=== PATIENT | male | born 1935 | race Caucasian/White ===

== ENCOUNTER 2020-01-20 09:15 | Inpatient (IN) | payer MEDICARE, OTHER ==
[2020-01-20] MEDS ORDERED: NALOXONE 0.4 MG/ML 1 ML VIAL IV PRN (17:38)
[2020-01-20] MEDS ORDERED: ACETAMINOPHEN TAB 500 MG TAB PO PRN (17:41)
[2020-01-20] MEDS ORDERED: IPRATROPIUM-ALBUTEROL 3 ML NEB INHALATION PRN (17:41)
[2020-01-20] MEDS ORDERED: HYDROmorphone 0.5 MG/0.5 ML SYRINGE IVP PRN (17:41)
--- NOTE | 2020-01-20 18:18 | XR ---
EXAMINATION TYPE: XR chest 1V portable DATE OF EXAM: 01/20/2020 COMPARISON: NONE HISTORY: Rib fractures. Pain TECHNIQUE: Single view FINDINGS: There is some pulmonary vascular congestion. Heart is enlarged. There are sternal wires. Th ere are chest leads. There is severe narrowing of the subacromial joint spaces. There is fracture of the lateral right eighth and ninth ribs. There is osteopenia. IMPRESSION: There is evidence of congestive heart failure. Right lower lateral nondisplaced rib fractures.
[2020-01-20 18:19] LABS: Anisocytosis Slight; Basophils % (A) 0 %; Eosinophils # (A) 0.1 k/uL (0-0.7); Eosinophils % (A) 0 %; HGB 7.9 gm/dL (13.0-17.5); Hypochromasia Marked; Lymphocytes # (A) 0.7 k/uL (1.0-4.8); Lymphocytes % (A) 5 %; MCH 21.2 pg (25.0-35.0); MCHC 28.2 g/dL (31.0-37.0); MCV 75.3 fL (80.0-100.0); Mean Platelet Volume 7.3; Microcytosis Slight; Monocytes # (A) 0.5 k/uL (0-1.0); Monocytes % (A) 4 %; Neutrophils # (A) 11.6 k/uL (1.3-7.7); Neutrophils % (A) 89 %; Platelet Count 377 k/uL (150-450); RBC 3.71 m/uL (4.30-5.90); RDW 17.7 % (11.5-15.5); WBC 13.1 k/uL (3.8-10.6)
[2020-01-20] MEDS: SODIUM CHLORIDE 0.9% 1,000 ML IV SCH (18:39)
[2020-01-20 18:44] LABS: Calcium 8.4 mg/dL (8.4-10.2); Magnesium 1.7 mg/dL (1.6-2.3); Phosphorus 4.2 mg/dL (2.5-4.5); Potassium 5.1 mmol/L (3.5-5.1); Total Bilirubin 0.3 mg/dL (0.2-1.3); Total Protein 6.9 g/dL (6.3-8.2)
[2020-01-20] MEDS: FUROSEMIDE 10 MG/ML 4 ML VIAL IV SCH (18:47)
--- NOTE | 2020-01-20 19:59 | P.CNPUL ---
History of Present Illness Consult date: 01/20/20 Chief complaint: rib fracture History of present illness: A very pleasant 62-year-old male patient with known history of dementia and addition to coronary artery disease with previous bypass surgery and previous stroke with left-sided weakness and diabetes mellitus and previous history of pulmonary embolism that occurred 2 years ago has limited on Xarelto on outpatient basis. The patient had a bout of fall yesterday. Apparently tried to go to the bathroom at around 5 AM and he was found on the floor. There is no reported loss of consciousness. He apparently tripped and fell and he landed on his right chest. he went into [facility] with a CAT scan of the chest was done. This was done with contrast. It reported a questionable right lower lobe pulmonary embolism. As background emphysema. In addition to that the patient had fractures extending from the fifth 2 the 10th rib. The chest x-ray showing increased pulmonary vascular congestion/edema. He is known to have CAD and CHF. No major edema lower extremities. Currently is on 3 L about 2 by nasal cannula. He is a bit confused. Is a poor historian. Most of the information obtained is from the . No hematoma across his right chest. No bleeding. Hemoglobin currently is at 7.9. Creatinine is at 1.3. Glucose at 232. Electrodes are within normal limits. White cell count at 13.1. The patient was started on IV Lasix. In regards to pain control, the patient is receiving Dilaudid 0.5 mg every 6 hours. Over the past 1 year, the patient had another episode of fall that left no injuries to his body. Of the Brain That Was Done and [facility] Showed No Acute Intracranial Hemorrhage and There Is No Acute Abnormalities. There Is a Old Stroke Involving the Right Insular White Matter. Review of Systems ROS unobtainable: due to mental status Eyes: denies as per HPI, denies blurred vision, denies bulging eye, denies decreased vision, denies diplopia, denies discharge, denies dry eye, denies irritation, denies itching, denies pain, denies photophobia, denies loss of per ipheral vision, denies loss of vision, denies tunnel vision/blind spots Ears: bilateral: decreased hearing, deny: ear discharge, earache, tinnitus Ears, nose, mouth and throat: Reports as per HPI Cardiovascular: Reports chest pain Respiratory: Reports as per HPI Gastrointestinal: Reports as per HPI Genitourinary: Reports as per HPI, Reports urinary frequency Musculoskeletal: Reports fractures, Reports frequent falls Musculoskeletal: absent: ankle pain, ankle stiffness, ankle swelling Integumentary: Reports as per HPI Neurological: Reports as per HPI Psychiatric: Reports as per HPI, Reports anxiety Endocrine: Reports as per HPI, Reports fatigue Hematologic/Lymphatic: Reports as per HPI Allergic/Immunologic: Reports as per HPI Past Medical History Past Medical History: Coronary Artery Disease (CAD), Chest Pain / Angina, CVA/TIA, Dementia, Diabetes Mellitus, Hyperlipidemia, Hypertension, Memory Impai rment, Myocardial Infarction (NM), Osteoarthritis (OA), Prostate Disorder, Pulmonary Embolus (PE) Additional Past Medical History / Comment(s): BPH, PE Last Myocardial Infarction Date:: 2007 History of Any Multi-Drug Resistant Organisms: None Reported Past Surgical History: Appendectomy, Coronary Bypass/CABG, Heart Catheterization With Stent, Tonsillectomy Additional Past Surgical History / Comment(s): TRKR, bilat rotator cuff surgery, Past Anesthesia/Blood Transfusion Reactions: Previous Problems w/ Anesthesia Additional Past Anesthesia/Blood Transfusion Reaction / Comment(s): difficult to wake up Date of Last Stent Placement:: 2007 Smoking Status: Former smoker - Past Family History Father Family Medical History: Cancer Additional Family Medical History / Comment(s): lung CA Mother Family Medical History: AICD/Pacemaker Medications and Allergies Home Medications Medication Instructions Recorded Confirmed Type Donepezil [Aricept] 5 mg PO HS 01/20/20 01/20/20 History Metoprolol Tartrate 25 mg PO DAILY 01/20/20 01/20/20 History Omeprazole 20 mg PO BID 01/20/20 01/20/20 History Oxybutynin Chloride [Ditropan] 5 mg PO BID 01/20/20 01/20/20 History Pravastatin Sodium [Pravachol] 40 mg PO HS 01/20/20 01/20/20 History Rivaroxaban [Xarelto] 20 mg PO HS 01/20/20 01/20/20 History Sertraline [Zoloft] 50 mg PO DAILY 01/20/20 01/20/20 History Tamsulosin [Flomax] 0.4 mg PO DAILY 01/20/20 01/20/20 History glipiZIDE [Glucotrol XL] 10 mg PO BID 01/20/20 01/20/20 History metFORMIN HCL 1,000 mg PO DAILY 01/20/20 01/20/20 History Allergies Allergy/AdvReac Type Severity Reaction Status Date / Time No Known Allergies Allergy Verified 01/20/20 18:06 Physical Exam Vitals: Vital Signs Temp Pulse Resp BP Pulse Ox 01/20/20 17:13 97.4 F L 90 17 135/72 89 L Intake and Output 01/20/20 01/20/20 01/20/20 06:59 14:59 22:59 Intake Total 240 Balance 240 Intake: Oral 240 Other: Weight 89 kg Gen. appearance, comfortable currently on 6 L of oxygen by nasal cannula. No significant respiratory distress at this point in time. He is a poor historian. Unable to volunteer detailed history. Head exam was generally normal. There was no scleral icterus or corneal arcus. Mucous membranes were moist. Neck was supple and without jugular venous distension, thyromegaly, or carotid bruits. Carotids were easily palpable bilaterally. There was no adenopathy. Lungs sounds are diminished and there are crackles in the mid and lower lung tsai bilaterally. There is also soreness across his right lateral chest area. This is sore to palpation. No hematoma. No major deformities. Cardiac exam revealed the PMI to be normally situated and sized. The rhythm was regular and no extrasystoles were noted during several minutes of auscultation. The first and second heart sounds were normal and physiologic splitting of the second heart sound was noted. There were no murmurs, rubs, clicks, or gallops. There is a thoracotomy scar over the anterior chest area which is dry clean and intact. Final abdomen Abdominal exam revealed normal bowel sounds. The abdomen was soft, non-tender, and without masses, organomegaly, or appreciable enlargement of the Examination of the extremities revealed easily palpable radial, femoral and pedal pulses. There was no cyanosis, clubbing or edema. Examination of the skin revealed no evidence of significant rashes, suspicious appearing nevi or other concerning lesions. Neurologically the patient has some limited impairment including memory. Is moving all 4 extremities without any limitation. Pupils are equal and reactive to light. He has some left-sided weakness. This is related to a previous CVA. Results - Laboratory Findings CBC and BMP: 01/20/20 17:58 01/20/20 17:58 ABG WBC 13.1 k/uL (3.8-10.6) H 01/20/20 17:58 RBC 3.71 m/uL (4.30-5.90) L 01/20/20 17:58 Hgb 7.9 gm/dL (13.0-17.5) L 01/20/20 17:58 Hct 28.0 % (39.0-53.0) L 01/20/20 17:58 MCV 75.3 fL (80.0-100.0) L 01/20/20 17:58 MCH 21.2 pg (25.0-35.0) L 01/20/20 17:58 MCHC 28.2 g/dL (31.0-37.0) L 01/20/20 17:58 RDW 17.7 % (11.5-15.5) H 01/20/20 17:58 Plt Count 377 k/uL (150-450) 01/20/20 17:58 Neutrophils % 89 % 01/20/20 17:58 Lymphocytes % 5 % 01/20/20 17:58 Monocytes % 4 % 01/20/20 17:58 Eosinophils % 0 % 01/20/20 17:58 Basophils % 0 % 01/20/20 17:58 Neutrophils # 11.6 k/uL (1.3-7.7) H 01/20/20 17:58 Lymphocytes # 0.7 k/uL (1.0-4.8) L 01/20/20 17:58 Monocytes # 0.5 k/uL (0-1.0) 01/20/20 17:58 Eosinophils # 0.1 k/uL (0-0.7) 01/20/20 17:58 Basophils # 0.0 k/uL (0-0.2) 01/20/20 17:58 Hypochromasia Marked 01/20/20 17:58 Anisocytosis Slight 01/20/20 17:58 Microcytosis Slight 01/20/20 17:58 Sodium 137 mmol/L (137-145) 01/20/20 17:58 Potassium 5.1 mmol/L (3.5-5.1) 01/20/20 17:58 Chloride 104 mmol/L (98-107) 01/20/20 17:58 Carbon Dioxide 23 mmol/L (22-30) 01/20/20 17:58 Anion Gap 10 mmol/L 01/20/20 17:58 BUN 20 mg/dL (9-20) 01/20/20 17:58 Creatinine 1.31 mg/dL (0.66-1.25) H 01/20/20 17:58 Est GFR (CKD-EPI)AfAm 58 (>60 ml/min/1.73 sqM) 01/20/20 17:58 Est GFR (CKD-EPI)NonAf 51 (>60 ml/min/1.73 sqM) 01/20/20 17:58 Glucose 232 mg/dL (74-99) H 01/20/20 17:58 Calcium 8.4 mg/dL (8.4-10.2) 01/20/20 17:58 Phosphorus 4.2 mg/dL (2.5-4.5) 01/20/20 17:58 Magnesium 1.7 mg/dL (1.6-2.3) 01/20/20 17:58 Total Bilirubin 0.3 mg/dL (0.2-1.3) 01/20/20 17:58 AST 23 U/L (17-59) 01/20/20 17:58 ALT 14 U/L (4-49) 01/20/20 17:58 Alkaline Phosphatase 65 U/L (38-126) 01/20/20 17:58 Troponin I 0.088 ng/mL (0.000-0.034) H* 01/20/20 17:58 NT-Pro-B Natriuret Pep 3180 pg/mL 01/20/20 18:08 Total Protein 6.9 g/dL (6.3-8.2) 01/20/20 17:58 Albumin 4.0 g/dL (3.5-5.0) 01/20/20 17:58 Abnormal lab findings: Abnormal Labs 01/20/20 01/20/20 01/20/20 17:58 17:58 17:58 WBC 13.1 H RBC 3.71 L Hgb 7.9 L Hct 28.0 L MCV 75.3 L MCH 21.2 L MCHC 28.2 L RDW 17.7 H Neutrophils # 11.6 H Lymphocytes # 0.7 L Creatinine 1.31 H Glucose 232 H Troponin I 0.088 H* - Diagnostic Findings Chest x-ray: image reviewed CT scan - chest: image reviewed Assessment and Plan Plan: 1 fall with traumatic right-sided fractures 5 through 10 2 skeletal chest wall pain involving the right lung/chest wall 3 acute hypoxic respiratory failure currently on 6 L of oxygen by nasal cannula. This is related to poor inspiratory effort secondary to pain in addition to a component of CHF/pulmonary edema. The patient has background COPD P I doubt pulmonary embolism is contributing to this as the patient was receiving anticoagulation with Xarelto on outpatient basis. No evidence of any motoric to this point in time 4 previous history of pulmonary embolism around 2 years ago and the patient is demented on long-term articulation with Xarelto 5 coronary artery disease with previous bypass surgery 6 history of CVA post carotid bypass surgery with some left-sided weakness 7 carotids artery disease 8 dementia 9 diabetes mellitus type 2 10 hyperlipidemia 11 BPH 12 anemia likely of a chronic in nature hemoglobin is at 7.9. Further monitored 13 history of falls 14 hypertension 15 impaired performance and functional status secondary to above-mentioned c omorbidities Plan Pain control with Dilaudid Provide the patient incentive spirometer Repeat chest x-ray in a.m. Obtain echocardiogram to assess LV function IV Lasix Wean off FiO2 as tolerated to maintain a saturation above 90% Inserted Martines catheter Watch for signs of delirium Monitor hemoglobin CODE STATUS is DNR/DNI Resume in the correlation with Xarelto. This is somewhat of a concern as the patient has had history of falls. Nevertheless, based on his previous history of pulmonary embolism and based on the small filling defect in the right lower lobe pulmonary artery branch, I is reasonable to resume anticoagulation for now with close monitoring of his hemoglobin and close monitoring to make sure there is no development of any pneumothorax or any other complications post fall. Res ume Xarelto 20 mg by mouth daily for now. Will follow
[2020-01-20 20:25] LABS: Appearance,Urine Clear (Clear); Bilirubin,Urine Negative (Negative); Blood,Urine Negative (Negative); Color,Urine Light Yellow; Glucose,Urine (UA) 1+ (Negative); Ketones,Urine Negative (Negative); Leukocyte Esterase,Urine Negative (Negative); Nitrite,Urine Negative (Negative); PH, Urine 5.5 (5.0-8.0); Protein,Urine Negative (Negative); Urobilinogen,Urine <2.0 mg/dL (<2.0)
[2020-01-20 20:32] LABS: Glucose,Whole Blood 256 mg/dL (75-99)
[2020-01-20] MEDS: IPRATROPIUM-ALBUTEROL 3 ML NEB INHALATION SCH (20:32)
[2020-01-20] MEDS: BUDESONIDE 1 MG/2 ML NEBU INHALATION SCH (20:32)
[2020-01-20] MEDS ORDERED: PRAVASTATIN SODIUM 40 MG TAB PO SCH (21:00)
[2020-01-20] MEDS ORDERED: HEPARIN SODIUM,PORCINE 5,000 UNIT/ML 1 ML VIAL SQ SCH (21:00)
[2020-01-20] MEDS: HYDROcodone/APAP 5-325MG 1 EACH TAB PO PRN (21:19)
[2020-01-20] MEDS: INSULIN ASPART (NovoLOG) 100 UNIT/ML VIAL SQ SCH (21:21)
[2020-01-20] MEDS: OXYBUTYNIN CHLORIDE 5 MG TAB PO SCH (21:28)
[2020-01-20] MEDS: DONEPEZIL 5 MG TAB PO SCH (21:29)
[2020-01-20] MEDS: glipiZIDE 10 MG TAB PO SCH (21:31)
[2020-01-20] MEDS: PANTOPRAZOLE 40 MG TABLET PO SCH (21:31)
[2020-01-20] MEDS: methylPREDNISolone SOD SUCCI 40 MG/ML 1 ML VIAL IV SCH ×2 (22:06→23:55)
[2020-01-20] MEDS: KETOROLAC 30 MG/ML 1 ML VIAL IVP SCH (23:47)
[2020-01-21] MEDS: FUROSEMIDE 10 MG/ML 4 ML VIAL IV SCH ×2 (00:04→09:00)
--- NOTE | 2020-01-21 00:08 | HP ---
HISTORY AND PHYSICAL CHIEF COMPLAINTS: Fall and right-sided chest pain. HISTORY OF PRESENT ILLNESS: This 84-year-old gentleman with a past medical history of multiple medical problems including left-sided hemiplegia, history of CAD, CVA, TIA, dementia, diabetes, hypertension, hyperlipidemia, history of memory impairment, history of CAD, CABG stent being followed by primary physician in the [place] area apparently had a fall and subsequently patient complaining of severe right-sided chest pain. Patient taken to [facility] and evaluation showed evidence of right 8th and 9th rib fracture and the patient also has a suspected small pulmonary embolism on the right side and the patient subsequently transferred to [facility] as a direct admission at this time. Currently the patient is confused, unable to give a coherent history. Most of the history taken from my discussion with staff and review of the chart at this time. Dr. Poe has evaluated the patient and recommended to continue the Xarelto at this time. Evaluation including a CT scan of the brain and CT scan of the chest done in the [facility] did not show any evidence of active bleeding. CT brain only showed features of old stroke on the right frontal area. Currently as mentioned earlier, patient has excruciating pain especially while moving on the chest. Otherwise, there is no history of fever, rigors or chills. No history of headache, loss of consciousness of seizures. Chest x-ray here showed possible fluid overload, possible pneumonia. White count is slightly elevated. Empiric antibiotics recommended at this time. Patient is started on IV Lasix also. Cardiology also has been consulted. The troponin was found to be 0.088, indeterminate. NT proBNP is 3182. Sugar is elevated. PAST MEDICAL HISTORY: History of CAD, history of CVA, dementia, history of diabetes, hypertension, hyperlipidemia, memory impairment, DJD, history of pulmonary embolism, history of BPH, history of CAD, CABG stent. MEDICATIONS: Home medications are as follows: 1. Xarelto 20 mg q.h.s. 2. Omeprazole 20 mg p.o. b.i.d. 3. Zoloft 50 mg p.o. daily. 4. Pravachol 40 mg q.h.s. 5. Ditropan 5 mg p.o. b.i.d. 6. Glucotrol 10 mg p.o. b.i.d. 7. Flomax 0.4 daily. 8. Metoprolol 25 mg p.o. 9. Aricept 5 mg at bedtime. 10.Metformin 1000 mg p.o. daily. ALLERGIES: None. Family history, social history and review of systems could not be taken because of the patient's change in mental status. Family history of lung cancer per chart. PHYSICAL EXAM: Patient is conscious, confused. Pulse is 90. Blood pressure 130/72, respirations 17, temperature 97.4, pulse ox 89 percent on 6 L. HEENT: Conjunctivae normal. Oral mucosa moist. Neck is no jugular venous distention. No carotid bruit. No lymph node enlargement. Cardiovascular system: S1, S2 muffled. Respirations: Breath sounds diminished in the bases. Bilateral scattered rhonchi and crackles. ABDOMEN: Soft, nontender. LEGS: No edema. No swelling. NERVOUS SYSTEM: Higher functions as mentioned earlier. Diffusely weak, left more than the right with severe excruciating tenderness in the right lower chest present. SKIN: No ulcers, no rashes and no bleeding. JOINTS: No active deforming arthropathy. LYMPHATICS: No lymph nodes palpable in the neck, axillae or groin. LAB STUDIES: WBC 13.2, hemoglobin 7.9, platelets are 377, MCV 75.3 creatinine is 1.31. Troponin 0.088. ASSESSMENT: 1. Fall and severe pain with the right lateral 8th and 9th rib fractures. 2. Possible congestive heart failure, acute exacerbation ejection fraction unknown. 3. Possible chronic obstructive pulmonary disease. 4. Possible bronchopneumonia versus aspiration pneumonia. 5. Increased WBC. 6. Anemia, microcytic, rule out blood loss anemia, etiology undetermined. 7. History of nicotine dependence. 8. Diabetes mellitus type 2 with hyperglycemia uncontrolled. 9. Increased creatinine with acute renal failure with acute tubular necrosis. 10.Troponin 0.088, indeterminate. Rule out acute bmr-[id number]-elevation myocardial infarction. 11.History of coronary artery disease. 12.History of angina. 13.Cerebrovascular accident, transient ischemic attack. 14.History of dementia. 15.Hyperlipidemia. 16.Hypertension. 17.History of diabetes type 2. 18.History of memory impairment. 19.History of degenerative joint disease. 20.History of pulmonary embolism. 21.History of prostate disorder. 22.History of benign prostatic hypertrophy. 23.History of coronary artery disease, coronary artery bypass grafting/stent. 24.History of anxiety, depression. 25.NO CODE, NO CPR, NO VENT. 26.Gait dysfunction. RECOMMENDATIONS AND DISCUSSION: In this 84-year-old gentleman who presented with multiple complex medical issues, at this time, I recommend to continue the current medications, possible COPD next. Recommend continue the current medications, management and symptomatic treatment. Continue with IV Lasix. Monitor fluid/electrolyte balance closely. Pain management. Otherwise, repeat labs. Monitor blood sugars closely. Resume the home medications. Dr. Poe recommends initiate Xarelto. We will continue to monitor. There is no evidence of active bleeding at this time. Prognosis guarded because of multiple complex medical issues. I would also recommend a course of empiric antibiotics as well as steroids also. Once again, the prognosis guarded. Further recommendations to follow. Also recommend PT/OT evaluation and explore the possibility of ECF rehab. The patient continues to be NO CODE. Further recommendations to follow. JOHAN / ADOLPHN: [id number] /
[2020-01-21] MEDS: HYDROmorphone 0.5 MG/0.5 ML SYRINGE IVP PRN ×2 (01:14→05:36)
[2020-01-21 03:48] LABS: Glucose,Whole Blood 367 mg/dL (75-99)
[2020-01-21] MEDS: HYDROcodone/APAP 5-325MG 1 EACH TAB PO PRN ×3 (03:58→23:59)
[2020-01-21] MEDS: PANTOPRAZOLE 40 MG TABLET PO SCH ×2 (05:34→17:15)
[2020-01-21] MEDS: glipiZIDE 10 MG TAB PO SCH ×2 (05:34→17:15)
[2020-01-21 06:07] LABS: Glucose,Whole Blood 392 mg/dL (75-99)
[2020-01-21] MEDS: INSULIN ASPART (NovoLOG) 100 UNIT/ML VIAL SQ SCH ×4 (06:30→20:38)
[2020-01-21] MEDS ORDERED: PANTOPRAZOLE 40 MG TABLET PO SCH (07:30)
--- NOTE | 2020-01-21 08:17 | XR ---
EXAMINATION TYPE: XR chest 1V DATE OF EXAM: 01/21/2020 COMPARISON: 01/20/2020 HISTORY: Pain post fall TECHNIQUE: Single frontal view of the chest is obtained. FINDINGS: A bilateral areas of consolidation and pleural effusion noted. Postoperative change noted. No sizable pneumothorax. Postsurgical change left shoulder. Arthropathy in the shoulders and diffuse osteopenia. Suggestion of rib deformities along the right lateral rib cage correlate for fracture. IMPRESSION: Bilateral consolidation pleural effusion correlate for mild venous congestion or chronic interstitial lung disease. No sizable pneumothorax. Right-sided rib fracture suspected.
[2020-01-21] MEDS ORDERED: metFORMIN 500 MG TAB PO SCH (09:00)
[2020-01-21] MEDS: methylPREDNISolone SOD SUCCI 40 MG/ML 1 ML VIAL IV SCH (09:00)
[2020-01-21] MEDS: TAMSULOSIN 0.4 MG CAP.ER.24H PO SCH (09:01)
[2020-01-21] MEDS: OXYBUTYNIN CHLORIDE 5 MG TAB PO SCH ×2 (09:01→20:39)
[2020-01-21] MEDS: SERTRALINE 50 MG TAB PO SCH (09:01)
[2020-01-21] MEDS: KETOROLAC 30 MG/ML 1 ML VIAL IVP SCH ×3 (09:01→23:08)
[2020-01-21] MEDS: METOPROLOL TARTRATE 25 MG TAB PO SCH (09:01)
[2020-01-21] MEDS: IPRATROPIUM-ALBUTEROL 3 ML NEB INHALATION SCH ×4 (09:09→20:27)
[2020-01-21] MEDS: BUDESONIDE 1 MG/2 ML NEBU INHALATION SCH ×2 (09:09→20:26)
[2020-01-21 11:27] LABS: Anisocytosis Slight; Basophils % (A) 0 %; Eosinophils % (A) 0 %; HCT 27.5 % (39.0-53.0); HGB 7.6 gm/dL (13.0-17.5); Hypochromasia Marked; Lymphocytes # (A) 0.3 k/uL (1.0-4.8); Lymphocytes % (A) 2 %; MCH 21.1 pg (25.0-35.0); MCHC 27.7 g/dL (31.0-37.0); MCV 76.2 fL (80.0-100.0); Mean Platelet Volume 7.4; Microcytosis Slight; Monocytes # (A) 0.5 k/uL (0-1.0); Monocytes % (A) 4 %; Neutrophils # (A) 11.7 k/uL (1.3-7.7); Neutrophils % (A) 92 %; Platelet Count 341 k/uL (150-450); RBC 3.61 m/uL (4.30-5.90); RDW 17.7 % (11.5-15.5); WBC 12.7 k/uL (3.8-10.6)
--- NOTE | 2020-01-21 11:27 | P.CRDCN ---
History of Present Illness Consult date: 01/21/20 Requesting physician: Brandon E Sheet Consult reason: sycope Chief complaint: Syncope History of present illness: This is a pleasant 84-year-old gentleman with known history of coronary artery disease and prior bypass surgery, hypertension, diabetes, hyperlipidemia, prior pulmonary embolism, prostate enlargement, prior CVA, mild dementia, transferred here from [facility]. According to the patient, he was walking into the bathroom to urinate, he stood in front of the toilet, and the next thing he recalls is waking up on the floor. He denies any dizziness or lightheadedness, denies any chest discomfort, no palpitations, and no shortness of breath. CAT scan of the brain was performed at [facility], no acute intracranial hemorrhage or midline shift. There is a border zone infarct between the right anterior and middle cerebral arteries, this involves a large portion of the right frontal and parietal lobe. Old listener infarct noted significant white matter changes. CTA of the chest was also performed it did reveal pulmonary embolus located at the right lower lobe pulmonary artery cardiomegaly and a patient that has history of placement of left atrial appendage occluder also history of bypass. Multiple right lateral rib fractures involving the fifth and 10th ribs. Sodium 137, potassium 4.4, BUN 18, creatinine 1.6. White blood cell count 16.7, hemoglobin 7.1, platelet count 396. His home medications include metformin thousand milligrams twice a day, Glucotrol 10 mg twice a day, metoprolol 25 mg daily, Flomax, pravastatin 40 mg daily, Zoloft 50 mg daily, and xarelto 20 mg daily. Chest x-ray on arrival here showed evidence of congestive cardiac failure. Right lower lateral nondisplaced rib fractures. Repeat chest x-ray this morning showed bilateral consolidation and pleural effusion and mild venous congestion. Blood pressure 132/80 with a heart rate in the 90s, 96% on 10 L high flow. White blood cell count 13.1, hemoglobin 7.9, platelet count 377. Sodium 137, potassium 5.1, BUN 20, creatinine 1.3. BNP level 3180. Troponins 0.088, 0.121, 0.147. Influenza A and B-. A shunt seen and examined this morning, sitting up in bed, denies any chest discomfort or breathing difficulty. Past Medical History Past Medical History: Coronary Artery Disease (CAD), Chest Pain / Angina, CVA/TIA, Dementia, Diabetes Mellitus, Hyperlipidemia, Hypertension, Memory Impairment, Myocardial Infarction ([place]), Osteoarthritis (OA), Prostate Disorder, Pulmonary Embolus ([place]) Additional Past Medical History / Comment(s): BPH, PE Last Myocardial Infarction Date:: 2007 History of Any Multi-Drug Resistant Organisms: None Reported Past Surgical History: Appendectomy, Coronary Bypass/CABG, Heart Catheterization With Stent, Tonsillectomy Additional Past Surgical History / Comment(s): TRKR, bilat rotator cuff surgery, Past Anesthesia/Blood Transfusion Reactions: Previous Problems w/ Anesthesia Additional Past Anesthesia/Blood Transfusion Reaction / Comment(s): difficult to wake up Date of Last Stent Placement:: 2007 Smoking Status: Former smoker - Past Family History Father Family Medical History: Cancer Additional Family Medical History / Comment(s): lung CA Mother Family Medical History: AICD/Pacemaker Medications and Allergies Home Medications Medication Instructions Recorded Confirmed Type Donepezil [Aricept] 5 mg PO HS 01/20/20 01/20/20 History Metoprolol Tartrate 25 mg PO DAILY 01/20/20 01/20/20 History Omeprazole 20 mg PO BID 01/20/20 01/20/20 History Oxybutynin Chloride [Ditropan] 5 mg PO BID 01/20/20 01/20/20 History Pravastatin Sodium [Pravachol] 40 mg PO HS 01/20/20 01/20/20 History Rivaroxaban [Xarelto] 20 mg PO HS 01/20/20 01/20/20 History Sertraline [Zoloft] 50 mg PO DAILY 01/20/20 01/20/20 History Tamsulosin [Flomax] 0.4 mg PO DAILY 01/20/20 01/20/20 History glipiZIDE [Glucotrol XL] 10 mg PO BID 01/20/20 01/20/20 History metFORMIN HCL 1,000 mg PO DAILY 01/20/20 01/20/20 History Allergies Allergy/AdvReac Type Severity Reaction Status Date / Time No Known Allergies Allergy Verified 01/20/20 18:06 Physical Exam Vitals: Vital Signs Temp Pulse Pulse Resp BP Pulse Ox 01/21/20 09:21 88 01/21/20 09:09 84 01/21/20 08:58 16 96 01/21/20 08:10 97.6 F 96 16 132/80 96 01/21/20 04:38 98.2 F 93 18 157/89 92 L 01/21/20 00:18 97 01/21/20 00:08 97.6 F 116 H 22 136/75 90 L 01/20/20 20:43 91 18 01/20/20 20:32 90 18 01/20/20 17:13 97.4 F L 90 17 135/72 89 L Intake and Output 01/20/20 01/21/20 01/21/20 22:59 06:59 14:59 Intake Total 240 480 Output Total 900 1125 Balance -660 -1125 480 Intake: Oral 240 480 Output: Urine 900 1125 Other: Voiding Method Indwelling Catheter Indwelling Catheter Indwelling Catheter Weight 89 kg 88 kg PHYSICAL EXAMINATION: GENERAL: 84-year-old gentleman in no acute distress at the time of my examination HEENT: Head is atraumatic, normocephalic. Pupils equal, round. Sclera anicteric. Conjunctiva are clear. Mucous membranes of the mouth are moist. Neck is supple. There is no elevated jugular venous pressure. No carotid bruit is heard. HEART EXAMINATION: Heart S1 S2 1 systolic murmur is heard CHEST EXAMINATION: And's or diminished bilaterally with crackles heard bilaterally, there is also some tenderness noted in the right lateral chest and rib area. ABDOMEN: Soft, nontender. Bowel sounds are heard. No organomegaly noted. EXTREMITIES: 2+ peripheral pulses with no evidence of peripheral edema and no calf tenderness noted. NEUROLOGIC patient is awake, alert and oriented 3, he does however have some limited memory impairment. . . Results 01/20/20 17:58 01/20/20 17:58 Cardiac Enzymes 01/20/20 01/20/20 01/20/20 Range/Units 17:58 17:58 23:40 AST 23 (17-59) U/L Troponin I 0.088 H* 0.121 H* (0.000-0.034) ng/mL 01/21/20 Range/Units 06:09 AST (17-59) U/L Troponin I 0.147 H* (0.000-0.034) ng/mL CBC 01/20/20 Range/Units 17:58 WBC 13.1 H (3.8-10.6) k/uL RBC 3.71 L (4.30-5.90) m/uL Hgb 7.9 L (13.0-17.5) gm/dL Hct 28.0 L (39.0-53.0) % Plt Count 377 (150-450) k/uL Comprehensive Metabolic Panel 01/20/20 Range/Units 17:58 Sodium 137 (137-145) mmol/L Potassium 5.1 (3.5-5.1) mmol/L Chloride 104 (98-107) mmol/L Carbon Dioxide 23 (22-30) mmol/L BUN 20 (9-20) mg/dL Creatinine 1.31 H (0.66-1.25) mg/dL Glucose 232 H (74-99) mg/dL Calcium 8.4 (8.4-10.2) mg/dL AST 23 (17-59) U/L ALT 14 (4-49) U/L Alkaline Phosphatase 65 (38-126) U/L Total Protein 6.9 (6.3-8.2) g/dL Albumin 4.0 (3.5-5.0) g/dL Current Medications Generic Name Dose Route Start Last Admin Trade Name Freq PRN Reason Stop Dose Admin Acetaminophen 500 mg 01/20/20 17:41 Tylenol Tab PO Q6HR PRN Fever and/ or Pain Hydrocodone Bitart/Acetaminophen 1 each 01/20/20 17:41 01/21/20 03:58 [place] 5-325 PO 1 each Q6HR PRN Administration Pain Albuterol/Ipratropium 3 ml 01/20/20 20:00 01/21/20 09:09 Duoneb 0.5 Mg-3 Mg/3 Ml Soln INHALATION 3 ml RT-QID SONIDO Administration Albuterol/Ipratropium 3 ml 01/20/20 17:41 Duoneb 0.5 Mg-3 Mg/3 Ml Soln INHALATION RT-QID PRN Shortness Of Breath Or Wheezing Alprazolam 0.25 mg 01/20/20 17:41 Xanax PO TID PRN Anxiety Budesonide 1 mg 01/20/20 20:00 01/21/20 09:09 Pulmicort INHALATION 1 mg RT-BID SONIDO Administration Donepezil HCl 5 mg 01/20/20 21:00 01/20/20 21:29 Aricept PO 5 mg HS SONIDO Administration Furosemide 40 mg 01/20/20 18:30 01/21/20 09:00 Lasix IV 40 mg Q8HR SONIDO Administration Glipizide 10 mg 01/20/20 21:00 01/21/20 05:34 Glucotrol PO 10 mg BID-W/MEALS SONIDO Administration Hydromorphone HCl 0.5 mg 01/20/20 21:34 01/21/20 05:36 Dilaudid IVP 0.5 mg Q3HR PRN Administration Severe Pain Sodium Chloride 1,000 mls @ 20 mls/hr 01/20/20 17:45 01/20/20 18:39 Saline 0.9% IV 20 mls/hr .Q24H SONIDO Administration Ceftriaxone Sodium 1 gm/ 50 mls @ 100 mls/hr 01/20/20 21:30 01/20/20 22:07 Sodium Chloride IVPB 100 mls/hr Q24H SONIDO Administration Insulin Aspart 0 unit 01/21/20 12:30 Novolog SQ ACHS SONIDO Protocol Ketorolac Tromethamine 15 mg 01/21/20 00:00 01/21/20 09:01 Toradol IVP 01/24/20 21:33 15 mg Q8HR SONIDO Administration Metformin HCl 1,000 mg 01/21/20 09:00 01/21/20 09:02 Glucophage PO 1,000 mg DAILY SONIDO Administration Methylprednisolone Sodium Succinate 40 mg 01/20/20 21:32 01/21/20 09:00 Solu-Medrol IV 40 mg Q8HR SONIDO Administration Metoprolol Tartrate 25 mg 01/21/20 09:00 01/21/20 09:01 Lopressor PO 25 mg DAILY SONIDO Administration Naloxone HCl 0.2 mg 01/20/20 17:38 Narcan IV Q2M PRN Opioid Reversal Oxybutynin Chloride 5 mg 01/20/20 21:00 01/21/20 09:01 Ditropan PO 5 mg BID SONIDO Administration Pantoprazole Sodium 40 mg 01/20/20 21:00 01/21/20 05:34 Protonix PO 40 mg AC-BID SONIDO Administration Pravastatin Sodium 40 mg 01/20/20 21:00 01/20/20 21:28 Pravachol PO 40 mg HS SONIDO Administration Rivaroxaban 20 mg 01/21/20 17:30 Xarelto PO W/SUPPER SONIDO Sertraline HCl 50 mg 01/21/20 09:00 01/21/20 09:01 Zoloft PO 50 mg DAILY SONIDO Administration Tamsulosin HCl 0.4 mg 01/21/20 09:00 01/21/20 09:01 Flomax PO 0.4 mg DAILY SONIDO Administration Intake and Output 01/20/20 01/21/20 01/21/20 22:59 06:59 14:59 Intake Total 240 480 Output Total 900 1125 Balance -660 -1125 480 Intake: Oral 240 480 Output: Urine 900 1125 Other: Voiding Method Indwelling Catheter Indwelling Catheter Indwelling Catheter Weight 89 kg 88 kg 01/20/20 17:58 01/20/20 17:58 EKG Interpretations (text) EKG shows a sinus tachycardia with a first-degree AV block, LVH strain pattern. Assessment and Plan Plan: Assessment and plan #1 syncope, possible micturition syncope, rule out cardiac causes. #2 right-sided rib fractures #3 acute on chronic respiratory failure, possible component of congestive heart failure, and COPD. #4 history of pulmonary embolism 2 years ago, on anticoagulation with xarelto #5 history of CVA #6 coronary artery disease with prior bypass surgery #7 dementia #8 diabetes #9 hyperlipidemia #10 hypertension #11 anemia #12 chronic anemia #13 COPD #14 abnormal troponin, could be secondary to abnormal renal function and hypoxia. Cannot completely rule out acute coronary syndrome. Plan We will obtain an echocardiogram with Doppler study. We will continue to monitor for any significant tachycardia or bradycardia arrhythmias. Continue Xarelto for recent diagnosis of pulmonary embolism, monitoring hemoglobin closely. Check orthostatic heart rate and blood pressure every shift. Further recommendations to follow. DNP note has been reviewed, I agree with a documented findings and plan of care. Patient was seen and examined.
[2020-01-21 11:41] LABS: Glucose,Whole Blood 508 mg/dL (75-99)
--- NOTE | 2020-01-21 11:44 | ECHOF ---
Referral Reason:chf MEASUREMENTS -------- HEIGHT: 172.7 cm WEIGHT: 88.0 kg BP: 157/89 RVIDd: 3.0 cm (< 3.3) IVSd: 1.1 cm (0.6 - 1.1) LVIDd: 5.0 cm (3.9 - 5.3) LVPWd: 1.3 cm (0.6 - 1.1) IVSs: 1.8 cm LVIDs: 1.3 cm LVPWs: 1.7 cm LAESV Index (A-L): 69.78 ml/m Ao Diam: 4.0 cm (2.0 - 3.7) AV Cusp: 1.3 cm (1.5 - 2.6) LA Diam: 4.8 cm (2.7 - 3.8) MV EXCURSION: 14.230 mm (> 18.000) MV EF SLOPE: 32 mm/s (70 - 150) EPSS: 1.5 cm MV E Nba: 1.42 m/s MV DecT: 173 ms MV A Nba: 1.26 m/s MV E/A Ratio: 1.13 AV maxP.52 mmHg AV meanP.51 mmHg RAP: 5.00 mmHg RVSP: 20.59 mmHg FINDINGS -------- Sinus rhythm. This was a technically difficult study with suboptimal views. The left ventricular size is normal. There is mild concentric left ventricular hypertrophy. Overa ll left ventricular systolic function is mildly impaired with, an EF between 45 - 50 %. Increased L AP Grade 3 Diastolic Dysfunction. Basal inferolateral hypokinesis. The right ventricle is normal in size. LA is severely dilated >40 ml/m2 The right atrial size is normal. Lumason used Aortic valve is trileaflet and is mildly thickened. There is mild aortic stenosis present. Peak/m gail gradient across the Aortic Valve is 19.52mmHg / 11.51mmHg. Can't exclude possible Bicuspid Aov. The mitral valve is normal. The mitral valve leaflets are mildly thickened. Mild mitral annular c alcification present. There is trace mitral regurgitation. The tricuspid valve appears structurally normal. Trace tricuspid regurgitation present. Right shonda tricular systolic pressure is normal at < 35 mmHg. There is no pulmonic regurgitation present. 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 IVC Not well visulized. There is no pericardial effusion. CONCLUSIONS -------- 1. Sinus rhythm. 2. This was a technically difficult study with suboptimal views. 3. The left ventricular size is normal. 4. There is mild concentric left ventricular hypertrophy. 5. Overall left ventricular systolic function is mildly impaired with, an EF between 45 - 50 %. 6. Increased LAP Grade 3 Diastolic Dysfunction. 7. Basal inferolateral hypokinesis. 8. The right ventricle is normal in size. 9. LA is severely dilated >40 ml/m2 10. The right atrial size is normal. 11. Lumason used 12. Aortic valve is trileaflet and is mildly thickened. 13. There is mild aortic stenosis present. 14. Peak/mean gradient across the Aortic Valve is 19.52mmHg / 11.51mmHg. 15. Can't exclude possible Bicuspid Aov. 16. The mitral valve is normal. 17. The mitral valve leaflets are mildly thickened. 18. Mild mitral annular calcification present. 19. There is trace mitral regurgitation. 20. The tricuspid valve appears structurally normal. 21. Trace tricuspid regurgitation present. 22. Right ventricular systolic pressure is normal at < 35 mmHg. 23. There is no pulmonic regurgitation present. 24. 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 25. IVC Not well visulized. 26. There is no pericardial effusion. INSTRUMENT TECHNOLOGIST: Jannet Plummer ELMIRA
[2020-01-21 11:45] LABS: Calcium 8.7 mg/dL (8.4-10.2)
[2020-01-21] MEDS ORDERED: INSULIN ASPART (NovoLOG) 100 UNIT/ML VIAL SQ ONE (11:46)
--- NOTE | 2020-01-21 12:18 | P.GSCN ---
History of Present Illness Consult date: 01/21/20 Reason for Consult: trauma Requesting physician: Lloyd Anthony History of present illness: CHIEF COMPLAINT: Trauma HISTORY OF PRESENT ILLNESS: 84-year-old male who is transferred from [facility] secondary to fall. General surgery was consulted for further evaluatio n. Patient examined at the bedside. Son present. Patient states he lives with his . He was walking to the bathroom. He got to the bathroom and the next thing he knew he was on the ground. He does not remember much of the events surrounding his fall. He reports pain to right chest wall. Denies any other concerns or complaints. PAST MEDICAL HISTORY: See list. PAST SURGICAL HISTORY: See list. SOCIAL HISTORY: No illicit drug use. REVIEW OF SYSTEMS: CONSTITUTIONAL: Denies fever or chills. HEENT: Denies blurred vision, vision changes, or eye pain. Denies hemoptysis CARDIOVASCULAR: Denies chest pain or pressure. RESPIRATORY: No shortness of breath. GASTROINTESTINAL: Refer to [facility] for pertinent findings HEMATOLOGIC: Denies bleeding disorders. GENITOURINARY: Denies any blood in urine. SKIN: Denies pruitis. Denies rash. PHYSICAL EXAM: VITAL SIGNS: Reviewed. GENERAL: Well-developed in no acute distress. HEENT: No sclera icterus. Extraocular movements grossly intact. Moist buccal mucosa. Head is atraumatic, normocephalic. ABDOMEN: Soft. Nondistended. Nontender. NEUROLOGIC: Alert and oriented. Cranial nerves II through XII grossly intact. LABORATORY DATA: WBC 13.1. Hemoglobin 7.9. Platelet count 377. Sodium 137. Potassium 5.1. BUN 20. Creatinine 1.31. Magnesium 1.7. BNP 3180. Troponin 0.088. 0.121. 0.147. IMAGING: -CAT scan performed at outside facility revealed questionable right lower lobe pulmonary embolism. Right Rib fractures of ribs 5 through 10. -Chest x-ray this morning reveals bilateral consolidation and pleural effusion. Correlate for mild venous congestion or chronic interstitial lung disease. No sizable pneumothorax. Right-sided rib fracture suspected. ASSESSMENT: 1. Fall 2. Right-sided rib fractures, 5-10 3. History of PE, maintained on long-term anticoagulation with Xarelto PLAN: -Pulmonary management per Dr. Poe. -Incentive spirometer -Monitor hemoglobin -Medical management per [facility] -No surgical intervention recommended Nurse practitioner note has been reviewed by physician. Signing provider agrees with the documented findings, assessment, and plan of care. Past Medical History Past Medical History: Coronary Artery Disease (CAD), Chest Pain / Angina, CVA/TIA, Dementia, Diabetes Mellitus, Hyperlipidemia, Hypertension, Memory Impairment, Myocardial Infarction ([place]), Osteoarthritis (OA), Prostate Disorder, Pulmonary Embolus (PE) Additional Past Medical History / Comment(s): BPH, PE Last Myocardial Infarction Date:: 2007 History of Any Multi-Drug Resistant Organisms: None Reported Past Surgical History: Appendectomy, Coronary Bypass/CABG, Heart Catheterization With Stent, Tonsillectomy Additional Past Surgical History / Comment(s): TRKR, bilat rotator cuff surgery, Past Anesthesia/Blood Transfusion Reactions: Previous Problems w/ Anesthesia Additional Past Anesthesia/Blood Transfusion Reaction / Comm: difficult to wake up Date of Last Stent Placement:: 2007 Smoking Status: Former smoker - Past Family History Father Family Medical History: Cancer Additional Family Medical History / Comment(s): lung CA Mother Family Medical History: AICD/Pacemaker Medications and Allergies Home Medications Medication Instructions Recorded Confirmed Type Donepezil [Aricept] 5 mg PO HS 01/20/20 01/20/20 History Metoprolol Tartrate 25 mg PO DAILY 01/20/20 01/20/20 History Omeprazole 20 mg PO BID 01/20/20 01/20/20 History Oxybutynin Chloride [Ditropan] 5 mg PO BID 01/20/20 01/20/20 History Pravastatin Sodium [Pravachol] 40 mg PO HS 01/20/20 01/20/20 History Rivaroxaban [Xarelto] 20 mg PO HS 01/20/20 01/20/20 History Sertraline [Zoloft] 50 mg PO DAILY 01/20/20 01/20/20 History Tamsulosin [Flomax] 0.4 mg PO DAILY 01/20/20 01/20/20 History glipiZIDE [Glucotrol XL] 10 mg PO BID 01/20/20 01/20/20 History metFORMIN HCL 1,000 mg PO DAILY 01/20/20 01/20/20 History Allergies Allergy/AdvReac Type Severity Reaction Status Date / Time No Known Allergies Allergy Verified 01/20/20 18:06 Surgical - Exam Vital Signs Temp Pulse Resp BP Pulse Ox 97.4 F L 90 17 135/72 89 L 01/20/20 17:13 01/20/20 17:13 01/20/20 17:13 01/20/20 17:13 01/20/20 17:13 Results - Labs 01/21/20 11:08 01/22/20 06:46 Abnormal Lab Results - Last 24 Hours (Table) 01/20/20 01/20/20 01/20/20 Range/Units 17:58 17:58 17:58 WBC 13.1 H (3.8-10.6) k/uL RBC 3.71 L (4.30-5.90) m/uL Hgb 7.9 L (13.0-17.5) gm/dL Hct 28.0 L (39.0-53.0) % MCV 75.3 L (80.0-100.0) fL MCH 21.2 L (25.0-35.0) pg MCHC 28.2 L (31.0-37.0) g/dL RDW 17.7 H (11.5-15.5) % Neutrophils # 11.6 H (1.3-7.7) k/uL Lymphocytes # 0.7 L (1.0-4.8) k/uL Creatinine 1.31 H (0.66-1.25) mg/dL Glucose 232 H (74-99) mg/dL POC Glucose (mg/dL) (75-99) mg/dL Troponin I 0.088 H* (0.000-0.034) ng/mL Urine Glucose (UA) (Negative) 01/20/20 01/20/20 01/20/20 Range/Units 19:50 20:30 23:40 WBC (3.8-10.6) k/uL RBC (4.30-5.90) m/uL Hgb (13.0-17.5) gm/dL Hct (39.0-53.0) % MCV (80.0-100.0) fL MCH (25.0-35.0) pg MCHC (31.0-37.0) g/dL RDW (11.5-15.5) % Neutrophils # (1.3-7.7) k/uL Lymphocytes # (1.0-4.8) k/uL Creatinine (0.66-1.25) mg/dL Glucose (74-99) mg/dL POC Glucose (mg/dL) 256 H (75-99) mg/dL Troponin I 0.121 H* (0.000-0.034) ng/mL Urine Glucose (UA) 1+ H (Negative) 01/21/20 01/21/20 01/21/20 Range/Units 03:46 06:04 06:09 WBC (3.8-10.6) k/uL RBC (4.30-5.90) m/uL Hgb (13.0-17.5) gm/dL Hct (39.0-53.0) % MCV (80.0-100.0) fL MCH (25.0-35.0) pg MCHC (31.0-37.0) g/dL RDW (11.5-15.5) % Neutrophils # (1.3-7.7) k/uL Lymphocytes # (1.0-4.8) k/uL Creatinine (0.66-1.25) mg/dL Glucose (74-99) mg/dL POC Glucose (mg/dL) 367 H 392 H (75-99) mg/dL Troponin I 0.147 H* (0.000-0.034) ng/mL Urine Glucose (UA) (Negative) Diabetes panel 01/20/20 Range/Units 17:58 Sodium 137 (137-145) mmol/L Potassium 5.1 (3.5-5.1) mmol/L Chloride 104 (98-107) mmol/L Carbon Dioxide 23 (22-30) mmol/L BUN 20 (9-20) mg/dL Creatinine 1.31 H (0.66-1.25) mg/dL Glucose 232 H (74-99) mg/dL Calcium 8.4 (8.4-10.2) mg/dL AST 23 (17-59) U/L ALT 14 (4-49) U/L Alkaline Phosphatase 65 (38-126) U/L Total Protein 6.9 (6.3-8.2) g/dL Albumin 4.0 (3.5-5.0) g/dL Calcium panel 01/20/20 Range/Units 17:58 Calcium 8.4 (8.4-10.2) mg/dL Phosphorus 4.2 (2.5-4.5) mg/dL Albumin 4.0 (3.5-5.0) g/dL Pituitary panel 01/20/20 Range/Units 17:58 Sodium 137 (137-145) mmol/L Potassium 5.1 (3.5-5.1) mmol/L Chloride 104 (98-107) mmol/L Carbon Dioxide 23 (22-30) mmol/L BUN 20 (9-20) mg/dL Creatinine 1.31 H (0.66-1.25) mg/dL Glucose 232 H (74-99) mg/dL Calcium 8.4 (8.4-10.2) mg/dL Adrenal panel 01/20/20 Range/Units 17:58 Sodium 137 (137-145) mmol/L Potassium 5.1 (3.5-5.1) mmol/L Chloride 104 (98-107) mmol/L Carbon Dioxide 23 (22-30) mmol/L BUN 20 (9-20) mg/dL Creatinine 1.31 H (0.66-1.25) mg/dL Glucose 232 H (74-99) mg/dL Calcium 8.4 (8.4-10.2) mg/dL Total Bilirubin 0.3 (0.2-1.3) mg/dL AST 23 (17-59) U/L ALT 14 (4-49) U/L Alkaline Phosphatase 65 (38-126) U/L Total Protein 6.9 (6.3-8.2) g/dL Albumin 4.0 (3.5-5.0) g/dL
[2020-01-21] MEDS: ASPIRIN 81 MG PO SCH (12:30)
--- NOTE | 2020-01-21 12:56 | P.PN ---
Subjective Progress Note Date: 01/21/20 A very pleasant 62-year-old male patient with known history of dementia and addition to coronary artery disease with previous bypass surgery and previous stroke with left-sided weakness and diabetes mellitus and previous history of pulmonary embolism that occurred 2 years ago has limited on Xarelto on ou tpatient basis. The patient had a bout of fall yesterday. Apparently tried to go to the bathroom at around 5 AM and he was found on the floor. There is no reported loss of consciousness. He apparently tripped and fell and he landed on his right chest. he went into [facility] with a CAT scan of the chest was done. This was done with contrast. It reported a questionable right lower lobe pulmonary embolism. As background emphysema. In addition to that the patient had fractures extending from the fifth 2 the 10th rib. The chest x-ray showing increased pulmonary vascular congestion/edema. He is known to have CAD and CHF. No major edema lower extremities. Currently is on 3 L about 2 by nasal cannula. He is a bit confused. Is a poor historian. Most of the information obtained is from the . No hematoma across his right chest. No bleeding. Hemoglobin currently is at 7.9. Creatinine is at 1.3. Glucose at 232. Electrodes are within normal limits. White cell count at 13.1. The patient was started on IV Lasix. In regards to pain control, the patient is receiving Dilaudid 0.5 mg every 6 hours. Over the past 1 year, the patient had another episode of fall that left no injuries to his body. Of the Brain That Was Done and [facility] Showed No Acute Intracranial Hemorrhage and There Is No Acute Abnormalities. There Is a Old Stroke Involving the Right Insular White Matter. On today's evaluation of the 2019, the patient is reporting that he is not having any significant pain along his right chest. He is on oxygen at 6 L per minute nasal cannula. He is using incentive spirometer and is pulling approximately 1500 mL. He is back on his Xarelto. No signs of any bleeding. A repeat chest x-ray was done today and it showed CHF which is gradually improving as the patient is being diuresed. The patient has signs of previous sternotomy in place. No other complaints otherwise for now. The labs from today shows a hemoglobin of 7.6. Creatinine is up to 1.8. Troponins are positive with levels of 0.1, 0.1 and 0.08 respectively 3 and cardiology is on consult. The patient remains on Lasix and he was taken off the IV Lasix and was switched to 20 mg of Lasix orally. He is in a negative fluid balance of 1.7 L and pulse ox is 92% 60 Suboxone by nasal cannula. Objective - Vital Signs Vital signs: Vital Signs Temp 97.6 F 01/21/20 08:10 Pulse 90 01/21/20 11:50 Resp 18 01/21/20 11:15 BP 114/69 01/21/20 11:15 Pulse Ox 92 L 01/21/20 11:15 Intake & Output 01/20/20 01/21/20 01/21/20 18:59 06:59 18:59 Intake Total 240 480 Output Total 2024 Balance -1784 480 Weight 89 kg 88 kg Intake: Oral 240 480 Output: Urine 2024 Other: Voiding Method Indwelling Catheter Indwelling Catheter - Exam Gen. appearance, comfortable currently on 6 L of oxygen by nasal cannula. No significant respiratory distress at this point in time. He is a poor historian. Unable to volunteer detailed history. Head exam was generally normal. There was no scleral icterus or corneal arcus. Mucous membranes were moist. Neck was supple and without jugular venous distension, thyromegaly, or carotid bruits. Carotids were easily palpable bilaterally. There was no adenopathy. Lungs sounds are diminished and there are crackles in the mid and lower lung tsai bilaterally. There is also soreness across his right lateral chest area. This is sore to palpation. No hematoma. No major deformities. Cardiac exam revealed the PMI to be normally situated and sized. The rhythm was regular and no extrasystoles were noted during several minutes of auscultation. The first and second heart sounds were normal and physiologic splitting of the second heart sound was noted. There were no murmurs, rubs, clicks, or gallops. There is a thoracotomy scar over the anterior chest area which is dry clean and intact. Final abdomen Abdominal exam revealed normal bowel sounds. The abdomen was soft, non-tender, and without masses, organomegaly, or appreciable enlargement of the Examination of the extremities revealed easily palpable radial, femoral and pedal pulses. There was no cyanosis, clubbing or edema. Examination of the skin revealed no evidence of significant rashes, suspicious appearing nevi or other concerning lesions. Neurologically the patient has some limited impairment including memory. Is moving all 4 extremities without any limitation. Pupils are equal and reactive to light. He has some left-sided weakness. This is related to a previous CVA. - Labs CBC & Chem 7: 01/21/20 11:08 01/21/20 11:08 Labs: Abnormal Lab Results - Last 24 Hours (Table) 01/20/20 01/20/20 01/20/20 Range/Units 17:58 17:58 17:58 WBC 13.1 H (3.8-10.6) k/uL RBC 3.71 L (4.30-5.90) m/uL Hgb 7.9 L (13.0-17.5) gm/dL Hct 28.0 L (39.0-53.0) % MCV 75.3 L (80.0-100.0) fL MCH 21.2 L (25.0-35.0) pg MCHC 28.2 L (31.0-37.0) g/dL RDW 17.7 H (11.5-15.5) % Neutrophils # 11.6 H (1.3-7.7) k/uL Lymphocytes # 0.7 L (1.0-4.8) k/uL Sodium (137-145) mmol/L BUN (9-20) mg/dL Creatinine 1.31 H (0.66-1.25) mg/dL Glucose 232 H (74-99) mg/dL POC Glucose (mg/dL) (75-99) mg/dL Troponin I 0.088 H* (0.000-0.034) ng/mL Urine Glucose (UA) (Negative) 01/20/20 01/20/20 01/20/20 Range/Units 19:50 20:30 23:40 WBC (3.8-10.6) k/uL RBC (4.30-5.90) m/uL Hgb (13.0-17.5) gm/dL Hct (39.0-53.0) % MCV (80.0-100.0) fL MCH (25.0-35.0) pg MCHC (31.0-37.0) g/dL RDW (11.5-15.5) % Neutrophils # (1.3-7.7) k/uL Lymphocytes # (1.0-4.8) k/uL Sodium (137-145) mmol/L BUN (9-20) mg/dL Creatinine (0.66-1.25) mg/dL Glucose (74-99) mg/dL POC Glucose (mg/dL) 256 H (75-99) mg/dL Troponin I 0.121 H* (0.000-0.034) ng/mL Urine Glucose (UA) 1+ H (Negative) 01/21/20 01/21/20 01/21/20 Range/Units 03:46 06:04 06:09 WBC (3.8-10.6) k/uL RBC (4.30-5.90) m/uL Hgb (13.0-17.5) gm/dL Hct (39.0-53.0) % MCV (80.0-100.0) fL MCH (25.0-35.0) pg MCHC (31.0-37.0) g/dL RDW (11.5-15.5) % Neutrophils # (1.3-7.7) k/uL Lymphocytes # (1.0-4.8) k/uL Sodium (137-145) mmol/L BUN (9-20) mg/dL Creatinine (0.66-1.25) mg/dL Glucose (74-99) mg/dL POC Glucose (mg/dL) 367 H 392 H (75-99) mg/dL Troponin I 0.147 H* (0.000-0.034) ng/mL Urine Glucose (UA) (Negative) 01/21/20 01/21/20 01/21/20 Range/Units 11:08 11:08 11:38 WBC 12.7 H (3.8-10.6) k/uL RBC 3.61 L (4.30-5.90) m/uL Hgb 7.6 L (13.0-17.5) gm/dL Hct 27.5 L (39.0-53.0) % MCV 76.2 L (80.0-100.0) fL MCH 21.1 L (25.0-35.0) pg MCHC 27.7 L (31.0-37.0) g/dL RDW 17.7 H (11.5-15.5) % Neutrophils # 11.7 H (1.3-7.7) k/uL Lymphocytes # 0.3 L (1.0-4.8) k/uL Sodium 134 L (137-145) mmol/L BUN 27 H (9-20) mg/dL Creatinine 1.88 H (0.66-1.25) mg/dL Glucose 470 H (74-99) mg/dL POC Glucose (mg/dL) 508 H (75-99) mg/dL Troponin I (0.000-0.034) ng/mL Urine Glucose (UA) (Negative) Assessment and Plan Plan: 1 fall with traumatic right-sided fractures 5 through 10, pain is under better control 2 skeletal chest wall pain involving the right lung/chest wall, pain is under better control 3 acute hypoxic respiratory failure currently on 6 L of oxygen by nasal cannula. This is related to poor inspiratory effort secondary to pain in addition to a component of CHF/pulmonary edema. The patient has background COPD P I doubt pulmonary embolism is contributing to this as the patient was receiving anticoagulation with Xarelto on outpatient basis. 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 Further monitored 13 history of falls 14 hypertension 15 acute kidney injury with a creatinine being up to 1.8 and the patient was taken off the IV diuretics and the patient is currently on oral Lasix. 15 impaired performance and functional status secondary to above-mentioned comorbidities Plan Pain control with Dilaudid, patient was improved Provide the patient incentive spirometer, pulling approximately 1500 Repeat chest x-ray in a.m. Obtain echocardiogram to assess LV function, awaiting results Lasix 20 mg by mouth twice a day Wean off FiO2 as tolerated to maintain a saturation above 90% Inserted Martines catheter Watch for signs of delirium Monitor hemoglobin continue Xarelto This continued IV Solu-Medrol CODE STATUS is DNR/DNI Will follow
[2020-01-21] MEDS: FUROSEMIDE 20 MG TAB PO SCH (15:57)
--- NOTE | 2020-01-21 16:41 | P.PN ---
Subjective Progress Note Date: 01/21/20 Principal diagnosis: This is an 84-year-old male who was recently admitted for recent fall with multiple right-sided rib fractures with some right-sided chest pain and is being closely monitored. Patient was a direct admit from [facility] with suspected small pulmonary embolism on the right side. Cardiology along with surgery and pulmonary are following. Patient's mentation is improved as he was confused initially yesterday. Patient continues to have some mild generalized pain and discomfort in the rib area. Anticoagulation of Xarelto has been resumed. Patient's repeat chest x-ray today shows CHF and is currently maintained on oral diuresis. Patient underwent an echo which is currently pending at this time. Patient remains on bronchodilators along with IV antibiotics in the form of ceftriaxone and will continue at this time. No reports of chest pain or palpitations. Shortness of breath slightly improved. Patient is afebrile. No reports of nausea or vomiting and patient is tolerating diet. Objective - Vital Signs Vital signs: Vital Signs Temp 97.6 F 01/21/20 08:10 Pulse 86 01/21/20 15:33 Resp 16 01/21/20 14:20 BP 116/53 01/21/20 14:20 Pulse Ox 96 01/21/20 14:20 Intake & Output 01/20/20 01/21/20 01/21/20 18:59 06:59 18:59 Intake Total 240 720 Output Total 2024 650 Balance -178 70 Weight 89 kg 88 kg Intake: Oral 240 720 Output: Urine 2024 650 Other: Voiding Method Indwelling Catheter Indwelling Catheter - Exam Gen: This is a 84-year-old male sitting up in the chair awake, alert and oriented 2, well-developed, well-nourished. Temp is 97.6F, pulse is 96, resp irations are 16, blood pressure is 132/80, oxygen saturation is 96% on 10 L high flow this morning and currently down to 5 L high flow with continuous weaning. HEENT: Head is atraumatic, normocephalic. Pupils equal, round. Sclerae is anicteric. NECK: Supple. No JVD. No lymphadenopathy. No thyromegaly. LUNGS: To manage breath sounds at the bases with some scattered rhonchi and crackles noted. No intercostal retractions. HEART: S1, S2 are muffled ABDOMEN: Soft. Bowel sounds are present. No masses. No tenderness. EXTREMITIES: No pedal edema. No calf tenderness. NEUROLOGICAL: Patient is awake, alert and oriented x2-3. Diffuse weakness noted - Labs CBC & Chem 7: 01/21/20 11:08 01/21/20 11:08 Labs: Abnormal Lab Results - Last 24 Hours (Table) 01/20/20 01/20/20 01/20/20 Range/Units 17:58 17:58 17:58 WBC 13.1 H (3.8-10.6) k/uL RBC 3.71 L (4.30-5.90) m/uL Hgb 7.9 L (13.0-17.5) gm/dL Hct 28.0 L (39.0-53.0) % MCV 75.3 L (80.0-100.0) fL MCH 21.2 L (25.0-35.0) pg MCHC 28.2 L (31.0-37.0) g/dL RDW 17.7 H (11.5-15.5) % Neutrophils # 11.6 H (1.3-7.7) k/uL Lymphocytes # 0.7 L (1.0-4.8) k/uL Sodium (137-145) mmol/L BUN (9-20) mg/dL Creatinine 1.31 H (0.66-1.25) mg/dL Glucose 232 H (74-99) mg/dL POC Glucose (mg/dL) (75-99) mg/dL Troponin I 0.088 H* (0.000-0.034) ng/mL Urine Glucose (UA) (Negative) 01/20/20 01/20/20 01/20/20 Range/Units 19:50 20:30 23:40 WBC (3.8-10.6) k/uL RBC (4.30-5.90) m/uL Hgb (13.0-17.5) gm/dL Hct (39.0-53.0) % MCV (80.0-100.0) fL MCH (25.0-35.0) pg MCHC (31.0-37.0) g/dL RDW (11.5-15.5) % Neutrophils # (1.3-7.7) k/uL Lymphocytes # (1.0-4.8) k/uL Sodium (137-145) mmol/L BUN (9-20) mg/dL Creatinine (0.66-1.25) mg/dL Glucose (74-99) mg/dL POC Glucose (mg/dL) 256 H (75-99) mg/dL Troponin I 0.121 H* (0.000-0.034) ng/mL Urine Glucose (UA) 1+ H (Negative) 01/21/20 01/21/20 01/21/20 Range/Units 03:46 06:04 06:09 WBC (3.8-10.6) k/uL RBC (4.30-5.90) m/uL Hgb (13.0-17.5) gm/dL Hct (39.0-53.0) % MCV (80.0-100.0) fL MCH (25.0-35.0) pg MCHC (31.0-37.0) g/dL RDW (11.5-15.5) % Neutrophils # (1.3-7.7) k/uL Lymphocytes # (1.0-4.8) k/uL Sodium (137-145) mmol/L BUN (9-20) mg/dL Creatinine (0.66-1.25) mg/dL Glucose (74-99) mg/dL POC Glucose (mg/dL) 367 H 392 H (75-99) mg/dL Troponin I 0.147 H* (0.000-0.034) ng/mL Urine Glucose (UA) (Negative) 01/21/20 01/21/20 01/21/20 Range/Units 11:08 11:08 11:38 WBC 12.7 H (3.8-10.6) k/uL RBC 3.61 L (4.30-5.90) m/uL Hgb 7.6 L (13.0-17.5) gm/dL Hct 27.5 L (39.0-53.0) % MCV 76.2 L (80.0-100.0) fL MCH 21.1 L (25.0-35.0) pg MCHC 27.7 L (31.0-37.0) g/dL RDW 17.7 H (11.5-15.5) % Neutrophils # 11.7 H (1.3-7.7) k/uL Lymphocytes # 0.3 L (1.0-4.8) k/uL Sodium 134 L (137-145) mmol/L BUN 27 H (9-20) mg/dL Creatinine 1.88 H (0.66-1.25) mg/dL Glucose 470 H (74-99) mg/dL POC Glucose (mg/dL) 508 H (75-99) mg/dL Troponin I (0.000-0.034) ng/mL Urine Glucose (UA) (Negative) Assessment and Plan Assessment: Fall and severe pain with right lateral eighth and ninth rib fractures Possible congestive heart failure, acute exacerbation ejection fraction unknown Possible chronic obstructive pulmonary disease Possible bronchopneumonia versus aspiration pneumonia Increased WBC Anemia, microcytic, rule out blood loss anemia, etiology undetermined History of nicotine dependence next line diabetes mellitus 2 with hyperglycemia uncontrolled Increased creatinine with acute renal failure with acute tubular necrosis Troponin 0.088, indeterminate. Rule out acute non-ST segment elevation myocardial infarction History of coronary artery disease history of angina Cerebrovascular accident, TIA history of dementia Hyperlipidemia hypertension History of diabetes mellitus type 2 History of memory impairment history of degenerative joint disease history of pulmonary embolism history of prostate disorder History of benign prostatic hypertrophy History of coronary artery disease, CABG with stents History of anxiety, depression no code, no CPR, no vent Gait dysfunction Recommendations and discussion: Recommend to continue current medications, management, and symptomatic treatment. Will continue with IV antibiotics at this time. Lasix transitioned oral Lasix and will continue at this time. Will repeat a.m. labs. Continue to monitor blood sugars closely as they have been elevated. Resumed Xarelto. Will continue to attempt to wean FiO2. Patient currently remains on high flow 5 L via nasal cannula. Patient encouraged to continue using incentive spirometer at least 10 times every hour while awake. PT/OT to evaluate for possible ECF rehab upon discharge. Due to multiple complex medical issues, prognosis is guarded. Further recommendations to follow.
[2020-01-21 16:51] LABS: Glucose,Whole Blood 350 mg/dL (75-99)
[2020-01-21] MEDS ORDERED: RIVAROXABAN 20 MG TAB PO SCH (17:30)
[2020-01-21] MEDS: SODIUM CHLORIDE 0.9% 1,000 ML IV SCH (19:49)
[2020-01-21 20:18] LABS: Glucose,Whole Blood 239 mg/dL (75-99)
[2020-01-21] MEDS: DONEPEZIL 5 MG TAB PO SCH (20:38)
[2020-01-21] MEDS: INSULIN DETEMIR (LEVEMIR) 100 UNIT/ML SYR SQ SCH (20:38)
[2020-01-21] MEDS: ATORVASTATIN 40 MG TAB PO SCH (20:39)
[2020-01-22 06:07] LABS: Glucose,Whole Blood 401 mg/dL (75-99)
[2020-01-22] MEDS: PANTOPRAZOLE 40 MG TABLET PO SCH ×2 (06:15→17:28)
[2020-01-22] MEDS: glipiZIDE 10 MG TAB PO SCH ×2 (06:15→17:28)
[2020-01-22] MEDS: INSULIN ASPART (NovoLOG) 100 UNIT/ML VIAL SQ SCH ×6 (06:19→20:55)
[2020-01-22 08:30] LABS: Calcium 8.7 mg/dL (8.4-10.2); Potassium 5.8 mmol/L (3.5-5.1)
[2020-01-22] MEDS: ASPIRIN 81 MG PO SCH (08:59)
[2020-01-22] MEDS: KETOROLAC 30 MG/ML 1 ML VIAL IVP SCH (08:59)
[2020-01-22] MEDS: FUROSEMIDE 20 MG TAB PO SCH (08:59)
[2020-01-22] MEDS: TAMSULOSIN 0.4 MG CAP.ER.24H PO SCH (09:00)
[2020-01-22] MEDS: OXYBUTYNIN CHLORIDE 5 MG TAB PO SCH ×2 (09:00→20:53)
[2020-01-22] MEDS: METOPROLOL TARTRATE 25 MG TAB PO SCH (09:00)
[2020-01-22] MEDS: SERTRALINE 50 MG TAB PO SCH (09:00)
[2020-01-22] MEDS: IPRATROPIUM-ALBUTEROL 3 ML NEB INHALATION SCH ×4 (09:29→20:03)
[2020-01-22] MEDS: BUDESONIDE 1 MG/2 ML NEBU INHALATION SCH ×2 (09:29→20:03)
[2020-01-22 09:51] LABS: Anisocytosis Slight; HCT 27.8 % (39.0-53.0); HGB 7.8 gm/dL (13.0-17.5); Hypochromasia Marked; MCH 21.4 pg (25.0-35.0); MCV 76.5 fL (80.0-100.0); Mean Platelet Volume 7.8; Microcytosis Slight; Platelet Count 348 k/uL (150-450); RBC 3.63 m/uL (4.30-5.90); RDW 17.9 % (11.5-15.5); WBC 17.9 k/uL (3.8-10.6)
--- NOTE | 2020-01-22 10:22 | P.PN ---
Subjective Progress Note Date: 01/22/20 CHIEF COMPLAINT: Trauma HISTORY OF PRESENT ILLNESS: Patient examined at the bedside. He states he is feeling well today. Denies abdominal pain. Denies nausea or vomiting. Tolerating diet. WBC 17.9. Hemoglobin 7.8. Vital signs stable. He is afebrile. PHYSICAL EXAM: VITAL SIGNS: Reviewed. GENERAL: Well-developed in no acute distress. HEENT: No sclera icterus. Extraocular movements grossly intact. Moist buccal mucosa. Head is atraumatic, normocephalic. ABDOMEN: Soft. Nondistended. Nontender. NEUROLOGIC: Alert and oriented. Cranial nerves II through XII grossly intact. ASSESSMENT: 1. Fall 2. Right-sided rib fractures, 5-10 3. History of PE, maintained on long-term anticoagulation with Xarelto PLAN: -Pulmonary management per Dr. Poe. -Incentive spirometer -Monitor hemoglobin -Medical management per [facility] -No surgical intervention recommended -We will sign off. Please reconsult if needed. Nurse practitioner note has been reviewed by physician. Signing provider agrees with the documented findings, assessment, and plan of care. Objective - Vital Signs Vital signs: Vital Signs Temp 98.2 F 01/22/20 04:00 Pulse 92 01/22/20 09:43 Resp 18 01/22/20 04:00 BP 132/72 01/22/20 04:00 Pulse Ox 95 01/22/20 04:00 Intake & Output 01/21/20 01/22/20 01/22/20 18:59 06:59 18:59 Intake Total 980 210 120 Output Total 650 350 Balance 330 -140 120 Weight 87.5 kg Intake: Oral 980 210 120 Output: Urine 650 350 Other: Voiding Method Indwelling Catheter Indwelling Catheter - Labs CBC & Chem 7: 01/22/20 06:46 01/22/20 06:46 Labs: Abnormal Lab Results - Last 24 Hours (Table) 01/21/20 01/21/20 01/21/20 Range/Units 11:08 11:08 11:38 WBC 12.7 H (3.8-10.6) k/uL RBC 3.61 L (4.30-5.90) m/uL Hgb 7.6 L (13.0-17.5) gm/dL Hct 27.5 L (39.0-53.0) % MCV 76.2 L (80.0-100.0) fL MCH 21.1 L (25.0-35.0) pg MCHC 27.7 L (31.0-37.0) g/dL RDW 17.7 H (11.5-15.5) % Neutrophils # 11.7 H (1.3-7.7) k/uL Lymphocytes # 0.3 L (1.0-4.8) k/uL Sodium 134 L (137-145) mmol/L Potassium (3.5-5.1) mmol/L Chloride (98-107) mmol/L Carbon Dioxide (22-30) mmol/L BUN 27 H (9-20) mg/dL Creatinine 1.88 H (0.66-1.25) mg/dL Glucose 470 H (74-99) mg/dL POC Glucose (mg/dL) 508 H (75-99) mg/dL 01/21/20 01/21/20 01/22/20 Range/Units 16:34 20:17 06:05 WBC (3.8-10.6) k/uL RBC (4.30-5.90) m/uL Hgb (13.0-17.5) gm/dL Hct (39.0-53.0) % MCV (80.0-100.0) fL MCH (25.0-35.0) pg MCHC (31.0-37.0) g/dL RDW (11.5-15.5) % Neutrophils # (1.3-7.7) k/uL Lymphocytes # (1.0-4.8) k/uL Sodium (137-145) mmol/L Potassium (3.5-5.1) mmol/L Chloride (98-107) mmol/L Carbon Dioxide (22-30) mmol/L BUN (9-20) mg/dL Creatinine (0.66-1.25) mg/dL Glucose (74-99) mg/dL POC Glucose (mg/dL) 350 H 239 H 401 H (75-99) mg/dL 01/22/20 01/22/20 Range/Units 06:46 06:46 WBC 17.9 H (3.8-10.6) k/uL RBC 3.63 L (4.30-5.90) m/uL Hgb 7.8 L (13.0-17.5) gm/dL Hct 27.8 L (39.0-53.0) % MCV 76.5 L (80.0-100.0) fL MCH 21.4 L (25.0-35.0) pg MCHC 28.0 L (31.0-37.0) g/dL RDW 17.9 H (11.5-15.5) % Neutrophils # (1.3-7.7) k/uL Lymphocytes # (1.0-4.8) k/uL Sodium 133 L (137-145) mmol/L Potassium 5.8 H (3.5-5.1) mmol/L Chloride 97 L (98-107) mmol/L Carbon Dioxide 15 L (22-30) mmol/L BUN 38 H (9-20) mg/dL Creatinine 2.68 H (0.66-1.25) mg/dL Glucose 338 H (74-99) mg/dL POC Glucose (mg/dL) (75-99) mg/dL
[2020-01-22 12:03] LABS: Glucose,Whole Blood 327 mg/dL (75-99)
[2020-01-22] MEDS: HYDROcodone/APAP 5-325MG 1 EACH TAB PO PRN ×2 (12:32→21:06)
--- NOTE | 2020-01-22 14:16 | P.PN ---
Subjective Progress Note Date: 01/22/20 On 01/22/2020 patient is seen in follow-up on selective care unit. He is resting comfortably in bed, slightly more sleepy on today's exam, he is on 4 L of oxygen with a pulse ox of 95%, his been afebrile, hemodynamically stable, lung sounds reveal crackles at the right base, respirations are nonlabored, his pain is 4 out of 10, seems to be fairly well controlled on current pain medications. Patient is receiving oral [place]'s and the Dilaudid for breakthrough pain, on today's labs patient's creatinine had increased to 2.6, his IV Lasix has been discontinued and will be switched over to oral Lasix at 20 mg daily starting tomorrow. Nephrology been consulted, no nausea vomiting or diarrhea, patient is passing urine without difficulty. Today's labs have been reviewed, with blood cell, 17.9, hemoglobin is 7.8, sodium is 133, potassium is 5.8, chloride is 97, CO2 is 15, B1 is 38 and creatinine is 2.68. Patient is working on incentive spirometer, he is achieving 750-1,000 mL today Objective - Vital Signs Vital signs: Vital Signs Temp 98.2 F 01/22/20 04:00 Pulse 90 01/22/20 13:15 Resp 18 01/22/20 04:00 BP 132/72 01/22/20 04:00 Pulse Ox 95 01/22/20 04:00 Intake & Output 01/21/20 01/22/20 01/22/20 18:59 06:59 18:59 Intake Total 980 210 120 Output Total 650 350 Balance 330 -140 120 Weight 87.5 kg Intake: Oral 980 210 120 Output: Urine 650 350 Other: Voiding Method Indwelling Catheter Indwelling Catheter - Exam GENERAL EXAM: Alert, pleasant, 84-year-old white male, on 4 L of oxygen with a pulse ox of 96% comfortable in no apparent distress. HEAD: Normocephalic/atraumatic. EYES: Normal reaction of pupils, equal size. Conjunctiva pink, sclera white. NOSE: Clear with pink turbinates. THROAT: No erythema or exudates. NECK: No masses, no JVD, no thyroid enlargement, no adenopathy. CHEST: No chest wall deformity. Symmetrical expansion. Chest wall tenderness over right chest related to multiple fractures LUNGS: Equal air entry with right basilar crackles but no wheeze, rhonchi or dullness. CVS: Regular rate and rhythm, normal S1 and S2, no gallops, no murmurs, no rubs ABDOMEN: Soft, nontender. No hepatosplenomegaly, normal bowel sounds, no guarding or rigidity. EXTREMITIES: No clubbing, no edema, no cyanosis, 2+ pulses and upper and lower extremities. MUSCULOSKELETAL: Muscle strength and tone normal. SPINE: No scoliosis or deformity SKIN: No rashes CENTRAL NERVOUS SYSTEM: Alert and oriented -2. No focal deficits, tone is normal in all 4 extremities. PSYCHIATRIC: Alert and oriented -2. Appropriate affect. Intact judgment and insight. - Labs CBC & Chem 7: 01/22/20 06:46 01/22/20 06:46 Labs: Abnormal Lab Results - Last 24 Hours (Table) 01/21/20 01/21/20 01/22/20 Range/Units 16:34 20:17 06:05 WBC (3.8-10.6) k/uL RBC (4.30-5.90) m/uL Hgb (13.0-17.5) gm/dL Hct (39.0-53.0) % MCV (80.0-100.0) fL MCH (25.0-35.0) pg MCHC (31.0-37.0) g/dL RDW (11.5-15.5) % Sodium (137-145) mmol/L Potassium (3.5-5.1) mmol/L Chloride (98-107) mmol/L Carbon Dioxide (22-30) mmol/L BUN (9-20) mg/dL Creatinine (0.66-1.25) mg/dL Glucose (74-99) mg/dL POC Glucose (mg/dL) 350 H 239 H 401 H (75-99) mg/dL 01/22/20 01/22/20 01/22/20 Range/Units 06:46 06:46 11:55 WBC 17.9 H (3.8-10.6) k/uL RBC 3.63 L (4.30-5.90) m/uL Hgb 7.8 L (13.0-17.5) gm/dL Hct 27.8 L (39.0-53.0) % MCV 76.5 L (80.0-100.0) fL MCH 21.4 L (25.0-35.0) pg MCHC 28.0 L (31.0-37.0) g/dL RDW 17.9 H (11.5-15.5) % Sodium 133 L (137-145) mmol/L Potassium 5.8 H (3.5-5.1) mmol/L Chloride 97 L (98-107) mmol/L Carbon Dioxide 15 L (22-30) mmol/L BUN 38 H (9-20) mg/dL Creatinine 2.68 H (0.66-1.25) mg/dL Glucose 338 H (74-99) mg/dL POC Glucose (mg/dL) 327 H (75-99) mg/dL Assessment and Plan Plan: Assessment: 1 fall with traumatic right-sided fractures 5 through 10, pain is under better control 2 skeletal chest wall pain involving the right lung/chest wall, pain is under better control 3 acute hypoxic respiratory failure currently on 6 L of oxygen by nasal cannula. This is related to poor inspiratory effort secondary to pain in addition to a component of CHF/pulmonary edema. The patient has background COPD P I doubt pulmonary embolism is contributing to this as the patient was receiving an ticoagulation with Xarelto on outpatient basis. 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 Further monitored 13 history of falls 14 hypertension 15 acute kidney injury with a creatinine being up to 1.8 and the patient was taken off the IV diuretics and the patient is currently on oral Lasix. On today's labs on 01/22/2020 there has been a further increase in patient's creatinine, and nephrology has been consulted 15 impaired performance and functional status secondary to above-mentioned comorbidities Plan: Maintain pain control, deep breathing and coughing, encourage incentive spirometry use, increase activity as tolerated, FiO2 is down to 4 L, patient has been diuresed, however there is been further increase in patient's creatinine, nephrology has been consulted, no nausea or vomiting. Follow-up chest x-ray in the morning, maintain safety precautions, cardiology is following, diuretics have been adjusted. We'll continue to follow I performed a history & physical examination of the patient and discussed their management with my nurse practitioner, Sherrie Jacobson. I reviewed the nurse practitioner's note and agree with the documented findings and plan of care. Lung sounds are positive for diminished breath sounds at the bases. The findings and the impression was discussed with the patient. I attest to the documentation by the nurse practitioner. Time with Patient: Less than 30
--- NOTE | 2020-01-22 14:42 | P.PN ---
Subjective Progress Note Date: 01/22/20 His pulse 84-year-old gentleman with a history of CAD and prior bypass surgery, hypertension, diabetes, hyperlipidemia, prior PE, prostate enlargement, prior CVA, mild dementia. He was transferred here from [facility]. Apparently he was walking into the bathroom to urinate, he stood in from the toilet and the next thing he recalls waking up on the floor. 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 Computed tomography scan of the chest with contrast showed pulmonary embolism located in the right lower lobe pulmonary artery. Patient is anticoagulated on Xarelto. Echocardiogram done yesterday revealed mildly impaired LV systolic function with an ejection fraction between 45-50%, grade 3 diastolic dysfunction, basal inferolateral hypokinesis, severely dilated LA, mild aortic stenosis, trace MR and trace TR. Upon examination this morning patient is resting comfortably in bed. He denies any complaints of dizziness, lightheadedness, shortness of breath, palpitations, orthopnea, or PND. Complains of rib and abdominal discomfort at the site of injury from fall. Labs this morning show stable hemoglobin, white blood cell count of 17,900, potassium 5.8, BUN up to 38 and creatinine up to 2.68. Objective - Vital Signs Vital signs: Vital Signs Temp 98.2 F 01/22/20 04:00 Pulse 90 01/22/20 13:15 Resp 18 01/22/20 04:00 BP 132/72 01/22/20 04:00 Pulse Ox 95 01/22/20 04:00 Intake & Output 01/21/20 01/22/20 01/22/20 18:59 06:59 18:59 Intake Total 980 210 120 Output Total 650 350 Balance 330 -140 120 Weight 87.5 kg Intake: Oral 980 210 120 Output: Urine 650 350 Other: Voiding Method Indwelling Catheter Indwelling Catheter - Exam PHYSICAL EXAMINATION: HEENT: Head is atraumatic, normocephalic. Pupils equal, round. Neck is supple. There is no elevated jugular venous pressure. HEART EXAMINATION: Heart sounds regular, S1 and S2 with a systolic ejection murmur at the base. CHEST EXAMINATION: Lungs reveal diminished air entry bilaterally. Tenderness noted in the right lateral chest and rib area. ABDOMEN: Soft, nontender. Bowel sounds are heard. No organomegaly noted. EXTREMITIES: 2+ peripheral pulses with no evidence of peripheral edema and no calf tenderness noted. NEUROLOGIC patient is awake, alert and oriented x2. . - Labs CBC & Chem 7: 01/22/20 06:46 01/22/20 06:46 Labs: Abnormal Lab Results - Last 24 Hours (Table) 01/21/20 01/21/20 01/22/20 Range/Units 16:34 20:17 06:05 WBC (3.8-10.6) k/uL RBC (4.30-5.90) m/uL Hgb (13.0-17.5) gm/dL Hct (39.0-53.0) % MCV (80.0-100.0) fL MCH (25.0-35.0) pg MCHC (31.0-37.0) g/dL RDW (11.5-15.5) % Sodium (137-145) mmol/L Potassium (3.5-5.1) mmol/L Chloride (98-107) mmol/L Carbon Dioxide (22-30) mmol/L BUN (9-20) mg/dL Creatinine (0.66-1.25) mg/dL Glucose (74-99) mg/dL POC Glucose (mg/dL) 350 H 239 H 401 H (75-99) mg/dL 01/22/20 01/22/20 01/22/20 Range/Units 06:46 06:46 11:55 WBC 17.9 H (3.8-10.6) k/uL RBC 3.63 L (4.30-5.90) m/uL Hgb 7.8 L (13.0-17.5) gm/dL Hct 27.8 L (39.0-53.0) % MCV 76.5 L (80.0-100.0) fL MCH 21.4 L (25.0-35.0) pg MCHC 28.0 L (31.0-37.0) g/dL RDW 17.9 H (11.5-15.5) % Sodium 133 L (137-145) mmol/L Potassium 5.8 H (3.5-5.1) mmol/L Chloride 97 L (98-107) mmol/L Carbon Dioxide 15 L (22-30) mmol/L BUN 38 H (9-20) mg/dL Creatinine 2.68 H (0.66-1.25) mg/dL Glucose 338 H (74-99) mg/dL POC Glucose (mg/dL) 327 H (75-99) mg/dL Assessment and Plan Assessment: #1 syncope #2 right sided rib fractures #3 acute on chronic respiratory failure with possible component of CHF as well as COPD #4 mildly impaired LV systolic function #5 history of CVA #6 CAD with prior bypass surgery #7 dementia #8 diabetes mellitus #9 pulmonary embolism anticoagulated on the roto- #10 hyperlipidemia #11 hypertension #12 chronic anemia #13 acute kidney injury on chronic renal insufficiency #14 abnormal troponin, could be secondary to abnormal renal function and hypoxia but cannot completely rule out acute coronary syndrome #15 COPD Plan: From cardiology's perspective, we will decrease Xarelto to 15 mg daily and stop aspirin. We will decrease Lasix dose. Continue to follow renal function electrolytes as well as taken output and daily weights. We'll continue to follow the patient provide further recommendations accordingly. BUOY TENDER note has been reviewed, I agree with a documented findings and plan of care. Patient was seen and examined.
[2020-01-22 15:01] LABS: Hemoglobin A1C 7.6 % (4.0-6.0)
[2020-01-22 17:08] LABS: Glucose,Whole Blood 274 mg/dL (75-99)
[2020-01-22] MEDS: RIVAROXABAN 15 MG TAB PO SCH (17:28)
[2020-01-22] MEDS: SODIUM CHLORIDE 0.9% 1,000 ML IV SCH (17:30)
[2020-01-22 20:44] LABS: Glucose,Whole Blood 169 mg/dL (75-99)
[2020-01-22] MEDS: ATORVASTATIN 40 MG TAB PO SCH (20:53)
[2020-01-22] MEDS: SODIUM BICARBONATE TAB 650 MG TAB PO SCH (20:53)
[2020-01-22] MEDS: INSULIN DETEMIR (LEVEMIR) 100 UNIT/ML SYR SQ SCH (21:06)
[2020-01-22] MEDS: DONEPEZIL 5 MG TAB PO SCH (21:06)
--- NOTE | 2020-01-23 01:08 | CONS ---
CONSULTATION REASON FOR CONSULT: Renal failure. HISTORY OF PRESENT ILLNESS: Patient is an 84-year-old male who was admitted to the hospital with a history of fall. He did sustain rib fractures. The patient is maintained on Toradol for his pain and serum creatinine has slowly been increasing from 1.3 on initial admission to 2.68 now. We do not have any other previous labs available for comparison. Potassium was also elevated at 5.8 today. The patient has an indwelling Martines catheter. 24 hour urine output about 1 L. Blood pressure has been around 120-130 mmHg systolic. No recent IV contrast. PAST MEDICAL HISTORY: Significant for coronary artery disease, chest pain, angina, CVA, TIA, dementia, type 2 diabetes, hyperlipidemia, history of [place]. PE. PAST SURGICAL HISTORY: Appendectomy, coronary artery bypass surgery, coronary stent placement, bilateral rotator cuff surgery, total right knee arthroplasty. MEDICATIONS: Medications prior to this admission include Aricept, metoprolol, omeprazole, Ditropan, Pravachol, Xarelto, Zoloft, Flomax, Glucotrol, metformin. ALLERGIES: None. SOCIAL HISTORY: Patient is a former smoker. No history of drug abuse or alcohol abuse. PHYSICAL EXAMINATION: On examination, patient is currently comfortable. He is awake, not in any acute distress. Blood pressure is 132/72, heart rate 85 per minute, he is afebrile. Examination of the heart S1, S2. Examination of the lungs, bilateral breath sounds are heard. Decreased breath sounds at bases. ABDOMEN: Soft, nontender. Examination of lower extremities shows no evidence of significant edema. TWISTER OPERATOR exam is grossly intact. LAB: Show sodium 133, potassium 5.8, chloride 97, CO2 is 15, BUN 38, serum creatinine 2.68, blood sugar was 401. ASSESSMENT: 1. Acute kidney injury secondary to NSAIDs, nonoliguric, currently with indwelling Martines catheter. Previous UA was quite benign with no evidence of hematuria or proteinuria or pyuria. 2. Hyperkalemia associated with acute kidney injury, metabolic acidosis, and NSAIDs. Expect improvement with improvement in acidosis and discontinuation of NSAIDs. We also need to control the blood sugars as blood sugar was 401 earlier. 3. Metabolic acidosis associated with renal failure. Add sodium bicarb. 4. Status post fall and rib fractures. PLAN: Add oral sodium bicarb. May continue with the p.o. Lasix for now. Repeat potassium this evening. Control blood sugars. DC Toradol. Thank you for this consultation. We will continue to follow the patient with you during his hospitalization. MMODL / IJN: [id number] /
[2020-01-23] MEDS: IPRATROPIUM-ALBUTEROL 3 ML NEB INHALATION SCH ×4 (07:22→19:47)
[2020-01-23] MEDS: BUDESONIDE 1 MG/2 ML NEBU INHALATION SCH ×2 (07:22→19:47)
[2020-01-23 08:01] LABS: Glucose,Whole Blood 205 mg/dL (75-99)
[2020-01-23] MEDS: glipiZIDE 10 MG TAB PO SCH ×2 (08:16→18:16)
[2020-01-23] MEDS: FUROSEMIDE 20 MG TAB PO SCH (08:17)
[2020-01-23] MEDS: PANTOPRAZOLE 40 MG TABLET PO SCH ×2 (08:17→18:16)
[2020-01-23] MEDS: OXYBUTYNIN CHLORIDE 5 MG TAB PO SCH ×2 (08:17→21:48)
[2020-01-23] MEDS: METOPROLOL TARTRATE 25 MG TAB PO SCH (08:17)
[2020-01-23] MEDS: SODIUM BICARBONATE TAB 650 MG TAB PO SCH ×2 (08:17→21:47)
[2020-01-23] MEDS: SERTRALINE 50 MG TAB PO SCH (08:17)
[2020-01-23] MEDS: TAMSULOSIN 0.4 MG CAP.ER.24H PO SCH (08:17)
[2020-01-23] MEDS: INSULIN ASPART (NovoLOG) 100 UNIT/ML VIAL SQ SCH ×7 (08:19→22:25)
--- NOTE | 2020-01-23 08:20 | P.PN ---
Subjective Progress Note Date: 01/22/20 Principal diagnosis: This is an 84-year-old male who was recently admitted for recent fall with multiple right-sided rib fractures with some right-sided chest pain and is being closely monitored. Patient was a direct admit from [facility] with suspected small pulmonary embolism on the right side. Cardiology along with surgery and pulmonary are following. Patient's mentation is improved as he was confused initially yesterday. Patient continues to have some mild generalized pain and discomfort in the rib area. Anticoagulation of Xarelto has been resumed. Patient's repeat chest x-ray today shows CHF and is currently maintained on oral diuresis. Patient underwent an echo which is currently pending at this time. Patient remains on bronchodilators along with IV antibiotics in the form of ceftriaxone and will continue at this time. No reports of chest pain or palpitations. Shortness of breath slightly improved. Patient is afebrile. No reports of nausea or vomiting and patient is tolerating diet. 01/22/2020 Patient is seen and evaluated in follow-up today and appears quite lethargic family at the bedside. Patient states he is having an extreme amount of right- sided rib pain and needs continuous encouragement on using incentive spirometer. Cardiology and pulmonary are following. Nephrology was consulted as creatinine is elevated even more so at 2.68 today. Could be a component of ketorolac which will be discontinued. Per patient's family member at the bedside the patient will be going to ECF upon discharge due to weakness for strength and mobility with PT. No reports of palpitations or shortness of breath. Patient remains on O2 but is titrated down to 4 L. No reports of nausea or vomiting and patient is tolerating diet. Will continue to monitor closely. Review of systems: Cardiovascular: Reports right-sided rib and chest pain, no reports palpitations Respiratory: Reports some shortness of breath GI: No reports of nausea, vomiting, or diarrhea : No reports of dysuria or retention, indwelling Martines catheter is placed Constitutional: No reports of fevers, reports generalized fatigue and weakness Active Medications Acetaminophen (Tylenol Tab) 500 mg PO Q6HR PRN PRN Reason: Fever and/ or Pain Hydrocodone Bitart/Acetaminophen ([place] 5-325) 1 each PO Q6HR PRN PRN Reason: Pain Last Admin: 01/22/20 21:06 Dose: 1 each Documented by: Albuterol/Ipratropium (Duoneb 0.5 Mg-3 Mg/3 Ml Soln) 3 ml INHALATION RT-QID [facility] Last Admin: 01/23/20 07:22 Dose: 3 ml Documented by: Albuterol/Ipratropium (Duoneb 0.5 Mg-3 Mg/3 Ml Soln) 3 ml INHALATION RT-QID PRN PRN Reason: Shortness Of Breath Or Wheezing Alprazolam (Xanax) 0.25 mg PO TID PRN PRN Reason: Anxiety Atorvastatin Calcium (Lipitor) 40 mg PO [facility] Last Admin: 01/22/20 20:53 Dose: 40 mg Documented by: Budesonide (Pulmicort) 1 mg INHALATION RT-BID [facility] Last Admin: 01/23/20 07:22 Dose: 1 mg Documented by: Donepezil HCl (Aricept) 5 mg PO [facility] Last Admin: 01/22/20 21:06 Dose: 5 mg Documented by: Furosemide (Lasix) 20 mg PO DAILY [facility] Glipizide (Glucotrol) 10 mg PO BID-W/MEALS [facility] Last Admin: 01/22/20 17:28 Dose: 10 mg Documented by: Hydromorphone HCl (Dilaudid) 0.5 mg IVP Q3HR PRN PRN Reason: Severe Pain Last Admin: 01/21/20 05:36 Dose: 0.5 mg Documented by: Sodium Chloride (Saline 0.9%) 1,000 mls @ 20 mls/hr IV .Q24H [facility] Last Admin: 01/22/20 17:30 Dose: 20 mls/hr Documented by: Ceftriaxone Sodium 1 gm/ (Sodium Chloride) 50 mls @ 100 mls/hr IVPB Q24H [facility] Last Admin: 01/22/20 20:57 Dose: 100 mls/hr Documented by: Insulin Aspart (Novolog) 0 unit SQ ACHS [facility]; Protocol Last Admin: 01/22/20 20:55 Dose: 3 unit Documented by: Insulin Aspart (Novolog) 5 unit SQ AC-TID [facility] Last Admin: 01/22/20 17:29 Dose: 5 unit Documented by: Insulin Detemir (Levemir) 10 unit SQ [facility] Last Admin: 01/22/20 21:06 Dose: 10 unit Documented by: Metoprolol Tartrate (Lopressor) 25 mg PO DAILY [facility] Last Admin: 01/22/20 09:00 Dose: 25 mg Documented by: Naloxone HCl (Narcan) 0.2 mg IV Q2M PRN PRN Reason: Opioid Reversal Oxybutynin Chloride (Ditropan) 5 mg PO BID [facility] Last Admin: 01/22/20 20:53 Dose: 5 mg Documented by: Pantoprazole Sodium (Protonix) 40 mg PO AC-BID [facility] Last Admin: 01/22/20 17:28 Dose: 40 mg Documented by: Rivaroxaban (Xarelto) 15 mg PO W/SUPPER [facility] Last Admin: 01/22/20 17:28 Dose: 15 mg Documented by: Sertraline HCl (Zoloft) 50 mg PO DAILY [facility] Last Admin: 01/22/20 09:00 Dose: 50 mg Documented by: Sodium Bicarbonate (Sodium Bicarbonate Tab) 650 mg PO BID [facility] Last Admin: 01/22/20 20:53 Dose: 650 mg Documented by: Tamsulosin HCl (Flomax) 0.4 mg PO DAILY [facility] Last Admin: 01/22/20 09:00 Dose: 0.4 mg Documented by: Objective - Vital Signs Vital signs: Vital Signs Temp 98.2 F 01/22/20 04:00 Pulse 88 01/22/20 16:45 Resp 18 01/22/20 04:00 BP 132/72 01/22/20 04:00 Pulse Ox 95 01/22/20 04:00 Intake & Output 01/21/20 01/22/20 01/22/20 18:59 06:59 18:59 Intake Total 980 210 360 Output Total 650 350 Balance 330 -140 360 Weight 87.5 kg Intake: Oral 980 210 360 Output: Urine 650 350 Other: Voiding Method Indwelling Catheter Indwelling Catheter # Voids 1 - Exam Gen: This is a 84-year-old male sitting up in the bed awake, alert and oriented 2, well-developed, well-nourished. Temp is 97.4F, pulse is 92, respirations are 18, blood pressure is 118/63, oxygen saturation is 94% on 4 L via nasal cannula HEENT: Head is atraumatic, normocephalic. Pupils equal, round. Sclerae is anicteric. NECK: Supple. No JVD. No lymphadenopathy. No thyromegaly. LUNGS: Diminished breath sounds at the bases with some scattered rhonchi and crackles noted. No intercostal retractions. HEART: S1, S2 are muffled ABDOMEN: Soft. Bowel sounds are present. No masses. No tenderness. EXTREMITIES: No pedal edema. No calf tenderness. NEUROLOGICAL: Patient is awake, alert and oriented x2. Diffuse weakness noted - Labs CBC & Chem 7: 01/22/20 06:46 01/22/20 17:16 Labs: Abnormal Lab Results - Last 24 Hours (Table) 01/21/20 01/22/20 01/22/20 Range/Units 20:17 06:05 06:46 WBC (3.8-10.6) k/uL RBC (4.30-5.90) m/uL Hgb (13.0-17.5) gm/dL Hct (39.0-53.0) % MCV (80.0-100.0) fL MCH (25.0-35.0) pg MCHC (31.0-37.0) g/dL RDW (11.5-15.5) % Sodium (137-145) mmol/L Potassium (3.5-5.1) mmol/L Chloride (98-107) mmol/L Carbon Dioxide (22-30) mmol/L BUN (9-20) mg/dL Creatinine (0.66-1.25) mg/dL Glucose (74-99) mg/dL POC Glucose (mg/dL) 239 H 401 H (75-99) mg/dL Hemoglobin A1c 7.6 H (4.0-6.0) % 01/22/20 01/22/20 01/22/20 Range/Units 06:46 06:46 11:55 WBC 17.9 H (3.8-10.6) k/uL RBC 3.63 L (4.30-5.90) m/uL Hgb 7.8 L (13.0-17.5) gm/dL Hct 27.8 L (39.0-53.0) % MCV 76.5 L (80.0-100.0) fL MCH 21.4 L (25.0-35.0) pg MCHC 28.0 L (31.0-37.0) g/dL RDW 17.9 H (11.5-15.5) % Sodium 133 L (137-145) mmol/L Potassium 5.8 H (3.5-5.1) mmol/L Chloride 97 L (98-107) mmol/L Carbon Dioxide 15 L (22-30) mmol/L BUN 38 H (9-20) mg/dL Creatinine 2.68 H (0.66-1.25) mg/dL Glucose 338 H (74-99) mg/dL POC Glucose (mg/dL) 327 H (75-99) mg/dL Hemoglobin A1c (4.0-6.0) % 01/22/20 Range/Units 17:01 WBC (3.8-10.6) k/uL RBC (4.30-5.90) m/uL Hgb (13.0-17.5) gm/dL Hct (39.0-53.0) % MCV (80.0-100.0) fL MCH (25.0-35.0) pg MCHC (31.0-37.0) g/dL RDW (11.5-15.5) % Sodium (137-145) mmol/L Potassium (3.5-5.1) mmol/L Chloride (98-107) mmol/L Carbon Dioxide (22-30) mmol/L BUN (9-20) mg/dL Creatinine (0.66-1.25) mg/dL Glucose (74-99) mg/dL POC Glucose (mg/dL) 274 H (75-99) mg/dL Hemoglobin A1c (4.0-6.0) % Assessment and Plan Assessment: Fall and severe pain with right lateral eighth and ninth rib fractures Possible congestive heart failure, acute exacerbation ejection fraction unknown Possible chronic obstructive pulmonary disease Possible bronchopneumonia versus aspiration pneumonia Increased WBC Anemia, microcytic, rule out blood loss anemia, etiology undetermined History of nicotine dependence next line diabetes mellitus 2 with hyperglycemia uncontrolled Increased creatinine with acute renal failure with acute tubular necrosis Troponin 0.088, indeterminate. Rule out acute non-ST segment elevation myocardial infarction History of coronary artery disease history of angina Cerebrovascular accident, TIA history of dementia Hyperlipidemia hypertension History of diabetes mellitus type 2 History of memory impairment history of degenerative joint disease history of pulmonary embolism history of prostate disorder History of benign prostatic hypertrophy History of coronary artery disease, CABG with stents History of anxiety, depression no code, no CPR, no vent Gait dysfunction Recommendations and discussion: Recommend to continue current medications, management, and symptomatic treatment. Will continue with IV antibiotics at this time. Will continue with oral Lasix and gentle IV fluids at 20 mL per hour. Will discontinue ketorolac. Nephrology now following. Sodium bicarbonate tablets admitted to the medication regimen. Will repeat a.m. labs. Continue to monitor blood sugars closely as they continue to be elevated. Will continue to attempt to wean FiO2. Patient is currently now down to 4 L via nasal cannula. Patient needs constant encouragement to continue using incentive spirometer at least 10 times every hour while awake. PT/OT to evaluate for possible ECF rehab upon discharge. The plan is for possible [place] once the patient is stabilized. Due to multiple complex medical issues, prognosis is guarded. Further recommendations to follow. Possible discharge in 24-48 hours.
[2020-01-23 10:35] LABS: Calcium 8.3 mg/dL (8.4-10.2); Potassium 4.8 mmol/L (3.5-5.1)
[2020-01-23] MEDS: HYDROmorphone 0.5 MG/0.5 ML SYRINGE IVP PRN (11:15)
[2020-01-23 11:21] LABS: Glucose,Whole Blood 183 mg/dL (75-99)
[2020-01-23 12:17] LABS: Anisocytosis Slight; Basophils % (A) 0 %; Eosinophils # (A) 0.1 k/uL (0-0.7); Eosinophils % (A) 1 %; HCT 24.2 % (39.0-53.0); HGB 7.3 gm/dL (13.0-17.5); Hypochromasia Marked; Lymphocytes # (A) 0.9 k/uL (1.0-4.8); Lymphocytes % (A) 8 %; MCHC 30.2 g/dL (31.0-37.0); MCV 72.8 fL (80.0-100.0); Mean Platelet Volume 8.3; Microcytosis Moderate; Monocytes # (A) 0.7 k/uL (0-1.0); Monocytes % (A) 6 %; Neutrophils # (A) 9.2 k/uL (1.3-7.7); Neutrophils % (A) 82 %; Platelet Count 372 k/uL (150-450); RBC 3.32 m/uL (4.30-5.90); RDW 17.5 % (11.5-15.5); WBC 11.3 k/uL (3.8-10.6)
[2020-01-23 12:43] LABS: Poikilocytosis (M) Present
--- NOTE | 2020-01-23 12:43 | P.PN ---
Subjective Progress Note Date: 01/23/20 The patient is seen today 01/23/2020 in follow-up on the regular medical floor. He is currently resting comfortably in bed. He denies any worsening shortness of breath. Trying to maintain a balance for pain control versus excessive sleepiness. Currently maintaining O2 saturations in the 90's on 3 L/m per nasal cannula. White count 11.3. Hemoglobin 7.3. Sodium 134. Potassium 4.8. Creatinine 2.87. Chest x-ray pending. Remains on ceftriaxone, bronchodilators. Anticoagulated with Xarelto. Objective - Vital Signs Vital signs: Vital Signs Temp 98.3 F 01/23/20 05:21 Pulse 88 01/23/20 11:35 Resp 16 01/23/20 05:21 BP 143/87 01/23/20 05:21 Pulse Ox 93 L 01/23/20 07:25 Intake & Output 01/22/20 01/23/20 01/23/20 18:59 06:59 18:59 Intake Total 720 Output Total 650 Balance 720 -650 Intake: Oral 720 Output: Urine 650 Other: Voiding Method Indwelling Catheter Indwelling Catheter # Voids 1 # Bowel Movements 1 - Exam GENERAL EXAM: Alert, pleasant, 84-year-old white male, on 3 L of oxygen with a pulse ox of 93% comfortable in no apparent distress. HEAD: Normocephalic/atraumatic. EYES: Normal reaction of pupils, equal size. Conjunctiva pink, sclera white. NOSE: Clear with pink turbinates. THROAT: No erythema or exudates. NECK: No masses, no JVD, no thyroid enlargement, no adenopathy. CHEST: No chest wall deformity. Symmetrical expansion. Chest wall tenderness over right chest related to multiple fractures LUNGS: Equal air entry with right basilar crackles but no wheeze, rhonchi or dullness. CVS: Regular rate and rhythm, normal S1 and S2, no gallops, no murmurs, no rubs ABDOMEN: Soft, nontender. No hepatosplenomegaly, normal bowel sounds, no guarding or rigidity. EXTREMITIES: No clubbing, no edema, no cyanosis, 2+ pulses and upper and lower extremities. MUSCULOSKELETAL: Muscle strength and tone normal. SPINE: No scoliosis or deformity SKIN: No rashes CENTRAL NERVOUS SYSTEM: Alert and oriented -2. No focal deficits, tone is normal in all 4 extremities. PSYCHIATRIC: Alert and oriented -2. Appropriate affect. Intact judgment and insight. - Labs CBC & Chem 7: 01/23/20 11:20 01/23/20 09:51 Labs: Abnormal Lab Results - Last 24 Hours (Table) 01/22/20 01/22/20 01/22/20 Range/Units 06:46 17:01 20:43 WBC (3.8-10.6) k/uL RBC (4.30-5.90) m/uL Hgb (13.0-17.5) gm/dL Hct (39.0-53.0) % MCV (80.0-100.0) fL MCH (25.0-35.0) pg MCHC (31.0-37.0) g/dL RDW (11.5-15.5) % Sodium (137-145) mmol/L Chloride (98-107) mmol/L BUN (9-20) mg/dL Creatinine (0.66-1.25) mg/dL Glucose (74-99) mg/dL POC Glucose (mg/dL) 274 H 169 H (75-99) mg/dL Hemoglobin A1c 7.6 H (4.0-6.0) % Calcium (8.4-10.2) mg/dL 01/23/20 01/23/20 01/23/20 Range/Units 08:00 09:51 11:18 WBC (3.8-10.6) k/uL RBC (4.30-5.90) m/uL Hgb (13.0-17.5) gm/dL Hct (39.0-53.0) % MCV (80.0-100.0) fL MCH (25.0-35.0) pg MCHC (31.0-37.0) g/dL RDW (11.5-15.5) % Sodium 134 L (137-145) mmol/L Chloride 97 L (98-107) mmol/L BUN 62 H (9-20) mg/dL Creatinine 2.87 H (0.66-1.25) mg/dL Glucose 182 H (74-99) mg/dL POC Glucose (mg/dL) 205 H 183 H (75-99) mg/dL Hemoglobin A1c (4.0-6.0) % Calcium 8.3 L (8.4-10.2) mg/dL 01/23/20 Range/Units 11:20 WBC 11.3 H (3.8-10.6) k/uL RBC 3.32 L (4.30-5.90) m/uL Hgb 7.3 L (13.0-17.5) gm/dL Hct 24.2 L (39.0-53.0) % MCV 72.8 L (80.0-100.0) fL MCH 22.0 L (25.0-35.0) pg MCHC 30.2 L (31.0-37.0) g/dL RDW 17.5 H (11.5-15.5) % Sodium (137-145) mmol/L Chloride (98-107) mmol/L BUN (9-20) mg/dL Creatinine (0.66-1.25) mg/dL Glucose (74-99) mg/dL POC Glucose (mg/dL) (75-99) mg/dL Hemoglobin A1c (4.0-6.0) % Calcium (8.4-10.2) mg/dL Assessment and Plan Assessment: 1 fall with traumatic right-sided fractures 5 through 10, pain is under better control 2 skeletal chest wall pain involving the right lung/chest wall, pain is under better control 3 acute hypoxic respiratory failure currently on 3 L of oxygen by nasal cannula. This is related to poor inspiratory effort secondary to pain in addition to a component of CHF/pulmonary edema. The patient has background COPD P I doubt pulmonary embolism is contributing to this as the patient was receiving anticoagulation with Xarelto on outpatient basis. 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 Further monitored 13 history of falls 14 hypertension 15 acute kidney injury with a creatinine being up to 1.8 and the patient was taken off the IV diuretics and the patient is currently on oral Lasix. On today's labs on 01/22/2020 there has been a further increase in patient's creati nine, and nephrology has been consulted 15 impaired performance and functional status secondary to above-mentioned comorbidities Plan: Seen and evaluated by Dr. Poe Chest x-ray pending Adequate pain control Encouraging incentive spirometer Continue to follow I, the cosigning physician, performed a history & physical examination of the patient. Lungs sounds with crackles in the right base. Maintaining good O2 saturations in the 90s on 3 liters nasal cannula. I discussed the assessment and plan of care with my nurse practitioner, Esme Mata. I attest to the above note as dictated by her.
--- NOTE | 2020-01-23 13:31 | P.PN ---
Subjective This is a pleasant 84-year-old male past medical history significant for coronary artery disease status post bypass grafting, hypertension, diabetes mellitus, dyslipidemia and history of PE in the past, prior CVA and mild dementia. He is seen and examined resting comfortably lying flat in bed in no acute distress. He is complaining of significant pain to the right rib/torso region. He denies precordial chest pain, shortness of breath, dizziness or palpitations. Orthostatic blood pressures this morning reveal supine pressure of 143/87 and standing 95/55 heart rate of 84 afebrile maintaining oxygen saturation on nasal cannula. Laboratory data reviewed, WBC 11.3, hemoglobin 7.3, platelets 372, sodium 134, potassium 4.8, creatinine 2.87. Currently maintained on atorvastatin 40 mg at bedtime, Lasix 20 mg daily, metoprolol 25 mg daily and Xarelto 15 mg daily. Echocardiogram obtained on admission reveals impaired LV systolic function with ejection fraction 45-50%, grade 3 diastolic dysfunction, basal inferolateral hypokinesia, severely dilated left atrium, mild aortic stenosis with a mean gradient of 11 mmHg. Family is at the bedside. GENERAL: Well-appearing, well-nourished and in no acute distress. NECK: Supple without JVD or thyromegaly. LUNGS: Breath sounds clear to auscultation bilaterally. Respiration equal and unlabored. No wheezes, rales or rhonchi. Diminished bilaterally. Ongoing tenderness to the right thoracic region. HEART: Regular rate and rhythm with systolic ejection murmur at the left sternal border, no rubs or gallops. S1 and S2 heard. EXTREMITIES: Normal range of motion, no edema. No clubbing or cyanosis. Peripheral pulses intact. ASSESSMENT Syncope Rib fracture, right Acute kidney injury Coronary artery disease s/p bypass grafting Abnormal troponin Anemia History of PE in the past maintained on long-term anticoagulation Diabetes mellitus Hypertension Dyslipidemia PLAN Continue current medical regimen. Stable from a cardiac perspective on current medical regimen. Follow up in the office with Dr. Mcdowell upon discharge, we will continue to follow as needed. Nurse Practitioner note has been reviewed, I agree with a documented findings and plan of care. Patient was seen and examined. Objective - Vital Signs Vital signs: Vital Signs Temp 98.3 F 01/23/20 05:21 Pulse 88 01/23/20 11:35 Resp 16 01/23/20 05:21 BP 143/87 01/23/20 05:21 Pulse Ox 93 L 01/23/20 07:25 Intake & Output 01/22/20 01/23/20 01/23/20 18:59 06:59 18:59 Intake Total 720 Output Total 650 Balance 720 -650 Intake: Oral 720 Output: Urine 650 Other: Voiding Method Indwelling Catheter Indwelling Catheter # Voids 1 # Bowel Movements 1 - Labs CBC & Chem 7: 01/23/20 11:20 01/23/20 09:51 Labs: Abnormal Lab Results - Last 24 Hours (Table) 01/22/20 01/22/20 01/22/20 Range/Units 06:46 17:01 20:43 WBC (3.8-10.6) k/uL RBC (4.30-5.90) m/uL Hgb (13.0-17.5) gm/dL Hct (39.0-53.0) % MCV (80.0-100.0) fL MCH (25.0-35.0) pg MCHC (31.0-37.0) g/dL RDW (11.5-15.5) % Neutrophils # (1.3-7.7) k/uL Lymphocytes # (1.0-4.8) k/uL Sodium (137-145) mmol/L Chloride (98-107) mmol/L BUN (9-20) mg/dL Creatinine (0.66-1.25) mg/dL Glucose (74-99) mg/dL POC Glucose (mg/dL) 274 H 169 H (75-99) mg/dL Hemoglobin A1c 7.6 H (4.0-6.0) % Calcium (8.4-10.2) mg/dL 01/23/20 01/23/20 01/23/20 Range/Units 08:00 09:51 11:18 WBC (3.8-10.6) k/uL RBC (4.30-5.90) m/uL Hgb (13.0-17.5) gm/dL Hct (39.0-53.0) % MCV (80.0-100.0) fL MCH (25.0-35.0) pg MCHC (31.0-37.0) g/dL RDW (11.5-15.5) % Neutrophils # (1.3-7.7) k/uL Lymphocytes # (1.0-4.8) k/uL Sodium 134 L (137-145) mmol/L Chloride 97 L (98-107) mmol/L BUN 62 H (9-20) mg/dL Creatinine 2.87 H (0.66-1.25) mg/dL Glucose 182 H (74-99) mg/dL POC Glucose (mg/dL) 205 H 183 H (75-99) mg/dL Hemoglobin A1c (4.0-6.0) % Calcium 8.3 L (8.4-10.2) mg/dL 01/23/20 Range/Units 11:20 WBC 11.3 H (3.8-10.6) k/uL RBC 3.32 L (4.30-5.90) m/uL Hgb 7.3 L (13.0-17.5) gm/dL Hct 24.2 L (39.0-53.0) % MCV 72.8 L (80.0-100.0) fL MCH 22.0 L (25.0-35.0) pg MCHC 30.2 L (31.0-37.0) g/dL RDW 17.5 H (11.5-15.5) % Neutrophils # 9.2 H (1.3-7.7) k/uL Lymphocytes # 0.9 L (1.0-4.8) k/uL Sodium (137-145) mmol/L Chloride (98-107) mmol/L BUN (9-20) mg/dL Creatinine (0.66-1.25) mg/dL Glucose (74-99) mg/dL POC Glucose (mg/dL) (75-99) mg/dL Hemoglobin A1c (4.0-6.0) % Calcium (8.4-10.2) mg/dL
--- NOTE | 2020-01-23 14:57 | PN ---
PROGRESS NOTE Patient is seen for followup for acute kidney injury which was associated with use of NSAIDs. Patient was admitted with a fall and hip fractures and was maintained on Toradol. His serum creatinine had gone up to 2.6 from 1.3 on initial admission. Blood pressure had been low, Toradol was discontinued yesterday. Today the creatinine is again up at 2.8. Patient denies any significant complaints. Blood pressure remains on the lower side. I do see a systolic of 95 mmHg. The patient has an indwelling Martiens catheter, 24 hour urine output documented at about 2 L. PHYSICAL EXAMINATION: On examination, blood pressure 95/55, heart rate 87 per minute, he is afebrile. Examination of the heart S1, S2. Examination of the lungs, bilateral breath sounds are heard. Abdomen is soft, nontender. Examination of the lower extremities shows edema 1+ bilaterally. PSYCHOLOGIST MILITARY PERSONNEL exam grossly intact. LABS: Show sodium 134, potassium 4.8, chloride 97, CO2 is 27, BUN 62, creatinine 2.87, hemoglobin 7.3 g/dL. ASSESSMENT: 1. Acute kidney injury associated with hypotension, hypoperfusion and use of NSAIDs. Patient has good urine output, he is off the NSAID. No other nephrotoxic agents on board. Lasix is at a very small dose at 20 mg daily, which we can continue. Repeat labs in a.m. 2. Status post fall with rib fractures, stable currently and improved. 3. Hyperkalemia associated with acute kidney injury, metabolic acidosis and use of NSAIDs, now improved. 4. Chronic kidney disease stage III. Previous creatinine 1.3 on initial admission. Previous labs not available for comparison. PLAN: Check ultrasound of the kidneys. Continue off Toradol. Repeat labs in a.m. Continue to avoid nephrotoxic agents. MMODL / IJN: [id number] /
[2020-01-23] MEDS: HYDROcodone/APAP 5-325MG 1 EACH TAB PO PRN ×2 (15:03→21:48)
--- NOTE | 2020-01-23 15:20 | P.PN ---
Subjective Progress Note Date: 01/23/20 Principal diagnosis: This is an 84-year-old male who was recently admitted for recent fall with multiple right-sided rib fractures with some right-sided chest pain and is being closely monitored. Patient was a direct admit from [facility] with suspected small pulmonary embolism on the right side. Cardiology along with surgery and pulmonary are following. Patient's mentation is improved as he was confused initially yesterday. Patient continues to have some mild generalized pain and discomfort in the rib area. Anticoagulation of Xarelto has been resumed. Patient's repeat chest x-ray today shows CHF and is currently maintained on oral diuresis. Patient underwent an echo which is currently pending at this time. Patient remains on bronchodilators along with IV antibiotics in the form of ceftriaxone and will continue at this time. No reports of chest pain or palpitations. Shortness of breath slightly improved. Patient is afebrile. No reports of nausea or vomiting and patient is tolerating diet. 01/22/2020 Patient is seen and evaluated in follow-up today and appears quite lethargic family at the bedside. Patient states he is having an extreme amount of right- sided rib pain and needs continuous encouragement on using incentive spirometer. Cardiology and pulmonary are following. Nephrology was consulted as creatinine is elevated even more so at 2.68 today. Could be a component of ketorolac which will be discontinued. Per patient's family member at the bedside the patient will be going to ECF upon discharge due to weakness for strength and mobility with PT. No reports of palpitations or shortness of breath. Patient remains on O2 but is titrated down to 4 L. No reports of nausea or vomiting and patient is tolerating diet. Will continue to monitor closely. 01/23/2020 Patient is seen in follow-up today sleeping but arousable. Patient continues to remove his oxygen nasal cannula from his face and continues to be quite hypoxic on room air. Patient needs continued encouragement on incentive spirometer use and states that his right-sided rib pain has slightly improved. Nephrology following. Current creatinine has worsened and is 2.87 today. Will repeat a.m. labs and continue to monitor closely. Currently no reports of chest pain or palpitations. Patient is afebrile. No reports of nausea or vomiting and patient is tolerating diet. Case management and social work following for ECF placement and [facility] once patient is stabilized and discharged. Objective - Vital Signs Vital signs: Vital Signs Temp 98.3 F 01/23/20 05:21 Pulse 88 01/23/20 11:35 Resp 16 01/23/20 05:21 BP 143/87 01/23/20 05:21 Pulse Ox 93 L 01/23/20 07:25 Intake & Output 01/22/20 01/23/20 01/23/20 18:59 06:59 18:59 Intake Total 720 Output Total 650 Balance 720 -650 Intake: Oral 720 Output: Urine 650 Other: Voiding Method Indwelling Catheter Indwelling Catheter Indwelling Catheter # Voids 1 # Bowel Movements 1 - Exam Gen: This is a 84-year-old male sitting up in the bed asleep but arousable,, alert and oriented 2, well-developed, well-nourished. Temp is 98.3 F, pulse is 87, respirations are 16, blood pressure is 95/55 standing and 143/87 lying, o xygen saturation is 96% on 4 L via nasal cannula HEENT: Head is atraumatic, normocephalic. Pupils equal, round. Sclerae is anicteric. NECK: Supple. No JVD. No lymphadenopathy. No thyromegaly. LUNGS: Diminished breath sounds at the bases with some scattered rhonchi and crackles noted. No intercostal retractions. HEART: S1, S2 are muffled ABDOMEN: Soft. Bowel sounds are present. No masses. No tenderness. EXTREMITIES: No pedal edema. No calf tenderness. Mild lower extremity edema noted +1 NEUROLOGICAL: Patient is asleep but arousable, alert and oriented x2. Diffuse weakness noted - Labs CBC & Chem 7: 01/23/20 11:20 01/23/20 09:51 Labs: Abnormal Lab Results - Last 24 Hours (Table) 01/22/20 01/22/20 01/23/20 Range/Units 17:01 20:43 08:00 WBC (3.8-10.6) k/uL RBC (4.30-5.90) m/uL Hgb (13.0-17.5) gm/dL Hct (39.0-53.0) % MCV (80.0-100.0) fL MCH (25.0-35.0) pg MCHC (31.0-37.0) g/dL RDW (11.5-15.5) % Neutrophils # (1.3-7.7) k/uL Lymphocytes # (1.0-4.8) k/uL Sodium (137-145) mmol/L Chloride (98-107) mmol/L BUN (9-20) mg/dL Creatinine (0.66-1.25) mg/dL Glucose (74-99) mg/dL POC Glucose (mg/dL) 274 H 169 H 205 H (75-99) mg/dL Calcium (8.4-10.2) mg/dL 01/23/20 01/23/20 01/23/20 Range/Units 09:51 11:18 11:20 WBC 11.3 H (3.8-10.6) k/uL RBC 3.32 L (4.30-5.90) m/uL Hgb 7.3 L (13.0-17.5) gm/dL Hct 24.2 L (39.0-53.0) % MCV 72.8 L (80.0-100.0) fL MCH 22.0 L (25.0-35.0) pg MCHC 30.2 L (31.0-37.0) g/dL RDW 17.5 H (11.5-15.5) % Neutrophils # 9.2 H (1.3-7.7) k/uL Lymphocytes # 0.9 L (1.0-4.8) k/uL Sodium 134 L (137-145) mmol/L Chloride 97 L (98-107) mmol/L BUN 62 H (9-20) mg/dL Creatinine 2.87 H (0.66-1.25) mg/dL Glucose 182 H (74-99) mg/dL POC Glucose (mg/dL) 183 H (75-99) mg/dL Calcium 8.3 L (8.4-10.2) mg/dL Assessment and Plan Assessment: Fall and severe pain with right lateral eighth and ninth rib fractures Congestive heart failure, acute exacerbation, acute on chronic diastolic dysfunction with an EF between 45 and 50% Possible chronic obstructive pulmonary disease Possible bronchopneumonia versus aspiration pneumonia Increased WBC Anemia, microcytic, rule out blood loss anemia, etiology undetermined History of nicotine dependence diabetes mellitus 2 with hyperglycemia uncontrolled Increased creatinine with acute renal failure with acute tubular necrosis Troponin 0.088, indeterminate. Ruled out acute non-ST segment elevation myocardial infarction History of coronary artery disease history of angina Cerebrovascular accident, TIA history of dementia Hyperlipidemia hypertension History of diabetes mellitus type 2 History of memory impairment history of degenerative joint disease history of pulmonary embolism history of prostate disorder History of benign prostatic hypertrophy History of coronary artery disease, CABG with stents History of anxiety, depression no code, no CPR, no vent Gait dysfunction Recommendations and discussion: Recommend to continue current medications, management, and symptomatic treatment. Will continue with IV antibiotics at this time. Will continue with oral Lasix and gentle IV fluids at 20 mL per hour. Nephrology now following. Will repeat a.m. labs. Continue to monitor blood sugars closely as they continue to be elevated. Insulin Aspart has been added 3 times daily with meals and will continue a sliding scale and long-acting at this time. Will continue to attempt to wean FiO2. Patient is currently now down to 3 L via nasal cannula. Patient needs constant encouragement to continue using incentive spirometer at least 10 times every hour while awake. The plan is for possible [facility] once the patient is stabilized. Due to multiple complex medical issues, prognosis is guarded. Further recommendations to follow. Possible discharge in 24-48 hours.
--- NOTE | 2020-01-23 16:30 | US ---
EXAMINATION TYPE: US kidneys/renal and bladder DATE OF EXAM: 01/23/2020 COMPARISON: CT from outside institution 01/20/2020 CLINICAL HISTORY: rf renal failure. EXAM MEASUREMENTS: Right Kidney: 9.9 x 4.8 x 5.0 cm Left Kidney: 8.5 x 3.6 x 4.2 cm Technically difficult study, patient unable to cooperate with examiner, patient in a lot of pain from multiple rib fractures. Right Kidney: lateral cyst measuring 3.8 x 3.5 x 3.0cm Left Kidney: suboptimal evaluation due to patient position, portions visualized wnl Bladder: not fully distended Kidneys show normal cortical medullary differentiation. No hydronephrosis or pathologic calcification evident bilaterally. IMPRESSION: Right kidney shows what is likely a simple cysts although exam is somewhat limited, left renal cysts are not identified with certainty.
--- NOTE | 2020-01-23 17:25 | XR ---
EXAMINATION TYPE: XR chest 1V portable DATE OF EXAM: 01/23/2020 COMPARISON: 01/21/2020 HISTORY: Shortness of breath FINDINGS: There are bilateral pleural effusions with cardiomegaly and bibasilar infiltrate. There is a diffuse interstitial pattern. Postsurgical change left shoulder. Postoperative changes noted. Elevated bilat eral hemidiaphragms. IMPRESSION: 1. Diffuse pleural-parenchymal disease. Findings appear to be stable given differences in technique. Correlate for CHF versus pneumonia.
[2020-01-23 17:28] LABS: Glucose,Whole Blood 183 mg/dL (75-99)
[2020-01-23] MEDS: RIVAROXABAN 15 MG TAB PO SCH (18:16)
[2020-01-23] MEDS: SODIUM CHLORIDE 0.9% 1,000 ML IV SCH (18:19)
[2020-01-23 20:03] LABS: Glucose,Whole Blood 249 mg/dL (75-99)
[2020-01-23] MEDS: INSULIN DETEMIR (LEVEMIR) 100 UNIT/ML SYR SQ SCH (21:47)
[2020-01-23] MEDS: ATORVASTATIN 40 MG TAB PO SCH (21:47)
[2020-01-23] MEDS: DONEPEZIL 5 MG TAB PO SCH (21:48)
[2020-01-24] MEDS: HYDROmorphone 0.5 MG/0.5 ML SYRINGE IVP PRN ×5 (00:26→23:32)
[2020-01-24 07:24] LABS: Glucose,Whole Blood 257 mg/dL (75-99)
[2020-01-24 07:46] LABS: Anisocytosis Slight; Calcium 8.2 mg/dL (8.4-10.2); HCT 23.6 % (39.0-53.0); Hypochromasia Marked; MCH 21.7 pg (25.0-35.0); MCHC 29.3 g/dL (31.0-37.0); MCV 73.9 fL (80.0-100.0); Mean Platelet Volume 8.1; Microcytosis Moderate; Platelet Count 367 k/uL (150-450); Potassium 5.4 mmol/L (3.5-5.1); RBC 3.19 m/uL (4.30-5.90); RDW 18.3 % (11.5-15.5)
[2020-01-24] MEDS: METOPROLOL TARTRATE 25 MG TAB PO SCH (08:00)
[2020-01-24] MEDS: FUROSEMIDE 20 MG TAB PO SCH (08:01)
[2020-01-24] MEDS: SERTRALINE 50 MG TAB PO SCH (08:01)
[2020-01-24] MEDS: PANTOPRAZOLE 40 MG TABLET PO SCH ×2 (08:01→17:20)
[2020-01-24] MEDS: INSULIN ASPART (NovoLOG) 100 UNIT/ML VIAL SQ SCH ×7 (08:01→21:11)
[2020-01-24] MEDS: glipiZIDE 10 MG TAB PO SCH ×2 (08:01→17:20)
[2020-01-24] MEDS: TAMSULOSIN 0.4 MG CAP.ER.24H PO SCH (08:01)
[2020-01-24 08:02] LABS: HGB 6.9 gm/dL (13.0-17.5)
[2020-01-24] MEDS: OXYBUTYNIN CHLORIDE 5 MG TAB PO SCH ×2 (08:03→20:18)
[2020-01-24] MEDS: SODIUM BICARBONATE TAB 650 MG TAB PO SCH ×2 (08:03→20:18)
[2020-01-24] MEDS: BUDESONIDE 1 MG/2 ML NEBU INHALATION SCH ×2 (08:23→20:34)
[2020-01-24] MEDS: IPRATROPIUM-ALBUTEROL 3 ML NEB INHALATION SCH ×4 (11:45→20:34)
[2020-01-24 11:51] LABS: Glucose,Whole Blood 168 mg/dL (75-99)
[2020-01-24 12:26] LABS: Band Neutrophils % 1 %; Eosinophils # (M) 0.09 k/uL (0-0.7); Lymphocytes # (M) 0.72 k/uL (1.0-4.8); Metamyelocytes # (M) 0.09 k/uL (0); Metamyelocytes % 1 %; Monocytes # (M) 0.99 k/uL (0-1.0); Myelocytes # (M) 0.09 k/uL (0); Myelocytes % 1 %; Neutrophils % (M) 80 %; Nucleated Red Blood Cells 0 /100 WBC (0-0); Total Cells Counted 200
[2020-01-24 12:29] LABS: Poikilocytosis (M) Present
--- NOTE | 2020-01-24 13:44 | P.PN ---
Subjective Progress Note Date: 01/24/20 The patient was seen today 01/24/2020 in follow-up on the regular medical floor. Follow-up chest x-ray shows diffuse pleuroparenchymal disease which is stable compared to previous. Maintaining O2 saturations in the low 90s on 3 L/m per nasal cannula. White count 9.0. Hemoglobin 6.9. Sodium 134. Potassium 5.4. Creatinine 2.77. He is receiving 1 unit of packed red blood cells today. No signs of active bleeding. Remains on ceftriaxone, bronchodilators. Anticoagulated with Xarelto. Objective - Vital Signs Vital signs: Vital Signs Temp 97.6 F 01/24/20 06:22 Pulse 78 01/24/20 11:25 Resp 18 01/24/20 06:22 BP 92/58 01/24/20 06:22 Pulse Ox 90 L 01/24/20 06:22 Intake & Output 01/23/20 01/24/20 01/24/20 18:59 06:59 18:59 Intake Total 400 Output Total 350 500 Balance 50 -500 Intake: Oral 400 Output: Urine 350 500 Other: Voiding Method Indwelling Catheter Indwelling Catheter Indwelling Catheter - Exam GENERAL EXAM: Alert, pleasant, 84-year-old white male, on 3 L of oxygen with a pulse ox of 90% comfortable in no apparent distress. HEAD: Normocephalic/atraumatic. EYES: Normal reaction of pupils, equal size. Conjunctiva pink, sclera white. NOSE: Clear with pink turbinates. THROAT: No erythema or exudates. NECK: No masses, no JVD, no thyroid enlargement, no adenopathy. CHEST: No chest wall deformity. Symmetrical expansion. Chest wall tenderness over right chest related to multiple fractures LUNGS: Equal air entry with right basilar crackles but no wheeze, rhonchi or dullness. CVS: Regular rate and rhythm, normal S1 and S2, no gallops, no murmurs, no rubs ABDOMEN: Soft, nontender. No hepatosplenomegaly, normal bowel sounds, no guarding or rigidity. EXTREMITIES: No clubbing, no edema, no cyanosis, 2+ pulses and upper and lower extremities. MUSCULOSKELETAL: Muscle strength and tone normal. SPINE: No scoliosis or deformity SKIN: No rashes CENTRAL NERVOUS SYSTEM: Alert and oriented -2. No focal deficits, tone is normal in all 4 extremities. PSYCHIATRIC: Alert and oriented -2. Appropriate affect. Intact judgment and insight. - Labs CBC & Chem 7: 01/24/20 06:49 01/24/20 06:49 Labs: Abnormal Lab Results - Last 24 Hours (Table) 01/23/20 01/23/20 01/24/20 Range/Units 17:26 19:43 06:49 RBC 3.19 L (4.30-5.90) m/uL Hgb 6.9 L* (13.0-17.5) gm/dL Hct 23.6 L (39.0-53.0) % MCV 73.9 L (80.0-100.0) fL MCH 21.7 L (25.0-35.0) pg MCHC 29.3 L (31.0-37.0) g/dL RDW 18.3 H (11.5-15.5) % Lymphocytes # (Manual) 0.72 L (1.0-4.8) k/uL Metamyelocytes # (Man) 0.09 H (0) k/uL Myelocytes # (Manual) 0.09 H (0) k/uL Sodium (137-145) mmol/L Potassium (3.5-5.1) mmol/L Carbon Dioxide (22-30) mmol/L BUN (9-20) mg/dL Creatinine (0.66-1.25) mg/dL Glucose (74-99) mg/dL POC Glucose (mg/dL) 183 H 249 H (75-99) mg/dL Calcium (8.4-10.2) mg/dL 01/24/20 01/24/20 01/24/20 Range/Units 06:49 07:18 11:49 RBC (4.30-5.90) m/uL Hgb (13.0-17.5) gm/dL Hct (39.0-53.0) % MCV (80.0-100.0) fL MCH (25.0-35.0) pg MCHC (31.0-37.0) g/dL RDW (11.5-15.5) % Lymphocytes # (Manual) (1.0-4.8) k/uL Metamyelocytes # (Man) (0) k/uL Myelocytes # (Manual) (0) k/uL Sodium 134 L (137-145) mmol/L Potassium 5.4 H (3.5-5.1) mmol/L Carbon Dioxide 21 L (22-30) mmol/L BUN 78 H (9-20) mg/dL Creatinine 2.77 H (0.66-1.25) mg/dL Glucose 223 H (74-99) mg/dL POC Glucose (mg/dL) 257 H 168 H (75-99) mg/dL Calcium 8.2 L (8.4-10.2) mg/dL Assessment and Plan Assessment: 1 fall with traumatic right-sided fractures 5 through 10, pain is under better control 2 skeletal chest wall pain involving the right lung/chest wall, pain is under better control 3 acute hypoxic respiratory failure currently on 3 L of oxygen by nasal cannula. This is related to poor inspiratory effort secondary to pain in addition to a component of CHF/pulmonary edema. The patient has background COPD P I doubt pulmonary embolism is contributing to this as the patient was receiving anticoagulation with Xarelto on outpatient basis. 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 Receiving a unit of packed red blood cells today. 13 history of falls 14 hypertension 15 acute kidney injury with a creatinine being up to 1.8 and the patient was taken off the IV diuretics and the patient is currently on oral Lasix. On today's labs on 01/22/2020 there has been a further increase in patient's creatinine, and nephrology has been consulted 15 impaired performance and functional status secondary to above-mentioned comorbidities Plan: Seen and evaluated by Dr. Poe Chest x-ray reviewed Adequate pain control Encouraging incentive spirometer Continue to follow I, the cosigning physician, performed a history & physical examination of the patient. Lungs sounds with crackles in the right base. Maintaining good O2 saturations in the 90s on 3 liters nasal cannula. I discussed the assessment and plan of care with my nurse practitioner, Esme Mata. I attest to the above note as dictated by her.
--- NOTE | 2020-01-24 16:29 | P.PN ---
Subjective Progress Note Date: 01/24/20 Principal diagnosis: This is an 84-year-old male seen in consultation because of acute kidney injury secondary to Toradol and is postop hip replacement. Vital signs blood pressure is somewhat low 105/62, afebrile His hemoglobin 6.9 bicarb is 21 and creatinine 2.77 with a potassium of 5.4 He claims that he is eating very well no nausea vomiting diarrhea abdominal pain no fever chills cough short of breath. Objective - Vital Signs Vital signs: Vital Signs Temp 97.6 F 01/24/20 15:00 Pulse 74 01/24/20 16:08 Resp 20 01/24/20 15:00 BP 105/62 01/24/20 15:00 Pulse Ox 87 L 01/24/20 15:00 Intake & Output 01/23/20 01/24/20 01/24/20 18:59 06:59 18:59 Intake Total 400 160 Output Total 350 500 300 Balance 50 -500 -140 Intake: IV 160 Sodium Chloride 0.9% 1, 160 000 ml @ 20 mls/hr IV . Q24H PENDING SALE TO [facility] Rx#:[id number] Oral 400 Blood Product 0 Rc Pheresis 2 As3 Unit 0 [id number] Output: Urine 350 500 300 Other: Voiding Method Indwelling Catheter Indwelling Catheter Indwelling Catheter Examination awake alert oriented comfortable HEENT exam no JVP neck is supple no facial asymmetry Lungs are clear to auscultation but he had difficult time sitting up and was less than optimal air entry Heart sounds are unremarkable for any murmur rub gallop Abdomen soft nontender no organomegaly ascites masses Extremity exam was no edema Neurologically awake alert oriented. He is profoundly weak - Labs CBC & Chem 7: 01/24/20 06:49 01/24/20 06:49 Labs: Abnormal Lab Results - Last 24 Hours (Table) 01/23/20 01/23/20 01/24/20 Range/Units 17:26 19:43 06:49 RBC 3.19 L (4.30-5.90) m/uL Hgb 6.9 L* (13.0-17.5) gm/dL Hct 23.6 L (39.0-53.0) % MCV 73.9 L (80.0-100.0) fL MCH 21.7 L (25.0-35.0) pg MCHC 29.3 L (31.0-37.0) g/dL RDW 18.3 H (11.5-15.5) % Lymphocytes # (Manual) 0.72 L (1.0-4.8) k/uL Metamyelocytes # (Man) 0.09 H (0) k/uL Myelocytes # (Manual) 0.09 H (0) k/uL Sodium (137-145) mmol/L Potassium (3.5-5.1) mmol/L Carbon Dioxide (22-30) mmol/L BUN (9-20) mg/dL Creatinine (0.66-1.25) mg/dL Glucose (74-99) mg/dL POC Glucose (mg/dL) 183 H 249 H (75-99) mg/dL Calcium (8.4-10.2) mg/dL Crossmatch 01/24/20 01/24/20 01/24/20 Range/Units 06:49 07:18 10:19 RBC (4.30-5.90) m/uL Hgb (13.0-17.5) gm/dL Hct (39.0-53.0) % MCV (80.0-100.0) fL MCH (25.0-35.0) pg MCHC (31.0-37.0) g/dL RDW (11.5-15.5) % Lymphocytes # (Manual) (1.0-4.8) k/uL Metamyelocytes # (Man) (0) k/uL Myelocytes # (Manual) (0) k/uL Sodium 134 L (137-145) mmol/L Potassium 5.4 H (3.5-5.1) mmol/L Carbon Dioxide 21 L (22-30) mmol/L BUN 78 H (9-20) mg/dL Creatinine 2.77 H (0.66-1.25) mg/dL Glucose 223 H (74-99) mg/dL POC Glucose (mg/dL) 257 H (75-99) mg/dL Calcium 8.2 L (8.4-10.2) mg/dL Crossmatch See Detail 01/24/20 Range/Units 11:49 RBC (4.30-5.90) m/uL Hgb (13.0-17.5) gm/dL Hct (39.0-53.0) % MCV (80.0-100.0) fL MCH (25.0-35.0) pg MCHC (31.0-37.0) g/dL RDW (11.5-15.5) % Lymphocytes # (Manual) (1.0-4.8) k/uL Metamyelocytes # (Man) (0) k/uL Myelocytes # (Manual) (0) k/uL Sodium (137-145) mmol/L Potassium (3.5-5.1) mmol/L Carbon Dioxide (22-30) mmol/L BUN (9-20) mg/dL Creatinine (0.66-1.25) mg/dL Glucose (74-99) mg/dL POC Glucose (mg/dL) 168 H (75-99) mg/dL Calcium (8.4-10.2) mg/dL Crossmatch Assessment and Plan Assessment: Impression 1. Acute kidney injury secondary to nonsteroidal. Creatinine peaked at 2.87 yesterday and is down with to 2.77 today 2. Somewhat low blood pressure watch as it might add to the acute kidney injury. He is on Lasix 40 every 12 started today. Given the low blood pressure he might going to 1 depletion we will watch it close. He is also on metoprolol 25 mg daily. 3. Mild acidosis currently on sodium bicarb, bicarb is up to 21 4. Mild hyperkalemia potassium is 5.4. This is from acute kidney,'s office from transcellular shift as his blood sugar is 223 Recommendation 1. Maintain current medications. 2. Watch for hypotension here patient on medications including metoprolol and Lasix 3. Potassium is expected to improve with Lasix and bicarb 4. Watch labs tomorrow
[2020-01-24] MEDS: SODIUM CHLORIDE 0.9% 1,000 ML IV SCH (16:43)
[2020-01-24] MEDS: PIPERACILLIN-TAZOBACTAM 3.375 GM in SODIUM CHLORIDE 0.9% 100 ML IVPB SCH ×2 (16:43→23:31)
[2020-01-24 17:07] LABS: Glucose,Whole Blood 106 mg/dL (75-99)
[2020-01-24] MEDS: RIVAROXABAN 15 MG TAB PO SCH (17:20)
--- NOTE | 2020-01-24 18:03 | PN ---
PROGRESS NOTE DATE OF SERVICE: 01/24/2020 This 84-year-old gentleman admitted after a fall and multiple medical issues including rib fractures, had severe pain. Patient also had CHF acute exacerbation, as well as COPD also. Today, multiple consultants are following the patient, symptomatic treatment also. Patient also developed renal failure. The kidney function was worse at 2.77 today. Hemoglobin 6..9. A unit of transfusion has been offered, but the patient is refusing it initially. PAST MEDICAL HISTORY: Reviewed. REVIEW OF SYSTEMS: CARDIOVASCULAR system: No angina or palpitations. RESPIRATORY: As mentioned earlier. GASTROINTESTINAL: As mentioned earlier. no dysuria or hematuria. NERVOUS SYSTEM: As mentioned earlier. CURRENT MEDICATIONS: Reviewed and include: 1. Tylenol p.r.n. 2. [place] 5 mg q.6h p.r.n. 3. DuoNeb q.i.d. and p.r.n. 4. Xanax 0.5 t.i.d. 5. Lipitor 40 mg q.h.s. 6. Pulmicort 1 mg b.i.d. 7. Rocephin 1 g daily. 8. Aricept 5 mg q.h.s. 9. Lasix 20 mg p.o. daily. 10.Glucotrol 10 mg p.o. b.i.d. 11.Dilaudid p.r.n. 12.NovoLog scale. 13.Levemir 10 units subcu at bedtime. 14.Lopressor 25 mg p.o. b.i.d. 15.Narcan. 16.Ditropan. 17.Protonix. 18.Xarelto. 19.Zoloft. 20.Flomax. PHYSICAL EXAMINATION: Patient is alert and oriented x3. Pulse is 74. Blood pressure 105/60, respirations 20, temperature 97.6, pulse ox 87 percent on 3 L. HEENT: Conjunctivae normal. NECK: No JVD. CARDIOVASCULAR: S1, S2 muffled. RESPIRATIONS: Breath sounds diminished in the bases. Bilateral scattered rhonchi and crackles. ABDOMEN: Soft, nontender. LEGS are no edema. No swelling. Nervous system: Mild diffuse weakness. LAB STUDIES: WBC 9, hemoglobin 6.9, sodium 130, potassium 5.4. The most recent chest x-ray done yesterday was personally reviewed by me and showed significant lesions including possible CHF acute exacerbation. ASSESSMENT: 1. Fall and severe pain in the right lateral 8th and 9th rib fractures. 2. Congestive heart failure acute exacerbation with acute on chronic diastolic dysfunction, ejection fraction 45 to 50%. 3. Chronic obstructive pulmonary disease acute exacerbation. 4. Anemia possibly acute blood-loss anemia requiring transfusion. 5. Possible bilateral bronchopneumonia or aspiration pneumonia. 6. Increased WBC. 7. Anemia, microcytic. 8. History of nicotine dependence. 9. Diabetes mellitus type 2 with hyperglycemia, uncontrolled. 10.Increased creatinine with acute renal failure with acute tubular necrosis. 11.Troponin 0.088, indeterminate, possible acute qqc-OU-kojqtdl-elevation myocardial infarction. 12.History of coronary artery disease. 13.History of angina. 14.Cerebrovascular accident, transient ischemic attack. 15.History of dementia. 16.Hyperlipidemia. 17.Hypertension. 18.History of diabetes type 2. 19.History of memory impairment. 20.History of degenerative joint disease. 21.History of pulmonary embolism. 22.History of prostate disorder. 23.History of benign prostatic hypertrophy. 24.History of coronary artery disease, coronary artery bypass grafting, stent. 25.History of anxiety, depression. 26.Gait dysfunction. 27.NO CODE, NO CPR, NO VENT. RECOMMENDATIONS AND DISCUSSION: In this 84-year-old gentleman who presented with multiple complex medical issues, we will monitor the patient closely, continue the current medications, management and symptomatic treatment. I would definitely recommend 1 unit of transfusion and as well as followed by Lasix 40 mg IV b.i.d. The patient is on Lasix 20 mg daily. I would increase the dose to Lasix 40 IV b.i.d. Limit the fluid intake. Continue the bronchodilators. Continue with empiric antibiotics. I will change the antibiotics to Zosyn because of the patient's lack of improvement. Otherwise, overall prognosis guarded. Further recommendations to follow. Discussed with the patient. Discussed with the staff. JOHAN / ADOLPHN: [id number] /
--- NOTE | 2020-01-24 19:22 | XR ---
EXAMINATION TYPE: XR chest 1V portable DATE OF EXAM: 01/24/2020 COMPARISON: 01/23/2020 HISTORY: Congestive heart failure and recent fall TECHNIQUE: Single frontal view of the chest is obtained. FINDINGS: There are low lung volumes. Persistent multifocal patchy reticular opacities are seen bila terally, right greater than left. Obscuration of the left hemidiaphragm is redemonstrated. Cardiomedi astinal silhouette is enlarged with post CABG change. Diffuse osseous demineralization. IMPRESSION: Similar-appearing multifocal airspace disease and low lung volumes. Findings could be on the basis of multifocal pneumonia or congestive heart failure with confluent pulmonary edema.
[2020-01-24] MEDS: FUROSEMIDE 10 MG/ML 4 ML VIAL IV SCH (20:18)
[2020-01-24] MEDS: ATORVASTATIN 40 MG TAB PO SCH (20:18)
[2020-01-24] MEDS: DONEPEZIL 5 MG TAB PO SCH (20:18)
[2020-01-24] MEDS: INSULIN DETEMIR (LEVEMIR) 100 UNIT/ML SYR SQ SCH (20:18)
[2020-01-24 20:40] LABS: Glucose,Whole Blood 136 mg/dL (75-99)
[2020-01-25] MEDS: HYDROmorphone 0.5 MG/0.5 ML SYRINGE IVP PRN (05:57)
[2020-01-25 06:38] LABS: Anisocytosis Slight; Basophils % (A) 0 %; Eosinophils # (A) 0.2 k/uL (0-0.7); Eosinophils % (A) 2 %; HCT 26.4 % (39.0-53.0); HGB 7.8 gm/dL (13.0-17.5); Hypochromasia Marked; Lymphocytes # (A) 0.4 k/uL (1.0-4.8); Lymphocytes % (A) 5 %; MCH 22.1 pg (25.0-35.0); MCHC 29.4 g/dL (31.0-37.0); MCV 75.1 fL (80.0-100.0); Mean Platelet Volume 7.8; Microcytosis Moderate; Monocytes # (A) 0.4 k/uL (0-1.0); Monocytes % (A) 5 %; Neutrophils % (A) 86 %; Platelet Count 339 k/uL (150-450); Poikilocytosis Slight; RBC 3.51 m/uL (4.30-5.90); RDW 19.6 % (11.5-15.5); WBC 9.3 k/uL (3.8-10.6)
[2020-01-25 06:47] LABS: Calcium 8.1 mg/dL (8.4-10.2); Potassium 4.6 mmol/L (3.5-5.1)
[2020-01-25 07:13] LABS: Glucose,Whole Blood 221 mg/dL (75-99)
[2020-01-25] MEDS: METOPROLOL TARTRATE 25 MG TAB PO SCH (08:01)
[2020-01-25] MEDS: glipiZIDE 10 MG TAB PO SCH ×2 (08:01→17:17)
[2020-01-25] MEDS: SERTRALINE 50 MG TAB PO SCH (08:01)
[2020-01-25] MEDS: FUROSEMIDE 10 MG/ML 4 ML VIAL IV SCH ×2 (08:01→20:52)
[2020-01-25] MEDS: SODIUM BICARBONATE TAB 650 MG TAB PO SCH (08:01)
[2020-01-25] MEDS: PANTOPRAZOLE 40 MG TABLET PO SCH ×2 (08:01→17:17)
[2020-01-25] MEDS: OXYBUTYNIN CHLORIDE 5 MG TAB PO SCH ×2 (08:01→20:52)
[2020-01-25] MEDS: TAMSULOSIN 0.4 MG CAP.ER.24H PO SCH (08:01)
[2020-01-25] MEDS: PIPERACILLIN-TAZOBACTAM 3.375 GM in SODIUM CHLORIDE 0.9% 100 ML IVPB SCH ×3 (08:02→23:51)
[2020-01-25] MEDS: INSULIN ASPART (NovoLOG) 100 UNIT/ML VIAL SQ SCH ×7 (08:02→21:01)
[2020-01-25] MEDS: IPRATROPIUM-ALBUTEROL 3 ML NEB INHALATION SCH ×4 (08:14→19:26)
[2020-01-25] MEDS: BUDESONIDE 1 MG/2 ML NEBU INHALATION SCH ×2 (08:14→19:26)
--- NOTE | 2020-01-25 12:16 | P.PN ---
Subjective Progress Note Date: 01/25/20 On today's evaluation of 01/25/2020, the pain control is adequate for now. The patient has some limited soreness in the right chest at the site of the trauma. Doing well otherwise. No specific complaints. The patient was started on IV Lasix by nephrology yesterday. Creatinine is improving. Creatinine is down to 2.4 and the patient is producing adequate amount of urine output for now. Martines catheter is in place. No respiratory difficulties for now. He is on oxygen 2 L per minute nasal cannula. He is on long-term and to coagulation with Xarelto. Note that the patient has history of dementia. The patient has coronary artery disease with previous bypass surgery. The patient has some left-sided weakness related to his previous CVA. The patient also has diabetes mellitus and previous history of pulmonary embolism and for that reason we opted to put the patient back on Xarelto. Hemoglobin is stable at 7.6. No other issues for now. The acute kidney injury is being monitored by nephrology. His baseline creatinine is at 1.3. CAT scan of the brain that was done and [facility] showed no acute abnormalities. Objective - Vital Signs Vital signs: Vital Signs Temp 98.0 F 01/25/20 05:14 Pulse 79 01/25/20 11:42 Resp 16 01/25/20 05:14 BP 104/67 01/25/20 05:14 Pulse Ox 91 L 01/25/20 08:04 Intake & Output 01/24/20 01/25/20 01/25/20 18:59 06:59 18:59 Intake Total 470 Output Total 300 2525 Balance 170 -2525 Intake: IV 160 Sodium Chloride 0.9% 1, 160 000 ml @ 20 mls/hr IV . Q24H REPLACED BY [facility] Rx#:[id number] Blood Product 310 Rc Pheresis 2 As3 Unit 310 [id number] Output: Urine 300 2525 Other: Voiding Method Indwelling Catheter Indwelling Catheter Indwelling Catheter - Exam Gen. appearance, comfortable currently on 4 L of oxygen by nasal cannula. No significant respiratory distress at this point in time. He is a poor historian. Unable to volunteer detailed history. He has underlying dementia and he has a poor historian. Head exam was generally normal. There was no scleral icterus or corneal arcus. Mucous membranes were moist. Neck was supple and without jugular venous distension, thyromegaly, or carotid bruits. Carotids were easily palpable bilaterally. There was no adenopathy. Lungs sounds are diminished and there are crackles in the mid and lower lung tsai bilaterally. There is also soreness across his right lateral chest area. This is sore to palpation. No hematoma. No major deformities. Cardiac exam revealed the PMI to be normally situated and sized. The rhythm was regular and no extrasystoles were noted during several minutes of auscultation. The first and second heart sounds were normal and physiologic splitting of the second heart sound was noted. There were no murmurs, rubs, clicks, or gallops. There is a thoracotomy scar over the anterior chest area which is dry clean and intact. Final abdomen Abdominal exam revealed normal bowel sounds. The abdomen was soft, non-tender, and without masses, organomegaly, or appreciable enlargement of the Examination of the extremities revealed easily palpable radial, femoral and p edal pulses. There was no cyanosis, clubbing or edema. Examination of the skin revealed no evidence of significant rashes, suspicious appearing nevi or other concerning lesions. Neurologically the patient has some limited impairment including memory. Is moving all 4 extremities without any limitation. Pupils are equal and reactive to light. He has some left-sided weakness. This is related to a previous CVA. - Labs CBC & Chem 7: 01/25/20 06:03 01/25/20 06:03 Labs: Abnormal Lab Results - Last 24 Hours (Table) 01/24/20 01/24/20 01/24/20 Range/Units 06:49 10:19 17:05 RBC (4.30-5.90) m/uL Hgb (13.0-17.5) gm/dL Hct (39.0-53.0) % MCV (80.0-100.0) fL MCH (25.0-35.0) pg MCHC (31.0-37.0) g/dL RDW (11.5-15.5) % Neutrophils # (1.3-7.7) k/uL Lymphocytes # (1.0-4.8) k/uL Lymphocytes # (Manual) 0.72 L (1.0-4.8) k/uL Metamyelocytes # (Man) 0.09 H (0) k/uL Myelocytes # (Manual) 0.09 H (0) k/uL Sodium (137-145) mmol/L BUN (9-20) mg/dL Creatinine (0.66-1.25) mg/dL Glucose (74-99) mg/dL POC Glucose (mg/dL) 106 H (75-99) mg/dL Calcium (8.4-10.2) mg/dL Crossmatch See Detail 01/24/20 01/25/20 01/25/20 Range/Units 20:37 06:03 06:03 RBC 3.51 L (4.30-5.90) m/uL Hgb 7.8 L (13.0-17.5) gm/dL Hct 26.4 L (39.0-53.0) % MCV 75.1 L (80.0-100.0) fL MCH 22.1 L (25.0-35.0) pg MCHC 29.4 L (31.0-37.0) g/dL RDW 19.6 H (11.5-15.5) % Neutrophils # 8.0 H (1.3-7.7) k/uL Lymphocytes # 0.4 L (1.0-4.8) k/uL Lymphocytes # (Manual) (1.0-4.8) k/uL Metamyelocytes # (Man) (0) k/uL Myelocytes # (Manual) (0) k/uL Sodium 136 L (137-145) mmol/L BUN 74 H (9-20) mg/dL Creatinine 2.40 H (0.66-1.25) mg/dL Glucose 197 H (74-99) mg/dL POC Glucose (mg/dL) 136 H (75-99) mg/dL Calcium 8.1 L (8.4-10.2) mg/dL Crossmatch 01/25/20 Range/Units 07:10 RBC (4.30-5.90) m/uL Hgb (13.0-17.5) gm/dL Hct (39.0-53.0) % MCV (80.0-100.0) fL MCH (25.0-35.0) pg MCHC (31.0-37.0) g/dL RDW (11.5-15.5) % Neutrophils # (1.3-7.7) k/uL Lymphocytes # (1.0-4.8) k/uL Lymphocytes # (Manual) (1.0-4.8) k/uL Metamyelocytes # (Man) (0) k/uL Myelocytes # (Manual) (0) k/uL Sodium (137-145) mmol/L BUN (9-20) mg/dL Creatinine (0.66-1.25) mg/dL Glucose (74-99) mg/dL POC Glucose (mg/dL) 221 H (75-99) mg/dL Calcium (8.4-10.2) mg/dL Crossmatch Assessment and Plan Plan: 1 fall with traumatic right-sided fractures 5 through 10, pain is under better control 2 skeletal chest wall pain involving the right lung/chest wall, pain is under better control 3 acute hypoxic respiratory failure currently on 4 L of oxygen by nasal cannula. The patient is also being diuresed with IV Lasix as the patient's chest x-ray was consistent with CHF/pulmonary edema. Developed an acute kidney injury and the renal function continues to improve and the creatinine is down to 2.4 as the patient is producing good amount of urine output. No significant respiratory distress. 4 previous history of pulmonary embolism around 2 years ago and the patient is demented on long-term articulation with Xarelto 5 coronary artery disease with previous bypass surgery, with troponin leak awaiting cardiology evaluation 6 history of CVA post carotid bypass surgery with some left-sided weakness 7 carotids artery disease 8 dementia 9 diabetes mellitus type 2 10 hyperlipidemia 11 BPH 12 anemia likely of a chronic in nature hemoglobin is at 7.8 13 acute kidney injury with a baseline creatinine of 1.3 which came up to 2.7 and currently is on the decline is down to 2.4 as the patient is producing adequate amount of urine output. Nephritis on the case. The patient on IV Lasix. 15 impaired performance and functional status secondary to above-mentioned comorbidities Plan Pain control is adequate for now Provide the patient incentive spirometer, pulling approximately 1500 Repeat chest x-ray in a.m. Obtain echocardiogram showed an EF of around 45-50% with a mild aortic stenosis. Lasix treatment per nephrology and monitor the renal function Wean off FiO2 as tolerated to maintain a saturation above 90%, currently on 42 x 2 by nasal cannula Keep the Martines catheter in place Watch for signs of delirium Monitor hemoglobin continue Xarelto CODE STATUS is DNR/DNI Will follow
[2020-01-25 12:24] LABS: Glucose,Whole Blood 209 mg/dL (75-99)
[2020-01-25] MEDS: HYDROcodone/APAP 5-325MG 1 EACH TAB PO PRN ×2 (12:44→20:52)
--- NOTE | 2020-01-25 13:31 | P.PN ---
Subjective Progress Note Date: 01/25/20 Principal diagnosis: This is an 84-year-old male seen in consultation because of acute kidney injury secondary to Toradol and is postop hip replacement. He continues to feel anorexic not eating well and says he is in pain. He is otherwise afebrile no fever chills cough shortness of breath nausea vomiting. He is known with coronary artery disease bypass surgery hypertension diabetes, pulmonary embolism. Known with prostate enlargement He also has multiple rib fractures Objective - Vital Signs Vital signs: Vital Signs Temp 98.0 F 01/25/20 05:14 Pulse 79 01/25/20 11:42 Resp 16 01/25/20 05:14 BP 104/67 01/25/20 05:14 Pulse Ox 91 L 01/25/20 08:04 Intake & Output 01/24/20 01/25/20 01/25/20 18:59 06:59 18:59 Intake Total 470 Output Total 300 2525 Balance 170 -2525 Intake: IV 160 Sodium Chloride 0.9% 1, 160 000 ml @ 20 mls/hr IV . Q24H [facility] Rx#:[id number] Blood Product 310 Rc Pheresis 2 As3 Unit 310 [id number] Output: Urine 300 2525 Other: Voiding Method Indwelling Catheter Indwelling Catheter Indwelling Catheter On examination is awake alert oriented comfortable but looks depressed and sad HEENT exam no JVP neck is supple no facial asymmetry Lungs are clear to auscultation good air entry bilaterally Heart sounds are unremarkable for any murmur rub gallop Abdomen soft nontender Extremity exam was no edema Neurologically awake alert oriented. - Labs CBC & Chem 7: 01/25/20 06:03 01/25/20 06:03 Labs: Abnormal Lab Results - Last 24 Hours (Table) 01/24/20 01/24/20 01/24/20 Range/Units 10:19 17:05 20:37 RBC (4.30-5.90) m/uL Hgb (13.0-17.5) gm/dL Hct (39.0-53.0) % MCV (80.0-100.0) fL MCH (25.0-35.0) pg MCHC (31.0-37.0) g/dL RDW (11.5-15.5) % Neutrophils # (1.3-7.7) k/uL Lymphocytes # (1.0-4.8) k/uL Sodium (137-145) mmol/L BUN (9-20) mg/dL Creatinine (0.66-1.25) mg/dL Glucose (74-99) mg/dL POC Glucose (mg/dL) 106 H 136 H (75-99) mg/dL Calcium (8.4-10.2) mg/dL Crossmatch See Detail 01/25/20 01/25/20 01/25/20 Range/Units 06:03 06:03 07:10 RBC 3.51 L (4.30-5.90) m/uL Hgb 7.8 L (13.0-17.5) gm/dL Hct 26.4 L (39.0-53.0) % MCV 75.1 L (80.0-100.0) fL MCH 22.1 L (25.0-35.0) pg MCHC 29.4 L (31.0-37.0) g/dL RDW 19.6 H (11.5-15.5) % Neutrophils # 8.0 H (1.3-7.7) k/uL Lymphocytes # 0.4 L (1.0-4.8) k/uL Sodium 136 L (137-145) mmol/L BUN 74 H (9-20) mg/dL Creatinine 2.40 H (0.66-1.25) mg/dL Glucose 197 H (74-99) mg/dL POC Glucose (mg/dL) 221 H (75-99) mg/dL Calcium 8.1 L (8.4-10.2) mg/dL Crossmatch 01/25/20 Range/Units 12:20 RBC (4.30-5.90) m/uL Hgb (13.0-17.5) gm/dL Hct (39.0-53.0) % MCV (80.0-100.0) fL MCH (25.0-35.0) pg MCHC (31.0-37.0) g/dL RDW (11.5-15.5) % Neutrophils # (1.3-7.7) k/uL Lymphocytes # (1.0-4.8) k/uL Sodium (137-145) mmol/L BUN (9-20) mg/dL Creatinine (0.66-1.25) mg/dL Glucose (74-99) mg/dL POC Glucose (mg/dL) 209 H (75-99) mg/dL Calcium (8.4-10.2) mg/dL Crossmatch Assessment and Plan Assessment: Impression 1. Acute kidney injury secondary to nonsteroidal. Creatinine peaked at 2.87 yesterday and is down to 2.77 and further down to 2.4 today 2. Somewhat low blood pressure watch as it might add to the acute kidney injury. He is on Lasix 40 every 12 started today. Given the low blood pressure he might going to 1 depletion we will watch it close. He is also on metoprolol 25 mg daily. 3. Mild acidosis currently on sodium bicarb, bicarb is up to 26 4. Mild hyperkalemia potassium was 5.4. This is from acute kidney,'s office from transcellular shift as his blood sugar is 223. Currently he is 4.6 Recommendation 1. Maintain current medications. 2. Watch for hypotension here patient on medications including metoprolol and Lasix 3. Potassium is expected to improve with Lasix 4. Will discontinue sodium bicarb 5. Watch labs tomorrow
[2020-01-25 17:03] LABS: Glucose,Whole Blood 143 mg/dL (75-99)
[2020-01-25] MEDS: RIVAROXABAN 15 MG TAB PO SCH (17:17)
[2020-01-25] MEDS: SODIUM CHLORIDE 0.9% 1,000 ML IV SCH (17:18)
--- NOTE | 2020-01-25 18:15 | PN ---
PROGRESS NOTE DATE OF SERVICE: 01/25/2020 This 84-year-old gentleman who was admitted with a fall and severe pain of the right lateral 8th and 9th ribs, also had multiple other medical problems including CHF acute exacerbation, COPD also. The patient also had anemia of undetermined etiology and hemoglobin was 6.9. The patient was willing to take 1 transfusion, hemoglobin 7.8 today. Patient being closely monitored. ECF rehab is considered. Creatinine is slightly better at 2.4 today. PAST MEDICAL HISTORY: Reviewed. REVIEW OF SYSTEMS: Cardiovascular system is as mentioned earlier. Respiratory: As mentioned earlier. GASTROINTESTINAL: As mentioned earlier. no dysuria or hematuria. Nervous system: No numbness or weakness. CURRENT MEDICATIONS: Current medications reviewed and include: 1. Tylenol 500 mg q.6h p.r.n. 2. Irvona 5 mg q.6h. 3. DuoNeb q.i.d. and p.r.n. 4. Xanax 0.5 daily. 5. Lipitor 40 mg q.h.s. 6. Pulmicort 1 mg b.i.d. 7. Aricept. 8. Lasix 40 mg IV b.i.d. 9. Glucotrol 10 mg p.o. b.i.d. 10.Dilaudid p.r.n. 11.NovoLog scale. 12.Levemir 10 units subcu at bedtime. 13.Lopressor 25 mg p.o. 14.Narcan. 15.Ditropan. 16.Protonix 40 mg daily. 17.Zosyn 3.5 IV q.8h. 18.Zoloft. 19.Flomax. PHYSICAL EXAMINATION: The patient is alert and oriented times three. Pulse 75, blood pressure 112/60, respirations 20, temperature 98.9, pulse ox 94% on 3 L. HEENT: Conjunctivae normal. NECK: No JVD. CARDIOVASCULAR: S1, S2 muffled. RESPIRATORY: Breath sounds diminished in the bases. Scattered rhonchi and crackles. ABDOMEN: Soft, nontender. NERVOUS SYSTEM: Diffusely weak. LAB STUDIES: WBC 9.3, hemoglobin 7.8, creatinine is 2.4. The chest x-ray which was done yesterday evening, was personally reviewed by me showed still significant bilateral lesions also. ASSESSMENT: 1. Fall and severe pain of the right lateral 8th and 9th rib with rib fractures. 2. Congestive heart failure acute exacerbation with acute on chronic diastolic dysfunction ejection fraction 45-50%. 3. Chronic obstructive pulmonary disease acute exacerbation with possible bilateral pneumonia with possibly gram-negative bacilli. 4. Anemia, possibly acute blood-loss anemia requiring transfusion. 5. Possible bilateral bronchopneumonia or aspiration pneumonia. 6. Increased WBC. 7. Anemia, microcytic. 8. History of nicotine dependence. 9. Diabetes mellitus type 2 with hyperglycemia uncontrolled. 10.Increased creatinine with acute renal failure with acute tubular necrosis. 11.Troponin 0.088, indeterminate, possible acute xyt-FN-mmxbrep-elevation myocardial infarction. 12.History of coronary artery disease. 13.History of anxiety. 14.History of cerebrovascular accident, transient ischemic attack. 15.History of dementia. 16.History of hyperlipidemia. 17.History of hypertension. 18.History of diabetes type 2. 19.History of memory impairment. 20.History of degenerative joint disease. 21.History of pulmonary embolus. 22.History of prostate disorder. 23.History of benign prostatic hypertrophy. 24.History of coronary artery disease, coronary artery bypass grafting, stent. 25.History of anxiety, depression. 26.Gait dysfunction. 27.NO CODE, NO CPR AND NO VENT. RECOMMENDATIONS AND DISCUSSION: In this 84-year-old gentleman who presented with multiple complex medical issues, we will monitor the patient closely, continue the current medications, management and symptomatic treatment. Continue the antibiotics and bronchodilators. Continue the transition. Repeat labs. Symptomatic treatment. PT/OT evaluation, possible ECF rehab. Guarded prognosis. Further recommendations to follow. MMODL / IJN: [id number] /
[2020-01-25] MEDS: DONEPEZIL 5 MG TAB PO SCH (20:52)
[2020-01-25] MEDS: ATORVASTATIN 40 MG TAB PO SCH (20:52)
[2020-01-25 20:59] LABS: Glucose,Whole Blood 98 mg/dL (75-99)
[2020-01-25] MEDS: INSULIN DETEMIR (LEVEMIR) 100 UNIT/ML SYR SQ SCH (21:03)
[2020-01-25] MEDS: ALPRAZolam 0.25 MG TAB PO PRN (23:57)
[2020-01-26 01:45] LABS: Glucose,Whole Blood 155 mg/dL (75-99)
[2020-01-26] MEDS: HYDROcodone/APAP 5-325MG 1 EACH TAB PO PRN (02:14)
[2020-01-26 07:16] LABS: Glucose,Whole Blood 91 mg/dL (75-99)
[2020-01-26] MEDS: FUROSEMIDE 10 MG/ML 4 ML VIAL IV SCH ×2 (07:30→20:18)
[2020-01-26] MEDS: TAMSULOSIN 0.4 MG CAP.ER.24H PO SCH (07:31)
[2020-01-26] MEDS: METOPROLOL TARTRATE 25 MG TAB PO SCH (07:31)
[2020-01-26] MEDS: SERTRALINE 50 MG TAB PO SCH (07:31)
[2020-01-26] MEDS: PIPERACILLIN-TAZOBACTAM 3.375 GM in SODIUM CHLORIDE 0.9% 100 ML IVPB SCH ×2 (07:31→15:17)
[2020-01-26] MEDS: OXYBUTYNIN CHLORIDE 5 MG TAB PO SCH ×2 (07:31→20:18)
[2020-01-26] MEDS: glipiZIDE 10 MG TAB PO SCH ×2 (07:31→16:21)
[2020-01-26] MEDS: PANTOPRAZOLE 40 MG TABLET PO SCH ×2 (07:31→16:20)
[2020-01-26] MEDS: INSULIN ASPART (NovoLOG) 100 UNIT/ML VIAL SQ SCH ×7 (07:33→22:38)
--- NOTE | 2020-01-26 08:36 | P.PN ---
Subjective Patient is seen in follow-up for acute kidney injury. Labs pending from today. Maintained on IV Lasix. Nonoliguric. Has a Martines catheter. Oral intake is fair. Denies chest pain. Vital signs are stable. General: The patient appeared well nourished and normally developed. HEENT: Head exam is unremarkable. Neck is without jugular venous distension. LUNGS: Breath sounds decreased. Scattered rhonchi. HEART: Rate and Rhythm are regular. First and second heart sounds normal. No murmurs, rubs or gallops. ABDOMEN: Abdominal exam reveals normal bowel sounds. Non-tender and non- distended. No evidence of peritonitis. EXTREMITITES: No clubbing, cyanosis, or edema. Objective - Vital Signs Vital signs: Vital Signs Temp 97.5 F L 01/26/20 06:55 Pulse 77 01/26/20 06:55 Resp 18 01/26/20 06:55 BP 154/67 01/26/20 06:55 Pulse Ox 92 L 01/26/20 06:55 Intake & Output 01/25/20 01/26/20 01/26/20 18:59 06:59 18:59 Intake Total 360 500 Output Total 250 1750 Balance 110 -1250 Weight 84.5 kg Intake: IV 160 Sodium Chloride 0.9% 1, 160 000 ml @ 20 mls/hr IV . Q24H [facility] Rx#:[id number] Intake, IV Titration 200 Amount Piperacillin-Tazobactam 3 200 .375 gm In Sodium Chloride 0.9% 100 ml @ 25 mls/hr IVPB Q8HR [facility] Rx# :[id number] Oral 500 Output: Urine 250 1750 Other: Voiding Method Indwelling Catheter Indwelling Catheter Indwelling Catheter - Labs CBC & Chem 7: 01/25/20 06:03 01/25/20 06:03 Labs: Abnormal Lab Results - Last 24 Hours (Table) 01/25/20 01/25/20 01/26/20 Range/Units 12:20 16:44 01:44 POC Glucose (mg/dL) 209 H 143 H 155 H (75-99) mg/dL Assessment and Plan Plan: Assessment: 1. Acute kidney injury secondary to ATN secondary to nonsteroidals. Also component of cardiorenal syndrome. Creatinine 2.4 as of yesterday. UA benign. No hydronephrosis on kidney ultrasound. 2. Acute on chronic systolic CHF with ejection fraction of 45-50%. 3. Insulin-dependent diabetes mellitus. 4. Volume overload. 5. Chronic kidney disease. Unknown baseline renal function. Plan: Maintain IV Lasix 40 mg twice daily. Repeat chest x-ray. Avoid nephrotoxins. Continue to monitor renal function and urine output.
[2020-01-26] MEDS: BUDESONIDE 1 MG/2 ML NEBU INHALATION SCH ×2 (09:20→20:25)
[2020-01-26] MEDS: IPRATROPIUM-ALBUTEROL 3 ML NEB INHALATION SCH ×4 (09:20→20:25)
[2020-01-26 09:43] LABS: Calcium 8.5 mg/dL (8.4-10.2); Potassium 3.4 mmol/L (3.5-5.1)
[2020-01-26 09:49] LABS: Anisocytosis Slight; HCT 28.3 % (39.0-53.0); HGB 8.2 gm/dL (13.0-17.5); Hypochromasia Marked; MCH 21.9 pg (25.0-35.0); MCHC 29.1 g/dL (31.0-37.0); MCV 75.2 fL (80.0-100.0); Mean Platelet Volume 8.3; Microcytosis Moderate; Platelet Count 415 k/uL (150-450); Poikilocytosis Slight; RBC 3.76 m/uL (4.30-5.90); RDW 19.4 % (11.5-15.5)
[2020-01-26 10:49] LABS: Neutrophils % (M) 83 %; Nucleated Red Blood Cells 2 /100 WBC (0-0); Total Cells Counted 100
[2020-01-26 10:50] LABS: Eosinophils # (M) 0.18 k/uL (0-0.7); Lymphocytes # (M) 0.64 k/uL (1.0-4.8); Monocytes # (M) 0.74 k/uL (0-1.0); Neutrophils # (M) 7.64 k/uL (1.3-7.7); WBC 9.2 k/uL (3.8-10.6)
[2020-01-26 10:51] LABS: Polychromasia Present
[2020-01-26 10:52] LABS: Ovalocytes Present
[2020-01-26] MEDS ORDERED: POTASSIUM CHLORIDE ER 20 MEQ TAB.ER PO STA (10:56)
--- NOTE | 2020-01-26 11:36 | P.PN ---
Subjective Progress Note Date: 01/26/20 The patient was seen today 01/26/2020 in follow-up on the regular medical floor. He is awake and alert in no acute distress. He is afebrile. Maintaining O2 saturations in the 90s on 4 L/m per nasal cannula. white count 9.2. Hemoglobin 8.2. sodium 137. Potassium 3.4. Creatinine 2.07.He remains on IV diuretics. Currently in a negative balance. Objective - Vital Signs Vital signs: Vital Signs Temp 97.5 F L 01/26/20 06:55 Pulse 78 01/26/20 09:32 Resp 18 01/26/20 06:55 BP 154/67 01/26/20 06:55 Pulse Ox 92 L 01/26/20 06:55 Intake & Output 01/25/20 01/26/20 01/26/20 18:59 06:59 18:59 Intake Total 360 500 Output Total 250 1750 Balance 110 -1250 Weight 84.5 kg Intake: IV 160 Sodium Chloride 0.9% 1, 160 000 ml @ 20 mls/hr IV . Q24H [facility] Rx#:[id number] Intake, IV Titration 200 Amount Piperacillin-Tazobactam 3 200 .375 gm In Sodium Chloride 0.9% 100 ml @ 25 mls/hr IVPB Q8HR [facility] Rx# :[id number] Oral 500 Output: Urine 250 1750 Other: Voiding Method Indwelling Catheter Indwelling Catheter Indwelling Catheter # Bowel Movements 0 - Exam GENERAL EXAM: Alert, pleasant, 84-year-old white male, on 4 L of oxygen with a pulse ox of 92% comfortable in no apparent distress. HEAD: Normocephalic/atraumatic. EYES: Normal reaction of pupils, equal size. Conjunctiva pink, sclera white. NOSE: Clear with pink turbinates. THROAT: No erythema or exudates. NECK: No masses, no JVD, no thyroid enlargement, no adenopathy. CHEST: No chest wall deformity. Symmetrical expansion. Chest wall tenderness over right chest related to multiple fractures LUNGS: Equal air entry with right basilar crackles but no wheeze, rhonchi or dullness. CVS: Regular rate and rhythm, normal S1 and S2, no gallops, no murmurs, no rubs ABDOMEN: Soft, nontender. No hepatosplenomegaly, normal bowel sounds, no guarding or rigidity. EXTREMITIES: No clubbing, no edema, no cyanosis, 2+ pulses and upper and lower extremities. MUSCULOSKELETAL: Muscle strength and tone normal. SPINE: No scoliosis or deformity SKIN: No rashes CENTRAL NERVOUS SYSTEM: Alert and oriented -2. No focal deficits, tone is normal in all 4 extremities. PSYCHIATRIC: Alert and oriented -2. Appropriate affect. Intact judgment and insight. - Labs CBC & Chem 7: 01/26/20 08:16 01/26/20 08:16 Labs: Abnormal Lab Results - Last 24 Hours (Table) 01/25/20 01/25/20 01/26/20 Range/Units 12:20 16:44 01:44 RBC (4.30-5.90) m/uL Hgb (13.0-17.5) gm/dL Hct (39.0-53.0) % MCV (80.0-100.0) fL MCH (25.0-35.0) pg MCHC (31.0-37.0) g/dL RDW (11.5-15.5) % Lymphocytes # (Manual) (1.0-4.8) k/uL Nucleated RBCs (0-0) /100 WBC Potassium (3.5-5.1) mmol/L Chloride (98-107) mmol/L Carbon Dioxide (22-30) mmol/L BUN (9-20) mg/dL Creatinine (0.66-1.25) mg/dL POC Glucose (mg/dL) 209 H 143 H 155 H (75-99) mg/dL 01/26/20 01/26/20 Range/Units 08:16 08:16 RBC 3.76 L (4.30-5.90) m/uL Hgb 8.2 L (13.0-17.5) gm/dL Hct 28.3 L (39.0-53.0) % MCV 75.2 L (80.0-100.0) fL MCH 21.9 L (25.0-35.0) pg MCHC 29.1 L (31.0-37.0) g/dL RDW 19.4 H (11.5-15.5) % Lymphocytes # (Manual) 0.64 L (1.0-4.8) k/uL Nucleated RBCs 2 H (0-0) /100 WBC Potassium 3.4 L (3.5-5.1) mmol/L Chloride 95 L (98-107) mmol/L Carbon Dioxide 34 H (22-30) mmol/L BUN 60 H (9-20) mg/dL Creatinine 2.07 H (0.66-1.25) mg/dL POC Glucose (mg/dL) (75-99) mg/dL Assessment and Plan Assessment: 1 fall with traumatic right-sided fractures 5 through 10, pain is under better control 2 skeletal chest wall pain involving the right lung/chest wall, pain is under better control 3 acute hypoxic respiratory failure currently on 4 L of oxygen by nasal cannula. This is related to poor inspiratory effort secondary to pain in addition to a component of CHF/pulmonary edema. The patient has background COPD, doubt pulmonary embolism is contributing to this as the patient was receiving anticoagulation with Xarelto on outpatient basis. 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 received 1 unit of packed red blood cells this admission. 13 history of falls 14 hypertension 15 acute kidney injury with a creatinine being up to 2.07 and the patient is currently on IV diuretics again 15 impaired performance and functional status secondary to above-mentioned comorbidities Plan: Seen and evaluated by Dr. Valencia Follow-up chest x-ray pending Continued on IV diuretics per nephrology Adequate pain control Encouraging incentive spirometer Plan is for subacute rehab in [facility] I, the cosigning physician, performed a history & physical examination of the patient. Lungs sounds with crackles in the right base. Maintaining good O2 saturations in the 90s on 4 liters nasal cannula. I discussed the assessment and plan of care with my nurse practitioner, Esme Mata. I attest to the above note as dictated by her.
[2020-01-26 12:24] LABS: Glucose,Whole Blood 133 mg/dL (75-99)
--- NOTE | 2020-01-26 13:52 | P.PN ---
Subjective Progress Note Date: 01/26/20 Principal diagnosis: This is an 84-year-old male who was recently admitted for recent fall with multiple right-sided rib fractures with some right-sided chest pain and is being closely monitored. Patient was a direct admit from [facility] with suspected small pulmonary embolism on the right side. Cardiology along with surgery and pulmonary are following. Patient's mentation is improved as he was confused initially yesterday. Patient continues to have some mild generalized pain and discomfort in the rib area. Anticoagulation of Xarelto has been resumed. Patient's repeat chest x-ray today shows CHF and is currently maintained on oral diuresis. Patient underwent an echo which is currently pending at this time. Patient remains on bronchodilators along with IV antibiotics in the form of ceftriaxone and will continue at this time. No reports of chest pain or palpitations. Shortness of breath slightly improved. Patient is afebrile. No reports of nausea or vomiting and patient is tolerating diet. 01/22/2020 Patient is seen and evaluated in follow-up today and appears quite lethargic family at the bedside. Patient states he is having an extreme amount of right- sided rib pain and needs continuous encouragement on using incentive spirometer. Cardiology and pulmonary are following. Nephrology was consulted as creatinine is elevated even more so at 2.68 today. Could be a component of ketorolac which will be discontinued. Per patient's family member at the bedside the patient will be going to ECF upon discharge due to weakness for strength and mobility with PT. No reports of palpitations or shortness of breath. Patient remains on O2 but is titrated down to 4 L. No reports of nausea or vomiting and patient is tolerating diet. Will continue to monitor closely. 01/23/2020 Patient is seen in follow-up today sleeping but arousable. Patient continues to remove his oxygen nasal cannula from his face and continues to be quite hypoxic on room air. Patient needs continued encouragement on incentive spirometer use and states that his right-sided rib pain has slightly improved. Nephrology following. Current creatinine has worsened and is 2.87 today. Will repeat a.m. labs and continue to monitor closely. Currently no reports of chest pain or palpitations. Patient is afebrile. No reports of nausea or vomiting and patient is tolerating diet. Case management and social work following for ECF placement and [facility] once patient is stabilized and discharged. 01/26/2020 Patient is seen and evaluated in follow-up today awake and currently remains on O2 via nasal cannula at 4 L. Patient states that his breathing has improved and his right-sided rib pain has lessened. Nephrology is following as patient continues to have elevated creatinine. Creatinine slightly improved today and is currently 2.07. Potassium is 3.4 and will be replaced. Patient remains on IV fluids at 20 ML per hour and will continue at this time. Patient to continue with IV antibiotics in the form of Zosyn along with IV diuretics. Repeat chest x-ray today is pending. Hemoglobin today is 8.2. PT/OT following as patient continues to be quite weak needing assistance with position changes and ambulation. Currently no reports of chest pain, worsening shortness of breath, or palpitations. Patient is afebrile. No reports of nausea or vomiting and patient is tolerating diet. Case management and social work following for placement at [facility] once the patient is stabilized. Will continue to monitor closely. Objective - Vital Signs Vital signs: Vital Signs Temp 97.5 F L 01/26/20 06:55 Pulse 78 01/26/20 09:32 Resp 18 01/26/20 06:55 BP 154/67 01/26/20 06:55 Pulse Ox 92 L 01/26/20 06:55 Intake & Output 01/25/20 01/26/20 01/26/20 18:59 06:59 18:59 Intake Total 360 500 Output Total 250 1750 Balance 110 -1250 Weight 84.5 kg Intake: IV 160 Sodium Chloride 0.9% 1, 160 000 ml @ 20 mls/hr IV . Q24H [facility] Rx#:[id number] Intake, IV Titration 200 Amount Piperacillin-Tazobactam 3 200 .375 gm In Sodium Chloride 0.9% 100 ml @ 25 mls/hr IVPB Q8HR [facility] Rx# :[id number] Oral 500 Output: Urine 250 1750 Other: Voiding Method Indwelling Catheter Indwelling Catheter Indwelling Catheter # Bowel Movements 0 - Exam Gen: This is a 84-year-old male sitting up in the bed awake, alert and oriented 2, well-developed, well-nourished. Temp is 97.5 F, pulse is 77, respirations are 18, blood pressure is 154/67, oxygen saturation is 92% on 4 L via nasal cannula HEENT: Head is atraumatic, normocephalic. Pupils equal, round. Sclerae is anicteric. NECK: Supple. No JVD. No lymphadenopathy. No thyromegaly. LUNGS: Diminished breath sounds at the bases with some scattered rhonchi and crackles noted. No intercostal retractions. HEART: S1, S2 are muffled ABDOMEN: Soft. Bowel sounds are present. No masses. No tenderness. EXTREMITIES: No pedal edema. No calf tenderness. Mild lower extremity edema noted +1 NEUROLOGICAL: Patient is awake, alert and oriented x2. Diffuse weakness noted - Labs CBC & Chem 7: 01/26/20 08:16 01/26/20 08:16 Labs: Abnormal Lab Results - Last 24 Hours (Table) 01/25/20 01/26/20 01/26/20 Range/Units 16:44 01:44 08:16 RBC 3.76 L (4.30-5.90) m/uL Hgb 8.2 L (13.0-17.5) gm/dL Hct 28.3 L (39.0-53.0) % MCV 75.2 L (80.0-100.0) fL MCH 21.9 L (25.0-35.0) pg MCHC 29.1 L (31.0-37.0) g/dL RDW 19.4 H (11.5-15.5) % Lymphocytes # (Manual) 0.64 L (1.0-4.8) k/uL Nucleated RBCs 2 H (0-0) /100 WBC Potassium (3.5-5.1) mmol/L Chloride (98-107) mmol/L Carbon Dioxide (22-30) mmol/L BUN (9-20) mg/dL Creatinine (0.66-1.25) mg/dL POC Glucose (mg/dL) 143 H 155 H (75-99) mg/dL 01/26/20 01/26/20 Range/Units 08:16 12:08 RBC (4.30-5.90) m/uL Hgb (13.0-17.5) gm/dL Hct (39.0-53.0) % MCV (80.0-100.0) fL MCH (25.0-35.0) pg MCHC (31.0-37.0) g/dL RDW (11.5-15.5) % Lymphocytes # (Manual) (1.0-4.8) k/uL Nucleated RBCs (0-0) /100 WBC Potassium 3.4 L (3.5-5.1) mmol/L Chloride 95 L (98-107) mmol/L Carbon Dioxide 34 H (22-30) mmol/L BUN 60 H (9-20) mg/dL Creatinine 2.07 H (0.66-1.25) mg/dL POC Glucose (mg/dL) 133 H (75-99) mg/dL Assessment and Plan Assessment: Fall and severe pain with right lateral eighth and ninth rib fractures Congestive heart failure, acute exacerbation, acute on chronic diastolic dysfunction with an EF between 45 and 50% chronic obstructive pulmonary disease, acute exacerbation with possible bilateral pneumonia with possibly gram-negative bacilli Possible bilateral bronchopneumonia or aspiration pneumonia Increased WBC Anemia, microcytic, possible acute blood loss anemia, requiring transfusion, etiology undetermined History of nicotine dependence Increased creatinine with acute renal failure with acute tubular necrosis diabetes mellitus 2 with hyperglycemia uncontrolled Increased creatinine with acute renal failure with acute tubular necrosis Troponin 0.088, indeterminate. Possible acute non-ST segment elevation era cardial infarction History of coronary artery disease history of angina History of Cerebrovascular accident, TIA history of dementia Hyperlipidemia Hypertension History of diabetes mellitus type 2 History of memory impairment history of degenerative joint disease history of pulmonary embolism history of prostate disorder History of benign prostatic hypertrophy History of coronary artery disease, CABG with stents History of anxiety, depression no code, no CPR, no vent Gait dysfunction Recommendations and discussion: Recommend to continue current medications, management, and symptomatic treatme nt. Will continue with IV antibiotics at this time. Will continue with IV Lasix and repeat chest x-ray is pending at this time. Nephrology following. Will repeat a.m. labs. Patient needs constant encouragement to continue using incentive spirometer at least 10 times every hour while awake. The plan is for [facility] once the patient is stabilized. Due to multiple complex medical issues, prognosis is guarded. Further recommendations to follow. Possible discharge in 24-48 hours.
--- NOTE | 2020-01-26 14:17 | XR ---
EXAMINATION TYPE: XR chest 1V portable DATE OF EXAM: 01/26/2020 COMPARISON: 01/24/2020 HISTORY: Follow-up pneumonia TECHNIQUE: Single frontal view of the chest is obtained. FINDINGS: Bilateral infiltrate and small effusion. Heart is enlarged and is postoperative change. Po stsurgical change left shoulder. IMPRESSION: 1. Diffuse pleural-parenchymal changes are stable correlate for multifocal pneumonia versus pulmonary edema.
[2020-01-26] MEDS: SODIUM CHLORIDE 0.9% 1,000 ML IV SCH (15:18)
[2020-01-26] MEDS: RIVAROXABAN 15 MG TAB PO SCH (16:21)
[2020-01-26 17:06] LABS: Glucose,Whole Blood 150 mg/dL (75-99)
[2020-01-26] MEDS: ATORVASTATIN 40 MG TAB PO SCH (20:18)
[2020-01-26 21:15] LABS: Glucose,Whole Blood 186 mg/dL (75-99)
[2020-01-26] MEDS: DONEPEZIL 5 MG TAB PO SCH (22:38)
[2020-01-26] MEDS: INSULIN DETEMIR (LEVEMIR) 100 UNIT/ML SYR SQ SCH (22:38)
[2020-01-27] MEDS: PIPERACILLIN-TAZOBACTAM 3.375 GM in SODIUM CHLORIDE 0.9% 100 ML IVPB SCH ×3 (00:50→15:43)
[2020-01-27 08:29] LABS: Anisocytosis Slight; Basophils % (A) 0 %; Eosinophils # (A) 0.4 k/uL (0-0.7); Eosinophils % (A) 4 %; HCT 29.8 % (39.0-53.0); HGB 8.6 gm/dL (13.0-17.5); Hypochromasia Marked; Lymphocytes # (A) 0.9 k/uL (1.0-4.8); Lymphocytes % (A) 9 %; MCH 21.8 pg (25.0-35.0); MCHC 28.9 g/dL (31.0-37.0); MCV 75.5 fL (80.0-100.0); Mean Platelet Volume 7.6; Microcytosis Moderate; Monocytes # (A) 0.7 k/uL (0-1.0); Monocytes % (A) 7 %; Neutrophils % (A) 77 %; Platelet Count 433 k/uL (150-450); Poikilocytosis Slight; RBC 3.95 m/uL (4.30-5.90); RDW 19.9 % (11.5-15.5); WBC 10.5 k/uL (3.8-10.6)
--- NOTE | 2020-01-27 09:06 | P.PN ---
Subjective Patient is seen in follow-up for acute kidney injury. Labs pending from today. Maintained on IV Lasix. Nonoliguric. Has a Martines catheter. Oral intake is fair. Denies chest pain. Creatinine 2.07 as of yesterday. Vital signs are stable. General: The patient appeared well nourished and normally developed. HEENT: Head exam is unremarkable. Neck is without jugular venous distension. LUNGS: Breath sounds decreased. Scattered rhonchi. HEART: Rate and Rhythm are regular. First and second heart sounds normal. No murmurs, rubs or gallops. ABDOMEN: Abdominal exam reveals normal bowel sounds. Non-tender and non- distended. No evidence of peritonitis. EXTREMITITES: No clubbing, cyanosis, or edema. Objective - Vital Signs Vital signs: Vital Signs Temp 97.9 F 01/27/20 05:10 Pulse 83 01/27/20 05:10 Resp 20 01/27/20 05:10 BP 133/72 01/27/20 05:10 Pulse Ox 72 L 01/27/20 05:10 Intake & Output 01/26/20 01/27/20 01/27/20 18:59 06:59 18:59 Intake Total 300 Output Total 1900 1200 Balance -1900 -900 Weight 82 kg Intake: Oral 300 Output: Urine 1900 1200 Uretheral (Martines) 600 Other: Voiding Method Indwelling Catheter Indwelling Catheter # Voids 0 # Bowel Movements 0 0 - Labs CBC & Chem 7: 01/27/20 08:06 01/26/20 08:16 Labs: Abnormal Lab Results - Last 24 Hours (Table) 01/26/20 01/26/20 01/26/20 Range/Units 08:16 08:16 12:08 RBC 3.76 L (4.30-5.90) m/uL Hgb 8.2 L (13.0-17.5) gm/dL Hct 28.3 L (39.0-53.0) % MCV 75.2 L (80.0-100.0) fL MCH 21.9 L (25.0-35.0) pg MCHC 29.1 L (31.0-37.0) g/dL RDW 19.4 H (11.5-15.5) % Neutrophils # (1.3-7.7) k/uL Lymphocytes # (1.0-4.8) k/uL Lymphocytes # (Manual) 0.64 L (1.0-4.8) k/uL Nucleated RBCs 2 H (0-0) /100 WBC Potassium 3.4 L (3.5-5.1) mmol/L Chloride 95 L (98-107) mmol/L Carbon Dioxide 34 H (22-30) mmol/L BUN 60 H (9-20) mg/dL Creatinine 2.07 H (0.66-1.25) mg/dL POC Glucose (mg/dL) 133 H (75-99) mg/dL 01/26/20 01/26/20 01/27/20 Range/Units 16:49 20:57 08:06 RBC 3.95 L (4.30-5.90) m/uL Hgb 8.6 L (13.0-17.5) gm/dL Hct 29.8 L (39.0-53.0) % MCV 75.5 L (80.0-100.0) fL MCH 21.8 L (25.0-35.0) pg MCHC 28.9 L (31.0-37.0) g/dL RDW 19.9 H (11.5-15.5) % Neutrophils # 8.0 H (1.3-7.7) k/uL Lymphocytes # 0.9 L (1.0-4.8) k/uL Lymphocytes # (Manual) (1.0-4.8) k/uL Nucleated RBCs (0-0) /100 WBC Potassium (3.5-5.1) mmol/L Chloride (98-107) mmol/L Carbon Dioxide (22-30) mmol/L BUN (9-20) mg/dL Creatinine (0.66-1.25) mg/dL POC Glucose (mg/dL) 150 H 186 H (75-99) mg/dL Assessment and Plan Plan: Assessment: 1. Acute kidney injury secondary to ATN secondary to nonsteroidals. Also component of cardiorenal syndrome. Creatinine 2.07 as of yesterday. UA benign. No hydronephrosis on kidney ultrasound. 2. Acute on chronic systolic CHF with ejection fraction of 45-50%. 3. Insulin-dependent diabetes mellitus. 4. Volume overload. 5. Chronic kidney disease. Unknown baseline renal function. Plan: Maintain IV Lasix 40 mg twice daily - will transition to oral upon discharge. Avoid nephrotoxins. Continue to monitor renal function and urine output.
[2020-01-27 09:11] LABS: Calcium 8.7 mg/dL (8.4-10.2); Magnesium 2.2 mg/dL (1.6-2.3); Potassium 3.8 mmol/L (3.5-5.1)
[2020-01-27] MEDS: BUDESONIDE 1 MG/2 ML NEBU INHALATION SCH (09:13)
[2020-01-27] MEDS: IPRATROPIUM-ALBUTEROL 3 ML NEB INHALATION SCH ×3 (09:13→16:25)
[2020-01-27] MEDS: ALPRAZolam 0.25 MG TAB PO PRN (09:34)
[2020-01-27] MEDS: HYDROcodone/APAP 5-325MG 1 EACH TAB PO PRN (09:34)
[2020-01-27] MEDS: FUROSEMIDE 10 MG/ML 4 ML VIAL IV SCH (09:34)
[2020-01-27] MEDS: PANTOPRAZOLE 40 MG TABLET PO SCH (09:35)
[2020-01-27] MEDS: glipiZIDE 10 MG TAB PO SCH (09:35)
[2020-01-27] MEDS: OXYBUTYNIN CHLORIDE 5 MG TAB PO SCH (09:35)
[2020-01-27] MEDS: METOPROLOL TARTRATE 25 MG TAB PO SCH (09:35)
[2020-01-27] MEDS: INSULIN ASPART (NovoLOG) 100 UNIT/ML VIAL SQ SCH ×4 (09:35→13:23)
[2020-01-27] MEDS: SERTRALINE 50 MG TAB PO SCH (09:35)
[2020-01-27] MEDS: TAMSULOSIN 0.4 MG CAP.ER.24H PO SCH (09:35)
[2020-01-27 11:03] VITALS: BMI 27.4
[2020-01-27 11:50] LABS: Glucose,Whole Blood 165 mg/dL (75-99)
--- NOTE | 2020-01-27 12:31 | P.PN ---
Subjective Progress Note Date: 01/27/20 The patient was seen today 01/27/2020 in follow-up on the regular medical floor. He is awake and alert in no acute distress. He is afebrile. Maintaining O2 saturations in the 90s on 4 L/m per nasal cannula. He did drop down into the 70s on 2 L/m per nasal cannula. White count 10.5. Hemoglobin 8.6. Creatinine 1.73. He remains on IV diuretics. Currently in a negative balance. Weight stable. Objective - Vital Signs Vital signs: Vital Signs Temp 97.9 F 01/27/20 05:10 Pulse 80 01/27/20 09:31 Resp 18 01/27/20 08:00 BP 133/72 01/27/20 05:10 Pulse Ox 72 L 01/27/20 05:10 Intake & Output 01/26/20 01/27/20 01/27/20 18:59 06:59 18:59 Intake Total 300 Output Total 1900 1200 600 Balance -1900 -900 -600 Weight 82 kg 82 kg Intake: Oral 300 Output: Urine 1900 1200 600 Uretheral (Martines) 600 600 Other: Voiding Method Indwelling Catheter Indwelling Catheter Indwelling Catheter # Voids 0 # Bowel Movements 0 0 - Exam GENERAL EXAM: Alert, pleasant, 84-year-old white male, on 4 L of oxygen, comfortable in no apparent distress. HEAD: Normocephalic/atraumatic. EYES: Normal reaction of pupils, equal size. Conjunctiva pink, sclera white. NOSE: Clear with pink turbinates. THROAT: No erythema or exudates. NECK: No masses, no JVD, no thyroid enlargement, no adenopathy. CHEST: No chest wall deformity. Symmetrical expansion. Chest wall tenderness over right chest related to multiple fractures LUNGS: Equal air entry with right basilar crackles but no wheeze, rhonchi or dullness. CVS: Regular rate and rhythm, normal S1 and S2, no gallops, no murmurs, no rubs ABDOMEN: Soft, nontender. No hepatosplenomegaly, normal bowel sounds, no guarding or rigidity. EXTREMITIES: No clubbing, no edema, no cyanosis, 2+ pulses and upper and lower extremities. MUSCULOSKELETAL: Muscle strength and tone normal. SPINE: No scoliosis or deformity SKIN: No rashes CENTRAL NERVOUS SYSTEM: Alert and oriented -2. No focal deficits, tone is normal in all 4 extremities. PSYCHIATRIC: Alert and oriented -2. Appropriate affect. Intact judgment and insight. - Labs CBC & Chem 7: 01/27/20 08:06 01/27/20 08:06 Labs: Abnormal Lab Results - Last 24 Hours (Table) 01/26/20 01/26/20 01/27/20 Range/Units 16:49 20:57 08:06 RBC 3.95 L (4.30-5.90) m/uL Hgb 8.6 L (13.0-17.5) gm/dL Hct 29.8 L (39.0-53.0) % MCV 75.5 L (80.0-100.0) fL MCH 21.8 L (25.0-35.0) pg MCHC 28.9 L (31.0-37.0) g/dL RDW 19.9 H (11.5-15.5) % Neutrophils # 8.0 H (1.3-7.7) k/uL Lymphocytes # 0.9 L (1.0-4.8) k/uL Chloride (98-107) mmol/L Carbon Dioxide (22-30) mmol/L BUN (9-20) mg/dL Creatinine (0.66-1.25) mg/dL Glucose (74-99) mg/dL POC Glucose (mg/dL) 150 H 186 H (75-99) mg/dL 01/27/20 01/27/20 Range/Units 08:06 11:49 RBC (4.30-5.90) m/uL Hgb (13.0-17.5) gm/dL Hct (39.0-53.0) % MCV (80.0-100.0) fL MCH (25.0-35.0) pg MCHC (31.0-37.0) g/dL RDW (11.5-15.5) % Neutrophils # (1.3-7.7) k/uL Lymphocytes # (1.0-4.8) k/uL Chloride 95 L (98-107) mmol/L Carbon Dioxide 34 H (22-30) mmol/L BUN 46 H (9-20) mg/dL Creatinine 1.73 H (0.66-1.25) mg/dL Glucose 108 H (74-99) mg/dL POC Glucose (mg/dL) 165 H (75-99) mg/dL Assessment and Plan Assessment: 1 fall with traumatic right-sided fractures 5 through 10, pain is under better control 2 skeletal chest wall pain involving the right lung/chest wall, pain is under better control 3 acute hypoxic respiratory failure currently on 4 L of oxygen by nasal cannula. This is related to poor inspiratory effort secondary to pain in addition to a component of CHF/pulmonary edema. The patient has background COPD, doubt pulmonary embolism is contributing to this as the patient was receiving anticoagulation with Xarelto on outpatient basis. 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 received 1 unit of packed red blood cells this admission. 13 history of falls 14 hypertension 15 acute kidney injury with a creatinine being up to 2.07 and the patient is c urrently on IV diuretics again 15 impaired performance and functional status secondary to above-mentioned comorbidities Plan: Chest x-ray reviewed Remains on Zosyn Continued on IV diuretics per nephrology Adequate pain control Encouraging incentive spirometer Plan is for subacute rehab in [facility] I, the cosigning physician, performed a history & physical examination of the patient. Lungs sounds with crackles in the right base. Maintaining good O2 saturations in the 90s on 4 liters nasal cannula. I discussed the assessment and plan of care with my nurse practitioner, Esme Mata. I attest to the above note as dictated by her.
[2020-01-27 12:58] VITALS: BP 138/88; TEMP 96.3
--- NOTE | 2020-01-27 13:46 | P.DS ---
Providers Date of admission: 01/20/20 16:23 Expected date of discharge: 01/27/20 Attending physician: Brandon Hines MD Consults: 01/20/20 17:40 Consult Physician Routine Consulting Provider: Anderson Poe Consult Reason/Comments: rib fracture hypoxia Do you want consulting provider notified?: Yes 01/20/20 18:29 Consult Physician Routine Consulting Provider: Cecilia Napoles Consult Reason/Comments: chf Do you want consulting provider notified?: Yes 01/22/20 09:16 Consult Physician Stat Consulting Provider: Eileen Morales Consult Reason/Comments: elevated creatinine Do you want consulting provider notified?: Yes Primary care physician: Stated None Hospital Course: Final diagnosis Fall and severe pain with right lateral eighth and ninth rib fractures Congestive heart failure, acute exacerbation, acute on chronic diastolic dysfunction with an EF between 45 and 50% chronic obstructive pulmonary disease, acute exacerbation with possible bilateral pneumonia with possibly gram-negative bacilli Possible bilateral bronchopneumonia or aspiration pneumonia Increased WBC Anemia, microcytic, possible acute blood loss anemia, requiring transfusion, etiology undetermined History of nicotine dependence Increased creatinine with acute renal failure with acute tubular necrosis diabetes mellitus 2 with hyperglycemia uncontrolled Increased creatinine with acute renal failure with acute tubular necrosis Troponin 0.088, indeterminate. Possible acute non-ST segment elevation myocardial infarction History of coronary artery disease history of angina History of Cerebrovascular accident, TIA history of dementia Hyperlipidemia Hypertension History of diabetes mellitus type 2 History of memory impairment history of degenerative joint disease history of pulmonary embolism history of prostate disorder History of benign prostatic hypertrophy History of coronary artery disease, CABG with stents History of anxiety, depression no code, no CPR, no vent Gait dysfunction Discharge disposition Patient is being discharged in a stable condition with guarded prognosis to [facility] for continued PT/OT therapy. Patient will also follow-up with Dr. Mcdowell along with Dr. Hampton in the outpatient setting. Patient will continue on a short course of oral antibiotics in the form of Augmentin twice daily for the next 5 days and then may discontinue. Patient will also continue with bronchodilators. Total time taken is 35 minutes. History of present illness This is an 84-year-old male who was recently admitted with recent fall with multiple right-sided rib fractures and some right-sided chest pain and was being closely monitored. Multiple medical consultations were following. Patient remains on Xarelto and will continue at this time in the outpatient setting. During hospitalization patient had worsening creatinine although is on a downward trend now and improving and was maintained on IV Lasix for diuresis. Patient will continue on oral Lasix in the outpatient setting. Patient needs close monitoring of creatinine in a few days and may adjust diuretic therapy in the outpatient setting. It is recommended for patient to follow-up with nephrol spike in the outpatient setting as well. Patient is currently maintained on oxygen via nasal cannula between 2-4 L and will continue at this time. Patient continues to be quite weak and will need continued PT/OT therapy. Patient will also continue on oral antibiotics in the form of Augmentin twice daily for the next 5 days and then may discontinue. Patient is to continue with bronchodilators and instructed patient to continue using incentive spirometer at least 10 times every hour while awake. Patient needs continued encouragement on the use of the incentive spirometer. Currently no reports of chest pain, worsening shortness of breath, or palpitations. Patient is afebrile. No reports of nausea or vomiting and patient is tolerating diet. Currently patient's condition is stable and is being transferred to [facility] today. On exam vital signs are stable. Temp is 96.3 F, pulse is 96, respirations are 24, blood pressure is 138/88, oxygen saturation is 100% % on 4 L via nasal cannula. Cardio S1, S2 are muffled. Respiratory system shows diminished breath sounds at the bases with some rhonchi noted. Soft and nontender. Nervous system shows mild diffuse weakness. Please refer to medication reconciliation sheet for a list of medications. Patient Condition at Discharge: Stable Plan - Discharge Summary Discharge Rx Participant: No New Discharge Prescriptions: New Amoxic-Pot Clav 875-125Mg [Augmentin 875-125] 1 tab PO Q12HR 5 Days #10 tab Ipratropium-Albuterol Nebulize [Duoneb 0.5 mg-3 mg/3 ml Soln] 3 ml INHALATION RT-QID ml Ipratropium-Albuterol Nebulize [Duoneb 0.5 mg-3 mg/3 ml Soln] 3 ml INHALATION RT-QID PRN ml PRN Reason: Shortness Of Breath Or Wheezing Insulin Detemir (Levemir) [Levemir] 10 unit SQ HS syr HYDROcodone/APAP 5-325MG [Barnard 5-325] 1 each PO Q6HR PRN #4 tab PRN Reason: Pain INSULIN ASPART (NovoLOG) [NovoLOG (formulary)] 5 unit SQ AC-TID vial INSULIN ASPART (NovoLOG) [NovoLOG (formulary)] 0 unit SQ ACHS vial Pantoprazole [Protonix] 40 mg PO AC-BID tablet. Budesonide [Pulmicort] 1 mg INHALATION RT-BID ml Acetaminophen Tab [Tylenol] 500 mg PO Q6HR PRN tab PRN Reason: Fever And/ Or Pain ALPRAZolam [Xanax] 0.25 mg PO TID PRN #3 tab PRN Reason: Anxiety Rivaroxaban [Xarelto] 15 mg PO W/SUPPER tab Continue Sertraline [Zoloft] 50 mg PO DAILY Pravastatin Sodium [Pravachol] 40 mg PO HS Oxybutynin Chloride [Ditropan] 5 mg PO BID glipiZIDE [Glucotrol XL] 10 mg PO BID Tamsulosin [Flomax] 0.4 mg PO DAILY Metoprolol Tartrate 25 mg PO DAILY Donepezil [Aricept] 5 mg PO HS metFORMIN HCL 1,000 mg PO DAILY Changed Omeprazole 40 mg PO BID #0 Discontinued Rivaroxaban [Xarelto] 20 mg PO HS Discharge Medication List Donepezil [Aricept] 5 mg PO HS 01/20/20 [History] Metoprolol Tartrate 25 mg PO DAILY 01/20/20 [History] Oxybutynin Chloride [Ditropan] 5 mg PO BID 01/20/20 [History] Pravastatin Sodium [Pravachol] 40 mg PO HS 01/20/20 [History] Sertraline [Zoloft] 50 mg PO DAILY 01/20/20 [History] Tamsulosin [Flomax] 0.4 mg PO DAILY 01/20/20 [History] glipiZIDE [Glucotrol XL] 10 mg PO BID 01/20/20 [History] metFORMIN HCL 1,000 mg PO DAILY 01/20/20 [History] ALPRAZolam [Xanax] 0.25 mg PO TID PRN #3 tab 01/27/20 [Rx] Acetaminophen Tab [Tylenol] 500 mg PO Q6HR PRN tab 01/27/20 [Rx] Amoxic-Pot Clav 875-125Mg [Augmentin 875-125] 1 tab PO Q12HR 5 Days #10 tab 01/27/20 [Rx] Budesonide [Pulmicort] 1 mg INHALATION RT-BID ml 01/27/20 [Rx] HYDROcodone/APAP 5-325MG [Barnard 5-325] 1 each PO Q6HR PRN #4 tab 01/27/20 [Rx] INSULIN ASPART (NovoLOG) [NovoLOG (formulary)] 0 unit SQ ACHS vial 01/27/20 [Rx] INSULIN ASPART (NovoLOG) [NovoLOG (formulary)] 5 unit SQ AC-TID vial 01/27/20 [Rx] Insulin Detemir (Levemir) [Levemir] 10 unit SQ HS syr 01/27/20 [Rx] Ipratropium-Albuterol Nebulize [Duoneb 0.5 mg-3 mg/3 ml Soln] 3 ml INHALATION RT-QID ml 01/27/20 [Rx] Ipratropium-Albuterol Nebulize [Duoneb 0.5 mg-3 mg/3 ml Soln] 3 ml INHALATION RT-QID PRN ml 01/27/20 [Rx] Omeprazole 40 mg PO BID #0 01/27/20 [Rx] Pantoprazole [Protonix] 40 mg PO AC-BID tablet. 01/27/20 [Rx] Rivaroxaban [Xarelto] 15 mg PO W/SUPPER tab 01/27/20 [Rx] Follow up Appointment(s)/Referral(s): Jeff Mcdowell MD [STAFF PHYSICIAN] - 2 Weeks Thaddeus Hampton DO [STAFF PHYSICIAN] - 1 Week Ambulatory/Diagnostic Orders: Basic Metabolic Panel [LAB.AMB] Time Frame: 3 Days, Location: None Selected Complete Blood Count w/diff [LAB.AMB] Time Frame: 3 Days, Location: None Selected Activity/Diet/Wound Care/Special Instructions: Patient is going to [facility] Activity as tolerated Continue with antibiotics for 5 days until complete Continue with PT/OT therapy Continue with breathing treatments Continue to monitor blood sugar before meals at bedtime and treat accordingly with sliding scale Continue with current dysphasia 3 chopped diet heart healthy Repeat labs in 2-3 days to monitor CBC and BMP. Monitor creatinine closely and adjust diuretics in the outpatient setting Follow-up with nephrology upon discharge Follow-up with primary care provider upon discharge Discharge Disposition: TRANSFER TO SNF/ECF
[2020-01-27 15:41] VITALS: RESP 18
[2020-01-27 16:26] VITALS: PULSE 92
--- NOTE | 2020-02-01 13:17 | CDI ---
Documentation Clarification Form Date: 02/01/20 From: Ibis Delarosa CCS Phone: If you have a question about this query, please contact Alexia Ruiz, Blender Machine Operator at [phone] between 8am and 5pm. Admit Date: 01/20/20 Discharge Date:01/27/20 Patient Name: Nnamdi Alaniz Visit Number: [id number] ATTENTION: The Clinical Documentation Specialists (CDI) and [facility] Coding Staff appreciate your assistance in clarifying documentation. Please respond to the clarification below the line at the bottom and electronically sign. The CDI & [facility] Coding staff will review the response and follow-up if needed. Please note: Queries are made part of the Legal Health Record. If you have any questions, please contact the author of this message via ITS. Dear Dr. 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 History/Risk Factors: HTN, DM, CHF, PNA, [place] , ATN Clinical Indicators: Confused, unable to give coherent history, ROS unable to obtain due to mental status, family history, social history and review of systems could not be taken because of the patient's change in mental status. 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 Consults: Deepika In your professional opinion, can you please clarify the specific type of Encephalopathy, if known? Anoxic Encephalopathy Hypertensive Encephalopathy Metabolic Encephalopathy Toxic Encephalopathy (specify drug) Traumatic Encephalopathy Other, please specify Unable to determine Unable to determine MTDD
--- NOTE | 2020-02-01 13:27 | CDI ---
Documentation Clarification Form Date: 02/01/20 From: Ibis Delarosa CCS Phone: If you have a question about this query, please contact Alexia Ruiz, [employer] Salesperson at [phone] between 8am and 5pm. Admit Date: 01/20/20 Discharge Date:01/27/20 Patient Name: Nnamdi Alaniz Visit Number: [id number] ATTENTION: The Clinical Documentation Specialists (CDI) and [facility] Coding Staff appreciate your assistance in clarifying documentation. Please respond to the clarification below the line at the bottom and electronically sign. The CDI & [facility] Coding staff will review the response and follow-up if needed. Please note: Queries are made part of the Legal Health Record. If you have any questions, please contact the author of this message via ITS. Dear Dr. Anthony, Possible acute non- ST myocardial infarction is documented in the: H&P, PNs, DS. Patient History/Risk Factors: HHD, CHF, CAD, PNA, Anemia, DM Clinical Indicators: Elevated Troponin Troponin: 0.88, 0.121, 0.147 EKG Results: Sinus tachycardia w/ 1st degree AV block Treatment: Heparin 5,000 unit SQ Q 12 HR Consult: July In order to capture the severity of condition and necessary documentation specificity, please clarify: Type of Infarction: NSTEMI type I NSTEMI type II (cause if known) Unable to determine Other Condition, please specify Unable to determine Unable to determine MTDD
== END 2020-01-27 17:39 | DRG 280 ==
LOC: 3SCARD 16:23 → 6NMEDSUR 01-22 19:52
PROVIDERS: ADMIT Internal Medicine; ATTEND Internal Medicine
PROC: 30233N1 Transfusion of Nonautologous Red Blood Cells into Peripheral Vein, Percutaneous Approach (ICD-10-PCS; principal; 2020-01-24)
DX: I13.0 Hypertensive heart and chronic kidney disease with heart failure and stage 1 through stage 4 chronic kidney disease, or unspecified chronic kidney disease (principal); N17.0 Acute kidney failure with tubular necrosis; I21.4 Non-ST elevation (NSTEMI) myocardial infarction; J96.21 Acute and chronic respiratory failure with hypoxia; I50.33 Acute on chronic diastolic (congestive) heart failure; J69.0 Pneumonitis due to inhalation of food and vomit; J15.6 Pneumonia due to other Gram-negative bacteria; E87.2 Acidosis; G93.40 Encephalopathy, unspecified; S22.41XA Multiple fractures of ribs, right side, initial encounter for closed fracture; I69.354 Hemiplegia and hemiparesis following cerebral infarction affecting left non-dominant side; D62 Acute posthemorrhagic anemia; I67.3 Progressive vascular leukoencephalopathy; D63.1 Anemia in chronic kidney disease; I95.9 Hypotension, unspecified; E11.22 Type 2 diabetes mellitus with diabetic chronic kidney disease; N18.3 Chronic kidney disease, stage 3 (moderate); F03.90 Unspecified dementia, unspecified severity, without behavioral disturbance, psychotic disturbance, mood disturbance, and anxiety; Z66 Do not resuscitate; I25.10 Atherosclerotic heart disease of native coronary artery without angina pectoris; E78.5 Hyperlipidemia, unspecified; E11.65 Type 2 diabetes mellitus with hyperglycemia; N40.0 Benign prostatic hyperplasia without lower urinary tract symptoms; M19.90 Unspecified osteoarthritis, unspecified site; F41.9 Anxiety disorder, unspecified; F32.9 Major depressive disorder, single episode, unspecified; J43.9 Emphysema, unspecified; E87.5 Hyperkalemia; R07.89 Other chest pain; R63.0 Anorexia; I08.3 Combined rheumatic disorders of mitral, aortic and tricuspid valves; W01.0XXA Fall on same level from slipping, tripping and stumbling without subsequent striking against object, initial encounter; I25.2 Old myocardial infarction; T39.395A Adverse effect of other nonsteroidal anti-inflammatory drugs [NSAID], initial encounter; Z71.3 Dietary counseling and surveillance; Z79.01 Long term (current) use of anticoagulants; Z79.84 Long term (current) use of oral hypoglycemic drugs; Z79.899 Other long term (current) drug therapy; Z95.1 Presence of aortocoronary bypass graft; Z86.711 Personal history of pulmonary embolism; Z87.891 Personal history of nicotine dependence; Z95.5 Presence of coronary angioplasty implant and graft; Z90.49 Acquired absence of other specified parts of digestive tract; Z98.890 Other specified postprocedural states; Z96.651 Presence of right artificial knee joint; Z96.649 Presence of unspecified artificial hip joint; Z91.81 History of falling; Z80.1 Family history of malignant neoplasm of trachea, bronchus and lung; Z82.49 Family history of ischemic heart disease and other diseases of the circulatory system
CPT/HCPCS: 71045; 76770; 80048; 80053; 81003; 83036; 83735; 83880; 84100; 84132; 84484; 85025; 85027; 86850; 86900; 86901; 86920; 87502; 93306; 94640; 94760